=== PATIENT | male | born 1955 | race African-American/Black ===

== ENCOUNTER 2016-09-25 11:49 | Emergency (ER) | payer MEDICARE ==
[2016-09-25 15:51] LABS: BASOPHILS 0.1 % (0-2); EOSINOPHILS 0.7 % (0-7); HEMATOCRIT 45.1 % (42.0-54.0); HEMOGLOBIN 15.9 g/dL (13.5-17.5); IMMATURE GRANULOCYTES 0.1 % (0-5); LYMPHOCYTES 15.5 % (15-50); MCH 30.2 pg (26.0-34.0); MCHC 35.3 g/dL (31.0-37.0); MCV 85.7 fL (80.0-100.0); MEAN PLATELET VOLUME 9.9 fL (7.4-10.4); MONOCYTES 5.3 % (2-11); NEUTROPHILS 78.3 % (40-80); PLATELET COUNT 236 10x3/uL (130-400); RBC 5.26 10x6/uL (4.20-6.10); RDW 13.6 % (11.5-14.5); WBC 7.5 10x3/uL (4.8-10.8)
[2016-09-25 16:23] LABS: ALBUMIN 3.9 g/dL (3.4-5.0); ALKALINE PHOSPHATASE 52 U/L (46-116); ALT (SGPT) 33 U/L (10-68); CALC OSMOLALITY 273 mosm/kg (275-300); CALCIUM 9.4 mg/dL (8.5-10.1); CARBON DIOXIDE 29.6 mmol/L (21.0-32.0); CHLORIDE - SERUM 99 mmol/L (98-107); GLUCOSE 138 mg/dL (74-106); POTASSIUM - SERUM 3.8 mmol/L (3.5-5.1); PROTEIN - SERUM 7.5 g/dL (6.4-8.2); SODIUM 137 mmol/L (136-145); UREA NITROGEN 7 mg/dL (7-18); eGFR NON AFRICAN AMERICAN 80 mL/min (90-120)
== END 2016-09-25 16:45 | disposition home or self-care (01) ==
LOC: D.ER 11:49
PROVIDERS: Emergency Medicine
DX: M25.511 Pain in right shoulder (principal); S46.911A Strain of unspecified muscle, fascia and tendon at shoulder and upper arm level, right arm, initial encounter; X58.XXXA Exposure to other specified factors, initial encounter; Y93.89 Activity, other specified; Y92.89 Other specified places as the place of occurrence of the external cause; M62.838 Other muscle spasm; M75.91 Shoulder lesion, unspecified, right shoulder; M54.12 Radiculopathy, cervical region; E11.9 Type 2 diabetes mellitus without complications; K21.9 Gastro-esophageal reflux disease without esophagitis; I10 Essential (primary) hypertension; F17.200 Nicotine dependence, unspecified, uncomplicated

== ENCOUNTER 2016-11-01 09:53 | Emergency (ER) | payer MEDICARE | END 2016-11-01 10:45 | disposition home or self-care (01) | LOC: D.ER 09:53 | DX: R52 Pain, unspecified (principal); T14.8 Other injury of unspecified body region; X58.XXXA Exposure to other specified factors, initial encounter; I11.9 Hypertensive heart disease without heart failure; I10 Essential (primary) hypertension ==

== ENCOUNTER 2016-12-23 11:01 | Emergency (ER) | payer MEDICARE | END 2016-12-23 11:39 | disposition home or self-care (01) | LOC: D.ER 11:01 | DX: Z03.89 Encounter for observation for other suspected diseases and conditions ruled out (principal); W19.XXXA Unspecified fall, initial encounter; Y93.89 Activity, other specified; Y92.89 Other specified places as the place of occurrence of the external cause; E11.9 Type 2 diabetes mellitus without complications; K21.9 Gastro-esophageal reflux disease without esophagitis; I10 Essential (primary) hypertension; F17.200 Nicotine dependence, unspecified, uncomplicated ==

== ENCOUNTER 2017-09-22 09:29 | Emergency (ER) | payer MEDICARE ==
[2017-09-22 09:56] LABS: BASOPHILS 0.2 % (0-2); EOSINOPHILS 1.7 % (0-7); HEMATOCRIT 40.3 % (42.0-54.0); HEMOGLOBIN 14.9 g/dL (13.5-17.5); IMMATURE GRANULOCYTES 0.2 % (0-5); LYMPHOCYTES 17.8 % (15-50); MCV 83.8 fL (80.0-100.0); MEAN PLATELET VOLUME 9.6 fL (7.4-10.4); MONOCYTES 7.9 % (2-11); NEUTROPHILS 72.2 % (40-80); PLATELET COUNT 199 10x3/uL (130-400); RBC 4.81 10x6/uL (4.20-6.10); RDW 13.3 % (11.5-14.5); WBC 4.8 10x3/uL (4.8-10.8)
[2017-09-22 10:04] LABS: APTT 30.6 SECONDS (22.8-39.4); INR 1.17 (0.85-1.17); PROTIME 14.5 SECONDS (11.6-15.0)
[2017-09-22 10:11] LABS: ALBUMIN 3.8 g/dL (3.4-5.0); ANION GAP 10.3 mmol/L (8-16); BILIRUBIN - TOTAL 0.4 mg/dL (0.2-1.3); CALCIUM 9.2 mg/dL (8.5-10.1); CARBON DIOXIDE 29.6 mmol/L (21.0-32.0); CREATININE - SERUM 1.1 mg/dL (0.6-1.3); POTASSIUM - SERUM 3.9 mmol/L (3.5-5.1); PROTEIN - SERUM 7.7 g/dL (6.4-8.2)
== END 2017-09-22 14:18 | disposition home or self-care (01) ==
LOC: D.ER 09:29
PROVIDERS: Emergency Medicine
DX: G45.9 Transient cerebral ischemic attack, unspecified (principal); I10 Essential (primary) hypertension; E11.9 Type 2 diabetes mellitus without complications; F17.200 Nicotine dependence, unspecified, uncomplicated

== ENCOUNTER 2017-10-15 12:23 | Emergency (ER) | payer MEDICARE ==
[2017-12-05 14:15] VITALS: BMI 29.0
== END 2017-10-15 14:30 | disposition home or self-care (01) ==
LOC: D.ER 12:23
DX: S81.801A Unspecified open wound, right lower leg, initial encounter (principal); W34.00XA Accidental discharge from unspecified firearms or gun, initial encounter; Y93.89 Activity, other specified; Y92.9 Unspecified place or not applicable; E11.9 Type 2 diabetes mellitus without complications; I10 Essential (primary) hypertension

== ENCOUNTER 2017-10-26 09:16 | Emergency (ER) | payer MEDICARE ==
[~2017-10-26] VITALS: Ht 185.4 cm; Wt 90.0 kg
[2017-10-26 09:28] VITALS: Ht 185.4 cm; Wt 90.0 kg
[2017-10-26 10:08] LABS: BASOPHILS 0.2 % (0-2); EOSINOPHILS 1.6 % (0-7); HEMATOCRIT 38.5 % (42.0-54.0); HEMOGLOBIN 14.4 g/dL (13.5-17.5); IMMATURE GRANULOCYTES 0.3 % (0-5); LYMPHOCYTES 13.5 % (15-50); MCH 31.2 pg (26.0-34.0); MCHC 37.4 g/dL (31.0-37.0); MCV 83.3 fL (80.0-100.0); MEAN PLATELET VOLUME 9.8 fL (7.4-10.4); MONOCYTES 6.1 % (2-11); NEUTROPHILS 78.3 % (40-80); PLATELET COUNT 226 10x3/uL (130-400); RBC 4.62 10x6/uL (4.20-6.10); RDW 13.5 % (11.5-14.5); WBC 6.2 10x3/uL (4.8-10.8)
[2017-10-26 10:23] LABS: ALBUMIN 3.9 g/dL (3.4-5.0); ANION GAP 12.4 mmol/L (8-16); BILIRUBIN - TOTAL 0.49 mg/dL (0.2-1.3); CALCIUM 9.7 mg/dL (8.5-10.1); CARBON DIOXIDE 28.2 mmol/L (21.0-32.0); CREATININE - SERUM 1.1 mg/dL (0.6-1.3); POTASSIUM - SERUM 3.6 mmol/L (3.5-5.1)
[2017-10-26] MEDS ORDERED: CYCLOBENZAPRINE10 MG PO (11:42)
[2017-10-26] MEDS ORDERED: IBUPROFEN800 MG PO (11:42)
[2017-10-26] MEDS ORDERED: ACETAMINOPHEN500 M1 PO (11:42)
[2017-10-26 12:20] VITALS: BP 138/89
[2017-12-05 14:15] VITALS: Ht 185.4 cm; Wt 90.0 kg
== END 2017-10-26 12:27 | disposition home or self-care (01) ==
LOC: D.ER 09:16
PROVIDERS: Family Medicine
DX: S81.801A Unspecified open wound, right lower leg, initial encounter (principal); X95.9XXA Assault by unspecified firearm discharge, initial encounter; Y93.89 Activity, other specified; Y92.89 Other specified places as the place of occurrence of the external cause; M79.604 Pain in right leg; I10 Essential (primary) hypertension; Z86.59 Personal history of other mental and behavioral disorders; F17.200 Nicotine dependence, unspecified, uncomplicated

== ENCOUNTER 2017-11-27 22:37 | Emergency (ER) | payer MEDICARE ==
[~2017-11-27] VITALS: Ht 185.4 cm; Wt 90.9 kg
[~2017-11-27 22:37] MED LIST: ACETAMINOPHEN500 M1 PO; CYCLOBENZAPRINE10 MG PO; IBUPROFEN800 MG PO
[2017-11-27 22:41] VITALS: Ht 185.4 cm; Wt 90.9 kg
[2017-11-27 23:38] LABS: HEMATOCRIT 40.3 % (42.0-54.0); HEMOGLOBIN 14.5 g/dL (13.5-17.5); LYMPHOCYTES 6.7 % (15-50); MCH 29.8 pg (26.0-34.0); MCV 82.9 fL (80.0-100.0); MEAN PLATELET VOLUME 9.1 fL (7.4-10.4); NEUTROPHILS 85.3 % (40-80); PLATELET COUNT 263 10x3/uL (130-400); RBC 4.86 10x6/uL (4.20-6.10); RDW 14.4 % (11.5-14.5)
[2017-11-27 23:47] LABS: ALKALINE PHOSPHATASE 54 U/L (46-116); ALT (SGPT) 40 U/L (10-68); BILIRUBIN - TOTAL 0.47 mg/dL (0.2-1.3); CALC OSMOLALITY 256 mosm/kg (275-300); CALCIUM 8.7 mg/dL (8.5-10.1); CARBON DIOXIDE 18.8 mmol/L (21.0-32.0); CHLORIDE - SERUM 93 mmol/L (98-107); GLUCOSE 115 mg/dL (74-106); POTASSIUM - SERUM 3.4 mmol/L (3.5-5.1); SODIUM 128 mmol/L (136-145); UREA NITROGEN 10 mg/dL (7-18); eGFR NON AFRICAN AMERICAN 80 mL/min (90-120)
[2017-11-28] MEDS ORDERED: TYLENOL W/CODEI1 TAB PO (00:27)
[2017-11-28 09:10] VITALS: BP 152/085
[2017-12-05 14:15] VITALS: Ht 185.4 cm; Wt 90.9 kg
== END 2017-11-28 09:11 | disposition home or self-care (01) ==
LOC: D.ER 22:37
PROVIDERS: Emergency Medicine
DX: S09.93XA Unspecified injury of face, initial encounter (principal); V09.9XXA Pedestrian injured in unspecified transport accident, initial encounter; Y93.89 Activity, other specified; Y92.410 Unspecified street and highway as the place of occurrence of the external cause; S16.1XXA Strain of muscle, fascia and tendon at neck level, initial encounter; S09.90XA Unspecified injury of head, initial encounter; F17.200 Nicotine dependence, unspecified, uncomplicated

== ENCOUNTER 2017-12-04 18:57 | Inpatient (IN) | payer MEDICARE ==
[~2017-12-04] VITALS: Ht 185.4 cm; Wt 100.0 kg
[~2017-12-04 18:57] MED LIST changes: +TYLENOL W/CODEI1 TAB PO
[2017-12-04 19:30] VITALS: BP 181/111
[2017-12-04 19:34] LABS: BASOPHILS 0.4 % (0-2); EOSINOPHILS 1.3 % (0-7); HEMATOCRIT 35.8 % (42.0-54.0); HEMOGLOBIN 13.8 g/dL (13.5-17.5); IMMATURE GRANULOCYTES 0.2 % (0-5); LYMPHOCYTES 16.4 % (15-50); MCH 30.7 pg (26.0-34.0); MCHC 38.5 g/dL (31.0-37.0); MCV 79.7 fL (80.0-100.0); MEAN PLATELET VOLUME 9.7 fL (7.4-10.4); MONOCYTES 5.8 % (2-11); NEUTROPHILS 75.9 % (40-80); RBC 4.49 10x6/uL (4.20-6.10); RDW 12.6 % (11.5-14.5); WBC 5.5 10x3/uL (4.8-10.8)
[2017-12-04 19:52] LABS: ALBUMIN 3.6 g/dL (3.4-5.0); ALKALINE PHOSPHATASE 52 U/L (46-116); ALT (SGPT) 37 U/L (10-68); BILIRUBIN - TOTAL 0.68 mg/dL (0.2-1.3); CALC OSMOLALITY 240 mosm/kg (275-300); CALCIUM 8.4 mg/dL (8.5-10.1); CARBON DIOXIDE 24.1 mmol/L (21.0-32.0); CHLORIDE - SERUM 86 mmol/L (98-107); CREATININE - SERUM 0.8 mg/dL (0.6-1.3); GLUCOSE 138 mg/dL (74-106); PROTEIN - SERUM 7.3 g/dL (6.4-8.2); UREA NITROGEN 11 mg/dL (7-18); eGFR NON AFRICAN AMERICAN > 90 mL/min (90-120)
[2017-12-04 19:58] LABS: SODIUM 119 mmol/L (136-145)
[2017-12-04 20:00] VITALS: BP 178/109
[2017-12-04 20:04] LABS: PLATELET COUNT 200 10x3/uL (130-400)
[2017-12-04] MEDS ORDERED: LIPITOR20 MG PO (20:26)
[2017-12-04] MEDS ORDERED: RIOMET500 MG/5 M PO (20:26)
[2017-12-04] MEDS ORDERED: MINIPRESS1 MG PO (20:26)
[2017-12-04] MEDS ORDERED: TYLENOL W/CODEI1 TAB (20:26)
[2017-12-04] MEDS ORDERED: BUSPAR5 MG PO (20:27)
[2017-12-04] MEDS ORDERED: COREG 3.1253.125 MG PO (20:27)
[2017-12-04] MEDS ORDERED: SEROQUEL25 MG PO (20:27)
[2017-12-04] MEDS ORDERED: HALDOL5 MG PO (20:27)
[2017-12-04] MEDS ORDERED: DIOVAN40 MG (20:27)
[2017-12-04] MEDS ORDERED: MOBIC7.5 MG PO (20:27)
[2017-12-04] MEDS ORDERED: BENZTROPINE ME0.5 MG PO (20:27)
[2017-12-04 20:30] VITALS: BP 177/114
[2017-12-04 21:00] VITALS: BP 167/101
[2017-12-04 22:53] VITALS: BP 158/110
[2017-12-04 22:57] LABS: CALC OSMOLALITY 247 mosm/kg (275-300); CALCIUM 8.3 mg/dL (8.5-10.1); CARBON DIOXIDE 29.2 mmol/L (21.0-32.0); CHLORIDE - SERUM 88 mmol/L (98-107); CREATININE - SERUM 0.8 mg/dL (0.6-1.3); GLUCOSE 111 mg/dL (74-106); POTASSIUM - SERUM 3.3 mmol/L (3.5-5.1); SODIUM 123 mmol/L (136-145); UREA NITROGEN 11 mg/dL (7-18); eGFR NON AFRICAN AMERICAN > 90 mL/min (90-120)
[2017-12-05 00:22] LABS: APPEARANCE CLEAR (CLEAR); BILIRUBIN NEGATIVE (NEGATIVE); COLOR YELLOW (YELLOW); GLUCOSE NEGATIVE (NEGATIVE); KETONE NEGATIVE (NEGATIVE); NITRITE NEGATIVE (NEGATIVE); PROTEIN NEGATIVE (NEGATIVE); SPECIFIC GRAVITY 1.015 (1.005-1.020); UROBILINOGEN NORMAL (NORMAL)
[2017-12-05 00:23] LABS: BACTERIA FEW /hpf (NONE SEEN); EPITHELIAL CELLS 0-5 /hpf (0-5); RED CELLS - URINE 0-5 /hpf (0-5); WHITE CELLS - URINE 0-5 /hpf (0-5)
[2017-12-05 02:44] LABS: CALC OSMOLALITY 245 mosm/kg (275-300); CALCIUM 8.4 mg/dL (8.5-10.1); CARBON DIOXIDE 28.2 mmol/L (21.0-32.0); CHLORIDE - SERUM 89 mmol/L (98-107); CREATININE - SERUM 0.8 mg/dL (0.6-1.3); GLUCOSE 108 mg/dL (74-106); POTASSIUM - SERUM 3.2 mmol/L (3.5-5.1); SODIUM 122 mmol/L (136-145); UREA NITROGEN 9 mg/dL (7-18); eGFR NON AFRICAN AMERICAN > 90 mL/min (90-120)
[2017-12-05 04:47] VITALS: BP 159/91; BMI 29.0
[2017-12-05 04:48] LABS: BASOPHILS 0.2 % (0-2); EOSINOPHILS 0.6 % (0-7); HEMATOCRIT 34.4 % (42.0-54.0); HEMOGLOBIN 12.9 g/dL (13.5-17.5); IMMATURE GRANULOCYTES 0.2 % (0-5); LYMPHOCYTES 9.3 % (15-50); MCH 29.7 pg (26.0-34.0); MCHC 37.5 g/dL (31.0-37.0); MCV 79.3 fL (80.0-100.0); MEAN PLATELET VOLUME 9.8 fL (7.4-10.4); MONOCYTES 7.1 % (2-11); NEUTROPHILS 82.6 % (40-80); PLATELET COUNT 216 10x3/uL (130-400); RBC 4.34 10x6/uL (4.20-6.10); RDW 12.5 % (11.5-14.5); WBC 6.3 10x3/uL (4.8-10.8)
[2017-12-05 05:05] LABS: CALC OSMOLALITY 247 mosm/kg (275-300); CALCIUM 8.2 mg/dL (8.5-10.1); CARBON DIOXIDE 27.9 mmol/L (21.0-32.0); CHLORIDE - SERUM 90 mmol/L (98-107); CREATININE - SERUM 0.7 mg/dL (0.6-1.3); GLUCOSE 104 mg/dL (74-106); POTASSIUM - SERUM 3.2 mmol/L (3.5-5.1); SODIUM 124 mmol/L (136-145); UREA NITROGEN 8 mg/dL (7-18); eGFR NON AFRICAN AMERICAN > 90 mL/min (90-120)
[2017-12-05 09:05] VITALS: BP 144/91
[2017-12-05 12:48] VITALS: BP 170/104
[2017-12-05 14:15] VITALS: Ht 185.4 cm; Wt 100.0 kg
[2017-12-05] MEDS ORDERED: DIOVAN HCT 160/1 TAB PO (15:22)
[2017-12-05] MEDS ORDERED: TYLENOL W/CODEI1 TAB PO (15:23)
[2017-12-05] MEDS ORDERED: HALDOL5 MG PO (15:23)
[2017-12-05 16:24] VITALS: BP 182/103
[2017-12-05 19:19] VITALS: BP 155/99
[2017-12-06 03:42] VITALS: BP 173/100
[2017-12-06 06:50] LABS: BASOPHILS 0.2 % (0-2); EOSINOPHILS 0.6 % (0-7); HEMATOCRIT 37.5 % (42.0-54.0); HEMOGLOBIN 14.1 g/dL (13.5-17.5); IMMATURE GRANULOCYTES 0.4 % (0-5); LYMPHOCYTES 13.8 % (15-50); MCH 30.5 pg (26.0-34.0); MCHC 37.6 g/dL (31.0-37.0); MCV 81.2 fL (80.0-100.0); MEAN PLATELET VOLUME 9.4 fL (7.4-10.4); PLATELET COUNT 214 10x3/uL (130-400); RBC 4.62 10x6/uL (4.20-6.10); RDW 13.1 % (11.5-14.5); WBC 4.8 10x3/uL (4.8-10.8)
[2017-12-06 07:08] LABS: CALC OSMOLALITY 270 mosm/kg (275-300); CALCIUM 8.7 mg/dL (8.5-10.1); CARBON DIOXIDE 26.3 mmol/L (21.0-32.0); CHLORIDE - SERUM 102 mmol/L (98-107); CREATININE - SERUM 0.8 mg/dL (0.6-1.3); GLUCOSE 110 mg/dL (74-106); POTASSIUM - SERUM 3.7 mmol/L (3.5-5.1); SODIUM 136 mmol/L (136-145); UREA NITROGEN 6 mg/dL (7-18); eGFR NON AFRICAN AMERICAN > 90 mL/min (90-120)
[2017-12-06 08:43] VITALS: BP 157/97
[2017-12-06 11:48] VITALS: BP 141/91
[2017-12-06 19:40] VITALS: BP 169/70
[2017-12-06 19:43] VITALS: BP 169/110
[2017-12-07 04:12] VITALS: BP 176/100
[2017-12-07 09:49] VITALS: BP 159/101
[2017-12-07 12:51] LABS: CALC OSMOLALITY 274 mosm/kg (275-300); CALCIUM 9.4 mg/dL (8.5-10.1); CARBON DIOXIDE 28.9 mmol/L (21.0-32.0); CHLORIDE - SERUM 101 mmol/L (98-107); CREATININE - SERUM 0.9 mg/dL (0.6-1.3); GLUCOSE 111 mg/dL (74-106); SODIUM 138 mmol/L (136-145); UREA NITROGEN 7 mg/dL (7-18); eGFR NON AFRICAN AMERICAN 90 mL/min (90-120)
[2017-12-07 12:53] LABS: POTASSIUM - SERUM 4.3 mmol/L (3.5-5.1)
[2017-12-07 12:57] LABS: BASOPHILS 0.3 % (0-2); EOSINOPHILS 0.8 % (0-7); HEMATOCRIT 40.2 % (42.0-54.0); HEMOGLOBIN 14.9 g/dL (13.5-17.5); IMMATURE GRANULOCYTES 0.3 % (0-5); LYMPHOCYTES 13.7 % (15-50); MCH 30.5 pg (26.0-34.0); MCHC 37.1 g/dL (31.0-37.0); MCV 82.4 fL (80.0-100.0); MEAN PLATELET VOLUME 9.8 fL (7.4-10.4); MONOCYTES 9.2 % (2-11); NEUTROPHILS 75.7 % (40-80); PLATELET COUNT 222 10x3/uL (130-400); RBC 4.88 10x6/uL (4.20-6.10); RDW 13.2 % (11.5-14.5); WBC 6.4 10x3/uL (4.8-10.8)
[2017-12-07] MEDS ORDERED: NICODERM C1 PATCH .1 TRANSDERM (13:58)
[2017-12-07] MEDS ORDERED: PROTONIX40 MG PO (13:59)
[2017-12-07] MEDS ORDERED: THERMOTABS 1 GM1 GM PO (14:00)
== END 2017-12-07 16:01 | disposition home health service (06) | DRG 640 ==
LOC: D.ER 18:57 → D.MS 22:10 → D.EDHOLD 22:10 → D.MS 23:31
PROVIDERS: Family Medicine; Internal Medicine Nephrology
DX: E87.1 Hypo-osmolality and hyponatremia (principal); G93.41 Metabolic encephalopathy; F17.213 Nicotine dependence, cigarettes, with withdrawal; R53.1 Weakness; E87.6 Hypokalemia; I10 Essential (primary) hypertension; E78.5 Hyperlipidemia, unspecified; E11.9 Type 2 diabetes mellitus without complications; Z79.84 Long term (current) use of oral hypoglycemic drugs; D50.9 Iron deficiency anemia, unspecified; F10.10 Alcohol abuse, uncomplicated

== ENCOUNTER 2018-08-28 10:51 | Inpatient (IN) | payer OTHER, MEDICAID ==
--- NOTE | ~2018-08-28 | PN ---
PATIENT:MELISSA ISAAC MEDICAL RECORD: [id number] LOCATION:[facility] ADMISSION DATE: 08/28/18 PROGRESS NOTE DATE OF SERVICE: 09/02/2018 SUBJECTIVE: Mr. Isaac is a 63-year-old male with a long history of schizophrenia who came in secondary to suicidal ideation. He initially denied it, but then when asked about a plan, he had a plan to slit his throat. According to Dr. Perales's initial notes, the patient was actively responding to internal stimuli and had not been taking his psychotropics for several days. Today, the patient is pleasant and cooperative. He states that Dr. Perales told him that he is going to find him a job. He is somewhat tangential in his thought process. Nursing reports that he lies on the sofa most of the day. His blood pressure has been elevated, the last recorded 152/119. General practitioner has seen him and recommended apparently clonidine p.r.n. on top of his other antihypertensives. The patient has been eating 100%. He slept 8.25 hours. He denied suicidal ideation today. He did not seem to be actively responding to internal stimuli, although as stated above, he is fairly grandiose and his expectations become reemployed. OBJECTIVE: VITAL SIGNS: 97.9, 88, 18, 152/119, and 96%. ASSESSMENT: Unchanged. PLAN: As noncompliance at home is an issue and the patient states his current psychiatrist had stopped working, he preferred the local [facility]. We will also start Haldol Decanoate 50 mg q.30 days, first dose today. Side effects, risks and benefits discussed including but not limited to, EPS, NMS and tardive dyskinesia. Case discussed with nursing. Chart was reviewed and the patient interviewed. TRANSINT:[id number] Voice Confirmation ID: [id number] DOCUMENT ID: [id number] DUSTIN LAMAR MD CC: [id number] DICTATION DATE: 09/02/18 1139 STORE WORKER: 09/02/18 1608 ADM IN [place] [address] [place] [address]
[~2018-08-28 10:51] MED LIST changes: +BENZTROPINE ME0.5 MG PO; +BUSPAR5 MG PO; +COREG 3.1253.125 MG PO; +DIOVAN HCT 160/1 TAB PO; +DIOVAN40 MG; +HALDOL5 MG PO; +LIPITOR20 MG PO; +MINIPRESS1 MG PO; +MOBIC7.5 MG PO; +NICODERM C1 PATCH .1 TRANSDERM; +PROTONIX40 MG PO; +RIOMET500 MG/5 M PO; +SEROQUEL25 MG PO; +THERMOTABS 1 GM1 GM PO; +TYLENOL W/CODEI1 TAB
[2018-08-28 11:45] LABS: ALBUMIN 3.9 g/dL (3.4-5.0); ALKALINE PHOSPHATASE 41 U/L (46-116); ALT (SGPT) 42 U/L (10-68); BILIRUBIN - TOTAL 0.43 mg/dL (0.2-1.3); CALC OSMOLALITY 275 mosm/kg (275-300); CALCIUM 8.9 mg/dL (8.5-10.1); CARBON DIOXIDE 28.2 mmol/L (21.0-32.0); CHLORIDE - SERUM 102 mmol/L (98-107); CREATININE - SERUM 0.9 mg/dL (0.6-1.3); GLUCOSE 105 mg/dL (74-106); PROTEIN - SERUM 8.2 g/dL (6.4-8.2); SODIUM 139 mmol/L (136-145); UREA NITROGEN 8 mg/dL (7-18); eGFR NON AFRICAN AMERICAN 90 mL/min (90-120)
[2018-08-28 11:50] LABS: BASOPHILS 0.1 % (0-2); EOSINOPHILS 0.3 % (0-7); HEMATOCRIT 43.3 % (42.0-54.0); HEMOGLOBIN 15.7 g/dL (13.5-17.5); IMMATURE GRANULOCYTES 0.3 % (0-5); MCHC 36.3 g/dL (31.0-37.0); MCV 82.6 fL (80.0-100.0); MEAN PLATELET VOLUME 9.7 fL (7.4-10.4); MONOCYTES 5.4 % (2-11); NEUTROPHILS 77.9 % (40-80); PLATELET COUNT 209 10x3/uL (130-400); RBC 5.24 10x6/uL (4.20-6.10); RDW 14.6 % (11.5-14.5); WBC 6.8 10x3/uL (4.8-10.8)
[2018-08-28 13:39] LABS: APTT 30.3 SECONDS (22.8-39.4); INR 1.11 (0.85-1.17); PROTIME 13.8 SECONDS (11.6-15.0)
[2018-08-28 13:50] LABS: CHOL - HDL RATIO 3.8 ratio (2.3-4.9); LDL-HDL RATIO 2.3 ratio (1.5-3.5); MAGNESIUM - SERUM 2.5 mg/dL (1.8-2.4); THYROID STIMULATING HORMONE 4.43 uIU/mL (0.36-3.74)
[2018-08-28 20:18] VITALS: BP 164/104
[2018-08-28 22:16] VITALS: BP 164/102; BMI 27.2
[2018-08-29 09:30] VITALS: BP 164/104
[2018-08-29 11:21] LABS: FOLATE (FOLIC ACID) - SERUM 14.4 ng/mL (>3.0)
[2018-08-29 11:44] VITALS: BMI 27.2
[2018-08-29 13:52] VITALS: BMI 27.1
[2018-08-29 20:00] VITALS: BP 146/85
[2018-08-30 07:18] LABS: APPEARANCE CLEAR (CLEAR); BILIRUBIN NEGATIVE (NEGATIVE); COLOR YELLOW (YELLOW); GLUCOSE NEGATIVE (NEGATIVE); KETONE NEGATIVE (NEGATIVE); NITRITE NEGATIVE (NEGATIVE); PROTEIN NEGATIVE (NEGATIVE); UROBILINOGEN NORMAL (NORMAL)
[2018-08-30 07:21] LABS: UDS - AMPHET NEGATIVE QUAL (NEGATIVE); UDS - BARB NEGATIVE QUAL (NEGATIVE); UDS - BENZO NEGATIVE QUAL (NEGATIVE); UDS - COCAINE NEGATIVE QUAL (NEGATIVE); UDS - OPIATE NEGATIVE QUAL (NEGATIVE); UDS - PCP NEGATIVE QUAL (NEGATIVE); UDS - THC NEGATIVE QUAL (NEGATIVE)
[2018-08-30 09:30] VITALS: BP 136/96
[2018-08-30 11:08] LABS: T4 THYROXIN - FREE 0.86 ng/dL (0.76-1.46); THYROID STIMULATING HORMONE 6.18 uIU/mL (0.36-3.74)
[2018-08-30 20:19] VITALS: BP 130/72
[2018-08-31 09:21] VITALS: BP 154/128
--- NOTE | 2018-08-31 12:33 | PN ---
PATIENT:MELISSA ISAAC MEDICAL RECORD: [id number] LOCATION:[facility] ADMISSION DATE: 08/28/18 PROGRESS NOTE DATE OF SERVICE: 08/30/2018 SUBJECTIVE: The patient's case was discussed with staff. He has no new complaint. OBJECTIVE: The patient denies intent to harm himself or others. He generally tolerates his medicines well. He is complaining of some extrapyramidal side effects and tells me that in the past, he has taken a higher dose of Cogentin. I have told him I would like to give him 2 mg twice a day. He wants it 1 mg 4 times a day that is distinction without a difference and if it is making him more satisfied am just going to go ahead and order it that way. He does drink excessively. He freely admits that I spoke with him about stopping drinking and he says he is not willing to. He says he will cut down, but he is evasive about how much he drinks and how much he will cut down. His niece is one of the employees here and she says he drinks excessively and has a history of not taking his medications. I will consider a long-acting Haldol injection. I am not sure what I can do if anything about the alcohol abuse, especially since he does not want to stop drinking. TRANSINT:[id number] Voice Confirmation ID: [id number] DOCUMENT ID: [id number] JARON HULL MD at 1233 CC: [id number] DICTATION DATE: 08/30/18 170 SOLE ROUGHER: 08/31/18 0027 ADM IN [place] [address] [place] [address]
--- NOTE | 2018-08-31 12:33 | PSY ---
PATIENT NAME:MELISSA ISAAC MEDICAL RECORD: [id number] : 51 LOCATION:[facility] ADMISSION DATE: 08/28/18 ACCOUNT: [id number] PSYCHIATRIC EVALUATION DATE OF EVALUATION: 08/29/18 IDENTIFYING DATA: The patient is 63 years old and he is admitted to the hospital on a voluntary basis secondary to psychotic symptoms. CHIEF COMPLAINT: None. HISTORY OF PRESENT ILLNESS: The patient has a known history of chronic mental illness. He has been having both auditory and visual hallucinations for the past 3-4 days. He is hearing voices telling him to kill himself. He unfortunately has stopped taking his medications. He denies any thoughts of harming others. PAST MEDICAL HISTORY: Significant for arthritis, a right nephrectomy, diabetes and hypertension. FAMILY HISTORY: Noncontributory. ALLERGIES: No known drug allergies. CURRENT MEDICATIONS: Include Habitrol patch, Protonix, Minipress, Lipitor, Haldol, Coreg, Mobic, Cogentin and Diovan. SOCIAL HISTORY: The patient does intermittently abuse alcohol, but not on a daily basis. He is currently single. 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 He is also a [place] . MENTAL STATUS EXAMINATION: The patient is awake, alert and oriented to person and place, but not really to time or situation. His mood is flat. His affect is constricted. Thought processes are disorganized. Memory, concentration, and abstraction abilities are moderately impaired. He denies any active intent to harm himself or others as well as overt psychotic symptoms. He clearly is experiencing psychotic symptoms as I talk to him, but he is denying them. ASSETS: Supportive family members. LIABILITIES: Limited insight. DIAGNOSTIC IMPRESSION: AXIS I: Schizophrenia, chronic, undifferentiated. AXIS II: None. AXIS III: Hypertension, chronic obstructive pulmonary disease, diabetes. AXIS IV: Moderate stressors. AXIS V: Global assessment of functioning is 30. PLAN: At this time, the patient is admitted to the hospital secondary to auditory hallucinations telling him to kill himself. He will be comprehensively evaluated from both a medical, psychological, and social standpoint. He will be treated with both mood stabilizing and memory enhancing medications. TRANSINT:[id number] Voice Confirmation ID: [id number] DOCUMENT ID: [id number] JARON HULL MD at 1233 CC: [id number] DICTATION DATE: 08/29/18 1553 COMPUTER OPERATIONS TECHNICIAN: 08/29/18 1602 ADM IN [place] [id number] [place] [id number]
[2018-08-31 21:47] VITALS: BP 176/103
[2018-09-01 07:00] VITALS: BP 174/92
--- NOTE | 2018-09-01 12:21 | PN ---
PATIENT:MELISSA ISAAC MEDICAL RECORD: [id number] LOCATION:[facility] ADMISSION DATE: 08/28/18 PROGRESS NOTE DATE OF SERVICE: 08/31/2018 SUBJECTIVE: The patient's case was discussed with staff. He has no new complaint. OBJECTIVE: The patient is tolerating his medicines well. He is showing no evidence of alcohol withdrawal. ASSESSMENT: Schizophrenia. PLAN: I am going to reduce the patient's Haldol slightly. I think he could be reasonably managed on a lower dose. His long-term prognosis is guarded. He drinks excessively and has no interest in making a significant change in that behavior. TRANSINT:[id number] Voice Confirmation ID: [id number] DOCUMENT ID: [id number] JARON HULL MD at 1221 CC: [id number] DICTATION DATE: 08/31/18 1243 TITLE LAWYER: 08/31/182011 ADM IN [facility] [address] [place] [address]
[2018-09-01 21:03] VITALS: BP 166/79
[2018-09-02 07:00] VITALS: BP 152/119
[2018-09-02 20:30] VITALS: BP 162/93
[2018-09-03 08:00] VITALS: BP 150/113
[2018-09-03 19:32] VITALS: BP 180/108
[2018-09-04 08:00] VITALS: BP 124/43; BP 139/96
--- NOTE | 2018-09-04 12:57 | PN ---
PATIENT:MELISSA ISAAC MEDICAL RECORD: [id number] LOCATION:[facility] ADMISSION DATE: 08/28/18 PROGRESS NOTE DATE OF SERVICE: 09/03/2018 SUBJECTIVE: The patient's case was discussed with staff. He has no new complaint. OBJECTIVE: The patient denies intent to harm himself or others. He generally tolerates his medicines well. He has had no evidence of alcohol withdrawal and he says that he is going to cutdown his beer drinking from 30 pack a day to just 2 a day. I hope he really will do that, but I am not optimistic that is the case. ASSESSMENT: No change in diagnoses. PLAN: Current medicines have been reviewed and will be maintained. Long-term prognosis is guarded. I am going to reduce his Haldol slightly secondary to a likelihood that he will not need this. That would be the case if he does stop drinking or cuts it down to just 2 bottles of beer a day. TRANSINT:[id number] Voice Confirmation ID: [id number] DOCUMENT ID: [id number] JARON HULL MD at 1257 CC: [id number] DICTATION DATE: 09/03/18 1008 CANDLEMAKER: 09/03/18 1452 ADM IN [place] [id number] [place] [address]
--- NOTE | 2018-09-04 12:57 | PN ---
PATIENT:MELISSA ISAAC MEDICAL RECORD: [id number] LOCATION:[facility] ADMISSION DATE: 08/28/18 PROGRESS NOTE DATE OF SERVICE: 09/01/2018 SUBJECTIVE: The patient's case was discussed with staff. He has no new complaint. OBJECTIVE: The patient is in good behavioral control with limited insight about his condition. ASSESSMENT: Schizophrenia. PLAN: Current medicines have been reviewed and will be maintained. Long-term prognosis is guarded. TRANSINT:[id number] Voice Confirmation ID: [id number] DOCUMENT ID: [id number] JARON HULL MD at 1257 CC: [id number] DICTATION DATE: 09/01/18 1215 REAL ESTATE VALUER: 09/01/18 1356 ADM IN [place] [id number] [place] [id number]
[2018-09-04 20:00] VITALS: BP 166/100
[2018-09-05 08:30] VITALS: BP 151/99
--- NOTE | 2018-09-05 12:29 | PN ---
PATIENT:MELISSA ISAAC MEDICAL RECORD: [id number] LOCATION:[facility] ADMISSION DATE: 08/28/18 PROGRESS NOTE DATE OF SERVICE: 09/04/2018 SUBJECTIVE: The patient's case was discussed with staff. He has no new complaint. OBJECTIVE: The patient denies intent to harm himself or others. He generally tolerates his medicines well. He is denying psychotic symptoms. He has no evidence of alcohol withdrawal at this point. ASSESSMENT: Schizophrenia. PLAN: Current medicines have been reviewed and will be maintained. Long-term prognosis is guarded. TRANSINT:[id number] Voice Confirmation ID: [id number] DOCUMENT ID: [id number] JARON HULL MD at 1229 CC: [id number] DICTATION DATE: 09/04/18 1535 CONSTRUCTION LABORER: 09/04/18 1709 ADM IN [place] [id number] [place] [id number]
[2018-09-05] MEDS ORDERED: DIOVAN80 MG PO (13:04)
[2018-09-05] MEDS ORDERED: BENZTROPINE MESY1 MG PO (13:05)
[2018-09-05] MEDS ORDERED: HCTZ25 MG PO (13:06)
[2018-09-05] MEDS ORDERED: VITAMIN D5000 UNIT PO (13:06)
[2018-09-05] MEDS ORDERED: VITAMIN B-1100 M1 PO (13:06)
[2018-09-05] MEDS ORDERED: FOLATE0.4 MG PO (13:06)
[2018-09-05 19:43] VITALS: BP 138/86
[2018-09-06 08:56] VITALS: BP 147/84
--- NOTE | 2018-09-06 13:58 | PN ---
PATIENT:MELISSA ISAAC MEDICAL RECORD: [id number] LOCATION:[facility] ADMISSION DATE: 08/28/18 PROGRESS NOTE DATE OF SERVICE: 09/05/2018 SUBJECTIVE: The patient's case was discussed with staff. He has no new complaint. OBJECTIVE: The patient is showing no evidence of alcohol withdrawal. He has no overt psychotic symptoms. ASSESSMENT: Schizophrenia. PLAN: Current medicines have been reviewed and will be maintained. I anticipate the patient can be transitioned out of the hospital tomorrow if this level of improvement continues. TRANSINT:[id number] Voice Confirmation ID: [id number] DOCUMENT ID: [id number] JARON HULL MD at 1358 CC: [id number] DICTATION DATE: 09/05/18 1302 SENIOR RESEARCH EXECUTIVE: 09/05/18 1320 ADM IN [facility] [address] [place] [address]
--- NOTE | 2018-09-07 09:39 | PN ---
PATIENT:MELISSA ISAAC MEDICAL RECORD: [id number] LOCATION:[facility] ADMISSION DATE: 08/28/18 PROGRESS NOTE DATE OF SERVICE: 09/06/2018 SUBJECTIVE: The patient's case was discussed with staff. He has no new complaint. OBJECTIVE: The patient is not delusional. He is in good behavioral control. He has limited insight about his condition. He tolerates his medicines well. ASSESSMENT: Schizophrenia. PLAN: Current medicines have been reviewed and will be maintained. Long-term prognosis is guarded. I anticipate the patient can be transitioned out of the hospital today. TRANSINT:[id number] Voice Confirmation ID: [id number] DOCUMENT ID: [id number] JARON HULL MD at 0939 CC: [id number] DICTATION DATE: 09/06/18 1410 EXECUTIVE COMPENSATION ANALYST: 09/06/18 1530 DIS IN 09/06/18 [facility] [address] [place] [address]
== END 2018-09-06 14:30 | disposition home or self-care (01) | DRG 885 ==
LOC: D.ER 10:51 → D.EDHOLD 14:09 → D.PSYCH 16:13
PROVIDERS: Family Medicine; ADMIT Psychiatry & Neurology Psychiatry
DX: F20.5 Residual schizophrenia (principal); R45.851 Suicidal ideations; I10 Essential (primary) hypertension; J44.9 Chronic obstructive pulmonary disease, unspecified; E11.9 Type 2 diabetes mellitus without complications; M19.90 Unspecified osteoarthritis, unspecified site; F10.10 Alcohol abuse, uncomplicated; K21.9 Gastro-esophageal reflux disease without esophagitis; E78.5 Hyperlipidemia, unspecified; E03.9 Hypothyroidism, unspecified; E55.9 Vitamin D deficiency, unspecified; Z72.0 Tobacco use

== ENCOUNTER 2018-09-12 11:45 | Emergency (ER) | payer OTHER, MEDICAID ==
[~2018-09-12] VITALS: Ht 185.4 cm; Wt 91.8 kg
[~2018-09-12 11:45] MED LIST changes: +BENZTROPINE MESY1 MG PO; +DIOVAN80 MG PO; +FOLATE0.4 MG PO; +HCTZ25 MG PO; +VITAMIN B-1100 M1 PO; +VITAMIN D5000 UNIT PO
[2018-09-12 11:57] VITALS: BP 174/78; Ht 185.4 cm; Wt 91.8 kg
== END 2018-09-12 13:17 | disposition left against medical advice (07) ==
LOC: D.ER 11:45
DX: R51 Headache (principal)

== ENCOUNTER 2018-10-30 21:16 | Emergency (ER) | payer OTHER, MEDICAID ==
[~2018-10-30] VITALS: Ht 185.4 cm; Wt 93.6 kg
[2018-10-30 21:52] VITALS: Ht 185.4 cm; Wt 93.6 kg
[2018-10-30] MEDS ORDERED: VOLTAREN75 MG PO (22:23)
[2018-10-30 22:40] VITALS: BP 144/88
== END 2018-10-30 22:46 | disposition home or self-care (01) ==
LOC: D.ER 21:16
DX: M79.605 Pain in left leg (principal); M79.604 Pain in right leg; M79.602 Pain in left arm; M79.601 Pain in right arm; G89.29 Other chronic pain

== ENCOUNTER 2019-01-14 04:19 | Emergency (ER) | payer OTHER, MEDICAID ==
[~2019-01-14] VITALS: Ht 185.4 cm; Wt 96.4 kg
[~2019-01-14 04:19] MED LIST changes: +VOLTAREN75 MG PO
[2019-01-14 04:22] VITALS: Ht 185.4 cm; Wt 96.4 kg
[2019-01-14 04:46] LABS: BASOPHILS 0.2 % (0-2); EOSINOPHILS 1.8 % (0-7); HEMATOCRIT 39.1 % (42.0-54.0); HEMOGLOBIN 14.5 g/dL (13.5-17.5); IMMATURE GRANULOCYTES 0.2 % (0-5); LYMPHOCYTES 19.6 % (15-50); MCH 29.4 pg (26.0-34.0); MCHC 37.1 g/dL (31.0-37.0); MCV 79.1 fL (80.0-100.0); MEAN PLATELET VOLUME 9.7 fL (7.4-10.4); MONOCYTES 7.7 % (2-11); NEUTROPHILS 70.5 % (40-80); PLATELET COUNT 200 10x3/uL (130-400); RBC 4.94 10x6/uL (4.20-6.10); RDW 14.5 % (11.5-14.5); WBC 6.3 10x3/uL (4.8-10.8)
[2019-01-14 05:03] LABS: ALBUMIN 3.7 g/dL (3.4-5.0); ALKALINE PHOSPHATASE 63 U/L (46-116); ALT (SGPT) 31 U/L (10-68); BILIRUBIN - TOTAL 0.37 mg/dL (0.2-1.3); CALC OSMOLALITY 275 mosm/kg (275-300); CARBON DIOXIDE 26.4 mmol/L (21.0-32.0); CHLORIDE - SERUM 101 mmol/L (98-107); GLUCOSE 136 mg/dL (74-106); POTASSIUM - SERUM 3.5 mmol/L (3.5-5.1); PROTEIN - SERUM 7.7 g/dL (6.4-8.2); SODIUM 138 mmol/L (136-145); UREA NITROGEN 8 mg/dL (7-18); eGFR NON AFRICAN AMERICAN 80 mL/min (90-120)
[2019-01-14 05:05] LABS: AMYLASE - SERUM 45 U/L (25-115); LIPASE 114 U/L (73-393); TROPONIN-I < 0.017 ng/mL (0.000-0.060)
[2019-01-14 05:15] LABS: APPEARANCE CLEAR (CLEAR); BILIRUBIN NEGATIVE (NEGATIVE); COLOR YELLOW (YELLOW); GLUCOSE NEGATIVE (NEGATIVE); KETONE NEGATIVE (NEGATIVE); NITRITE NEGATIVE (NEGATIVE); PROTEIN NEGATIVE (NEGATIVE); UROBILINOGEN NORMAL (NORMAL)
[2019-01-14 05:16] VITALS: BP 168/104
[2019-01-14] MEDS ORDERED: PROTONIX40 MG PO (07:09)
[2019-01-15] MEDS ORDERED: VOLTAREN100 GM TOPICAL (21:22)
[2019-01-15] MEDS ORDERED: MIRALAX17 GM PO (21:22)
== END 2019-01-14 07:18 | disposition home or self-care (01) ==
LOC: D.ER 04:19
PROVIDERS: Family Medicine
DX: K29.70 Gastritis, unspecified, without bleeding (principal); R10.31 Right lower quadrant pain

== ENCOUNTER 2019-01-15 19:16 | Emergency (ER) | payer OTHER, MEDICAID ==
[~2019-01-15] VITALS: Ht 185.4 cm; Wt 93.7 kg
[2019-01-15 19:20] VITALS: Ht 185.4 cm; Wt 93.7 kg
[2019-01-15 19:50] LABS: APPEARANCE CLEAR (CLEAR); BILIRUBIN NEGATIVE (NEGATIVE); COLOR STRAW (YELLOW); GLUCOSE NEGATIVE (NEGATIVE); KETONE NEGATIVE (NEGATIVE); NITRITE NEGATIVE (NEGATIVE); PROTEIN NEGATIVE (NEGATIVE); UROBILINOGEN NORMAL (NORMAL)
[2019-01-15 19:58] LABS: BASOPHILS 0.3 % (0-2); EOSINOPHILS 1.1 % (0-7); HEMATOCRIT 38.5 % (42.0-54.0); HEMOGLOBIN 14.5 g/dL (13.5-17.5); IMMATURE GRANULOCYTES 0.1 % (0-5); MCH 29.6 pg (26.0-34.0); MCHC 37.7 g/dL (31.0-37.0); MCV 78.6 fL (80.0-100.0); MEAN PLATELET VOLUME 9.8 fL (7.4-10.4); MONOCYTES 8.4 % (2-11); NEUTROPHILS 71.1 % (40-80); PLATELET COUNT 207 10x3/uL (130-400); RDW 14.4 % (11.5-14.5); WBC 7.1 10x3/uL (4.8-10.8)
[2019-01-15 20:00] LABS: ALBUMIN 3.8 g/dL (3.4-5.0); ALKALINE PHOSPHATASE 54 U/L (46-116); ALT (SGPT) 33 U/L (10-68); BILIRUBIN - TOTAL 0.44 mg/dL (0.2-1.3); CALC OSMOLALITY 272 mosm/kg (275-300); CALCIUM 8.9 mg/dL (8.5-10.1); CARBON DIOXIDE 29.4 mmol/L (21.0-32.0); CHLORIDE - SERUM 99 mmol/L (98-107); CREATININE - SERUM 0.9 mg/dL (0.6-1.3); GLUCOSE 115 mg/dL (74-106); POTASSIUM - SERUM 3.4 mmol/L (3.5-5.1); SODIUM 137 mmol/L (136-145); UREA NITROGEN 8 mg/dL (7-18); eGFR NON AFRICAN AMERICAN 90 mL/min (90-120)
[2019-01-15 20:17] LABS: AMYLASE - SERUM 55 U/L (25-115); LIPASE 131 U/L (73-393)
[2019-01-15] MEDS ORDERED: VOLTAREN100 GM TOPICAL (21:22)
[2019-01-15] MEDS ORDERED: MIRALAX17 GM PO (21:22)
[2019-01-15 21:52] VITALS: BP 170/110
== END 2019-01-15 21:52 | disposition home or self-care (01) ==
LOC: D.ER 19:16
PROVIDERS: Emergency Medicine
DX: K59.00 Constipation, unspecified (principal); S39.011A Strain of muscle, fascia and tendon of abdomen, initial encounter; X58.XXXA Exposure to other specified factors, initial encounter; Y93.89 Activity, other specified; Y92.89 Other specified places as the place of occurrence of the external cause

== ENCOUNTER 2019-02-12 14:43 | Emergency (ER) | payer OTHER, MEDICAID ==
[~2019-02-12] VITALS: Ht 185.4 cm; Wt 93.6 kg
[~2019-02-12 14:43] MED LIST changes: +MIRALAX17 GM PO; +VOLTAREN100 GM TOPICAL
[2019-02-12 14:49] VITALS: Ht 185.4 cm; Wt 93.6 kg
[2019-02-12 15:16] LABS: APPEARANCE CLEAR (CLEAR); BILIRUBIN NEGATIVE (NEGATIVE); COLOR YELLOW (YELLOW); GLUCOSE NEGATIVE (NEGATIVE); KETONE NEGATIVE (NEGATIVE); NITRITE NEGATIVE (NEGATIVE); PROTEIN NEGATIVE (NEGATIVE); UROBILINOGEN NORMAL (NORMAL)
[2019-02-12 16:52] VITALS: BP 178/114
== END 2019-02-12 16:58 | disposition home or self-care (01) ==
LOC: D.ER 14:43
PROVIDERS: Family Medicine
DX: M54.16 Radiculopathy, lumbar region (principal); I10 Essential (primary) hypertension; M48.061 Spinal stenosis, lumbar region without neurogenic claudication; E11.9 Type 2 diabetes mellitus without complications; F17.210 Nicotine dependence, cigarettes, uncomplicated

== ENCOUNTER 2019-04-04 06:47 | Emergency (ER) | payer OTHER, MEDICAID ==
[~2019-04-04] VITALS: Ht 185.4 cm; Wt 93.6 kg
[2019-04-04 06:53] VITALS: BP 181/101; Ht 185.4 cm; Wt 93.6 kg
== END 2019-04-04 07:26 | disposition left against medical advice (07) ==
LOC: D.ER 06:47
DX: R05 Cough (principal); Z53.21 Procedure and treatment not carried out due to patient leaving prior to being seen by health care provider

== ENCOUNTER 2019-04-30 08:53 | Inpatient (IN) | payer MEDICARE ==
[~2019-04-30] VITALS: Ht 185.4 cm; Wt 89.1 kg
--- NOTE | 2019-04-30 09:09 | NUR ---
SUPERVISOR OF WAY NOTIFIED OF NEED FOR PSYCH ASSESSMENT AT THIS TIME.
--- NOTE | 2019-04-30 09:30 | NUR ---
ACCORDING TO THE SUICIDE ASSESSMENT THE PATIENT IS A HIGH RISK FOR SUICIDE AND HE REQUIRES A 1:1 OBSERVATION. PROVIDED RESOURCE HANDOUT AND SAFETY PLAN.
--- NOTE | 2019-04-30 09:40 | NUR ---
PSYCH ASSESSMENT COMPLETE. 1:1 SITTER AT BEDSIDE TO ENSURE PT SAFETY.
[2019-04-30 09:55] LABS: CALC OSMOLALITY 269 mosm/kg (275-300); CALCIUM 9.1 mg/dL (8.5-10.1); CARBON DIOXIDE 25.3 mmol/L (21.0-32.0); CHLORIDE - SERUM 99 mmol/L (98-107); CREATININE - SERUM 0.9 mg/dL (0.6-1.3); GLUCOSE 134 mg/dL (74-106); POTASSIUM - SERUM 3.3 mmol/L (3.5-5.1); SODIUM 135 mmol/L (136-145); UREA NITROGEN 8 mg/dL (7-18); eGFR NON AFRICAN AMERICAN 90 mL/min (90-120)
[2019-04-30 10:12] LABS: INR 1.13 (0.85-1.17); PROTIME 14.4 SECONDS (11.6-15.0)
[2019-04-30 10:13] LABS: APTT 29.1 SECONDS (22.8-39.4)
[2019-04-30 10:18] LABS: BASOPHILS 0.2 % (0-2); EOSINOPHILS 0.5 % (0-7); HEMATOCRIT 41.8 % (42.0-54.0); HEMOGLOBIN 15.3 g/dL (13.5-17.5); IMMATURE GRANULOCYTES 0.2 % (0-5); LYMPHOCYTES 13.3 % (15-50); MCH 30.1 pg (26.0-34.0); MCHC 36.6 g/dL (31.0-37.0); MCV 82.3 fL (80.0-100.0); MEAN PLATELET VOLUME 9.4 fL (7.4-10.4); MONOCYTES 8.5 % (2-11); NEUTROPHILS 77.3 % (40-80); RBC 5.08 10x6/uL (4.20-6.10); RDW 13.1 % (11.5-14.5); WBC 6.4 10x3/uL (4.8-10.8)
[2019-04-30 10:21] LABS: PLATELET COUNT 292 10x3/uL (130-400)
[2019-04-30 10:29] LABS: ALBUMIN 3.6 g/dL (3.4-5.0); ALKALINE PHOSPHATASE 51 U/L (46-116); ALT (SGPT) 42 U/L (10-68); BILIRUBIN - TOTAL 0.55 mg/dL (0.2-1.3); CHOL - HDL RATIO 3.9 ratio (2.3-4.9); CHOLESTEROL, TOTAL 138 mg/dL (0-200); CKMB 0.7 U/L (0.0-3.6); CREATINE KINASE 139 UL (21-232); HDL CHOLESTEROL 35 mg/dL (32-96); LDL CHOLESTEROL 94 mg/dL (0-100); LDL-HDL RATIO 2.7 ratio (1.5-3.5); PROTEIN - SERUM 7.5 g/dL (6.4-8.2); TRIGLYCERIDE 45 mg/dL (30-200)
[2019-04-30 10:35] LABS: TROPONIN-I < 0.017 ng/mL (0.000-0.060)
[2019-04-30 15:25] LABS: UDS - AMPHET NEGATIVE QUAL (NEGATIVE); UDS - BARB NEGATIVE QUAL (NEGATIVE); UDS - BENZO NEGATIVE QUAL (NEGATIVE); UDS - COCAINE POSITIVE QUAL (NEGATIVE); UDS - OPIATE NEGATIVE QUAL (NEGATIVE); UDS - PCP NEGATIVE QUAL (NEGATIVE); UDS - THC NEGATIVE QUAL (NEGATIVE)
[2019-04-30 15:27] LABS: APPEARANCE CLEAR (CLEAR); BILIRUBIN NEGATIVE (NEGATIVE); COLOR YELLOW (YELLOW); GLUCOSE NEGATIVE (NEGATIVE); KETONE NEGATIVE (NEGATIVE); NITRITE NEGATIVE (NEGATIVE); PROTEIN NEGATIVE (NEGATIVE); UROBILINOGEN NORMAL (NORMAL)
--- NOTE | 2019-04-30 15:34 | NUR ---
The patient is admitted from the ED from home, he came to the hospital because he said he was having chest pains and then when he got here he said he felt suicidal. "I want to hang myself in the hospital." He contracts for no self harm the patient can ambulate independently. He has no dentures. No scars. He says he has been coughing for a couple days and has a sore throat.
[2019-04-30 15:40] VITALS: BP 163/97; BMI 25.4
[2019-04-30 16:08] LABS: CKMB 0.6 U/L (0.0-3.6); CREATINE KINASE 137 UL (21-232)
[2019-04-30 16:09] LABS: TROPONIN-I < 0.017 ng/mL (0.000-0.060)
[2019-04-30 21:55] VITALS: BP 164/109
--- NOTE | 2019-04-30 22:04 | NUR ---
RECEIVED IN PATIENT ROOM. RESTING IN BED WITH EYES OPEN. CALM AND COOPERATIVE WITH CARE AND ASSESSMENT. ADMITS TO HAVING THOUGHTS OF SUICIDE. STATED HIS PLAN IS TO HANG HIMSELF. CONTRACTED FOR SAFETY. VERBAL CONSENTS TO TREAT RECEIVED FROM PATIENT. REDIRECT AND REORIENT NEEDED. RESTING IN BED WITH EYES CLOSED AT THIS TIME. CONTINUE PLAN OF CARE.
[2019-04-30 22:22] LABS: CKMB 0.5 U/L (0.0-3.6); CREATINE KINASE 114 UL (21-232); TROPONIN-I < 0.017 ng/mL (0.000-0.060)
[2019-05-01 06:28] LABS: BASOPHILS 0.2 % (0-2); EOSINOPHILS 0.5 % (0-7); HEMATOCRIT 41.1 % (42.0-54.0); IMMATURE GRANULOCYTES 0.2 % (0-5); LYMPHOCYTES 16.1 % (15-50); MCH 30.1 pg (26.0-34.0); MCHC 36.5 g/dL (31.0-37.0); MCV 82.4 fL (80.0-100.0); MEAN PLATELET VOLUME 9.1 fL (7.4-10.4); MONOCYTES 6.9 % (2-11); NEUTROPHILS 76.1 % (40-80); PLATELET COUNT 257 10x3/uL (130-400); RBC 4.99 10x6/uL (4.20-6.10); RDW 13.1 % (11.5-14.5); WBC 6.1 10x3/uL (4.8-10.8)
[2019-05-01 06:51] LABS: ALBUMIN 3.3 g/dL (3.4-5.0); ALKALINE PHOSPHATASE 52 U/L (46-116); ALT (SGPT) 38 U/L (10-68); BILIRUBIN - TOTAL 0.46 mg/dL (0.2-1.3); CALC OSMOLALITY 269 mosm/kg (275-300); CALCIUM 9.2 mg/dL (8.5-10.1); CARBON DIOXIDE 26.8 mmol/L (21.0-32.0); CHLORIDE - SERUM 100 mmol/L (98-107); GLUCOSE 160 mg/dL (74-106); POTASSIUM - SERUM 3.4 mmol/L (3.5-5.1); PROTEIN - SERUM 7.4 g/dL (6.4-8.2); SODIUM 134 mmol/L (136-145); UREA NITROGEN 10 mg/dL (7-18); eGFR NON AFRICAN AMERICAN 79 mL/min (90-120)
[2019-05-01 08:00] VITALS: BP 171/88
--- NOTE | 2019-05-01 10:40 | CN ---
PATIENT NAME:MELISSA ISAAC MEDICAL RECORD: [id number] : 51 LOCATION:[id number] ADMIT DATE: 04/30/19 ACCOUNT: [id number] CONSULTING PHYSICIAN: ABIMAEL BONILLA MD REFERRING PHYSICIAN: JARON HULL MD DATE OF CONSULTATION: 04/30/2019 DIAGNOSES: 1. Suicidal ideation. 2. Chest pain. 3. Hypertension. 4. Hyperlipidemia. 5. Snn-gbsqdmj-bwnxsamku diabetes. HISTORY OF PRESENT ILLNESS: This is a gentleman who presents to the hospital with suicidal ideation and states that he wants to hang himself in the hospital, as well for the last week he has had episodes of chest discomfort. Does not have a history of ischemic heart disease. He has a history of hypertension, for which he is on multiple medications and his compliance is questionable on those as well as hyperlipidemia and kdd-glmmhga-nrgdltsja diabetes. His EKG is normal. Troponin is normal. PHYSICAL EXAMINATION: CONSTITUTIONAL/GENERAL APPEARANCE: Well nourished, well developed, appears stated age. EYES: Lids and conjunctivae noninjected. No discharge. No pallor. ENT: Lips within normal limit. No cyanosis. No pallor. NECK: Carotid arteries, bilateral normal upstroke. No bruits. No thrills. No jugular venous pressure or distention. CERVICAL LYMPH NODES: Nontender. Nonenlarged. THYROID: Not enlarged. No nodules. CARDIOVASCULAR: Precordial exam, nondisplaced. No heaves or pericardial thrills. Rate and rhythm, regular. Heart sounds, normal S1, normal S2. No S3, no gallop, no rub. Systolic murmur, not heard. Diastolic murmur, not heard. RESPIRATORY: Respiratory effort, unlabored. Normal curvature. No thoracic deformity. No chest wall tenderness. Percussion, resonant. Auscultation, clear. No wheezes, no rales, no rhonchi. ABDOMEN: Soft, nondistended, nontender. No abdominal pain, no vomiting and normal appetite. MUSCULOSKELETAL: No joint tenderness, normal gait, normal tone. SKIN: Warm and dry. OVERALL IMPRESSION: Suicidal ideation is his main concern at this time. His troponin is normal. At this time would just restart his antihypertensive medications, we can do cardiac workup in the future if his psych issues stabilize. TRANSINT:[id number] Voice Confirmation ID: [id number] DOCUMENT ID: [id number] CONSULT REPORT [id number] MELISSA ISAAC JEFFREY MD at 1040 CC: [id number] DICTATION DATE: 04/30/19 1244 KNOWLEDGE MANAGEMENT CONSULTANT: 04/30/192032 ADM IN [facility] [address] [place] [id number]
[2019-05-01 15:03] VITALS: Ht 185.4 cm; Wt 89.1 kg
[2019-05-01 21:12] VITALS: BP 171/104
--- NOTE | 2019-05-01 22:29 | NUR ---
B.) PT IS ALERT AND ORIENTED TO SELF AND SITUATION. HE IS ABLE TO AMBULATE WITHOUT ASSISTANCE AND MAKE HIS NEEDS KNOWN. HE DENIES SI AT THIS TIME. HE IS PLEASANT WITH STAFF. I.) PROVDIED PM MEDICATIONS. R.) COMPLIANT WITH ALL MEDICATIONS. P.) WILL CONTINUE TO MONITOR.
[2019-05-02 08:30] VITALS: BP 143/98
--- NOTE | 2019-05-02 10:40 | NUR ---
PATIENT LAYING ON THE COUCH WITH HEAD COVERED. PT C/O OF THROAT HURTING AND C/O OF COUGHING. PT IS ALERT AND ORIENTED TO SITUTION. PT IS C/O WITH MEDS, VITALS AND ASSESSMENTS. AMBULATES. CAN MAKE NEEDS KNOWN. DENIES SI. NO BEHAVIORS NOTED. WILL CONT PLAN OF CARE.
[2019-05-02 10:51] VITALS: BP 143/98
--- NOTE | 2019-05-02 13:49 | HP ---
PATIENT: MELISSA ISAAC MEDICAL RECORD: [id number] ACCOUNT: [id number] LOCATION:[facility] : 51 ADMISSION DATE: 04/30/19 PCP: MARGARITO VILLAVICENCIO MD HISTORY AND PHYSICAL EXAMINATION IDENTIFYING DATA: The patient is 64 years old and is admitted to the hospital on a voluntary basis. CHIEF COMPLAINT: Suicidal thoughts. HISTORY OF PRESENT ILLNESS: The patient is well known to me from previous clinical contact. He has a long history of chronic mental illness and recently has been hearing voices telling him to hurt himself or others. He states that he would hurt himself by hanging himself, but does not have any specific thoughts about hurting anyone in particular. He says he is mad at his girlfriend because they have had some sort of conflict that I do not understand and it has made him homeless. He says that he has been taking his medications, but that he has been drinking a 30 pack of beer daily for the past 2 months. He is somewhat embarrassed about this, says that he knows he is not supposed to do this, but has just simply been unable to control himself. PAST MEDICAL HISTORY: Significant for hypertension, chronic obstructive pulmonary disease, and diabetes. PAST PSYCHIATRIC HISTORY: Significant for schizophrenia and alcoholism. FAMILY HISTORY: Unknown dose. ALLERGIES: No known drug allergies. CURRENT MEDICATIONS: Please see the admissions MAR. SOCIAL HISTORY: The patient is an intermittent abuser of alcohol. He is single and has 3 children. 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 MENTAL STATUS EXAMINATION: The patient is awake, alert, and oriented to person, place and somewhat to time and situation. His mood is flat. His affect is constricted. Thought processes are impaired and disorganized. He denies that he would actively seek to harm himself or others. He denies overt psychotic symptoms. ASSETS: Supportive family members. LIABILITIES: Limited insight. DIAGNOSTIC IMPRESSION: AXIS I: Schizophrenia, chronic undifferentiated. Alcohol abuse. AXIS II: None. AXIS III: Hypertension, chronic obstructive pulmonary disease, and diabetes. AXIS IV: Moderate stressors. AXIS V: Global assessment of functioning is 30. PLAN: At the time of discharge, the patient is in good behavioral control with limited insight about his condition. He is tolerating his medicines well. His long-term prognosis is guarded. HISTORY AND PHYSICAL [id number] SUSAN ISAACVELT TRANSINT:[id number] Voice Confirmation ID: [id number] DOCUMENT ID: [id number] JARON HULL MD at 1349 CC: [id number] DICTATION DATE: 05/01/19 1646 DIESEL BUS MECHANIC: 05/01/19 1810 ADM IN [place] [address] [place] [address]
--- NOTE | 2019-05-02 20:40 | NUR ---
PATIENT IS ALERT AND ORIENTED, COMPLIANT WITH MEDS, DENIES SUICIDIAL IDEATIONS. WILL FOLLOW POC
[2019-05-03 02:22] VITALS: BP 137/80
--- NOTE | 2019-05-03 08:00 | NUR ---
REC'D PT LAYING IN BED. PREVIOUS SHIFT REPORTED PT DID NOT SLEEP. PT IS ALERT AND ORIENTED. CAN MAKE NEEDS KNOWN. AMBULATES. COMPLIANT WITH MEDS, VITALS AND ASSESSMENTS. WILL CONT PLAN OF CARE.
--- NOTE | 2019-05-03 11:50 | PN ---
PATIENT:MELISSA ISAAC MEDICAL RECORD: [id number] LOCATION:[facility] ADMISSION DATE: 04/30/19 PROGRESS NOTE DATE OF SERVICE: 05/02/2019 SUBJECTIVE: The patient's case was discussed with staff. He has no new complaint. OBJECTIVE: The patient is in good behavioral control. He is making delusional statements, but he is not grossly disorganized. ASSESSMENT: 1. Schizophrenia. 2. Alcohol abuse. PLAN: Current medicines have been reviewed. I am going to keep him on the Haldol for its antipsychotic effect. He does not require such a large dose of Cogentin in my opinion and I am going to reduce that to 1 mg twice daily. TRANSINT:[id number] Voice Confirmation ID: [id number] DOCUMENT ID: [id number] JARON HULL MD at 1150 CC: [id number] DICTATION DATE: 05/02/19 1615 BIOCHEMISTRY TEACHER: 05/02/19 2153 ADM IN [place] [id number] [place] [id number]
--- NOTE | 2019-05-03 18:50 | NUR ---
LATE ENTRY: PATIENT OT1SSGNU THIS SHIFT AND SLEPT ON THE COUCH MOST OF THE SHIFT. STAFF ATTEMPTED TO ENCOURAGE PATIENT TO JOIN GROUPS AND PATIENT REFUSED. WILL CONT TO ENCOURAGE PATIENT TO BE MORE SOCIAL WITH STAFF.
--- NOTE | 2019-05-03 21:20 | NUR ---
PATIENT ISN'T CONFUSED, HAVING A HARD TIME SLEEPING, CAN MAKE ALL NEEDS KNOWN, MONITOR ON AT SINUS RHYTHM. COMPLIANT WITH MEDS. WILL FOLLOW POC
[2019-05-04 01:44] VITALS: BP 186/112
--- NOTE | 2019-05-04 08:45 | NUR ---
PATIENT WANTED TO LAY ON COUCH TO SLEEP. STAFF ATTEMPTED TO ENCOURAGE PT TO TRY NOT TO SLEEP ON THE COUCH ALL DAY. PT BECAME UPSET STATING "I'M A GROWN MAN. HELL" PT WENT BACK TO HIS ROOM AND LAID IN THE BED. A STAFF MEMEBER ATTEMPED TO TALK TO PT AND GET TO COME BACK TO THE DINING AREA. PT BECAME UPSET STATING "I'M A GROWN MAN. I DONT NEED ANYONE TO TALK TO ME LIKE IM A CHILD. I GOT A BAD BACK. I REALLY CANT SIT UP ALL DAY LIKE THE REST OF THESE PATIENTS." NURSE SPOKE WITH PT AND ENCOURAGED HIM TO STAY UP FOR A FEW HOURS AND THEN TRY LAYING DOWN FOR A LITTLE WHILE. PT AGREED AND CAME BACK TO THE DAY AREA WITH STAFF. WILL CONT TO MONITOR PTS BEHAVIOR. WILL CONT PLAN OF CARE.
--- NOTE | 2019-05-04 11:20 | NUR ---
PAGEPromise JEFFERS IN REGARDS TO TELEMETRY. SINUS RHTHYM 74. AWAITING CALLBACK.
[2019-05-04 11:27] VITALS: BP 157/100
--- NOTE | 2019-05-04 11:30 | NUR ---
SPOKE WITH DR. JEFFERS. NEW ORDER: REMOVE TELEMETRY.
--- NOTE | 2019-05-04 13:20 | PN ---
PATIENT:MELISSA ISAAC MEDICAL RECORD: [id number] LOCATION:[facility] ADMISSION DATE: 04/30/19 PROGRESS NOTE DATE OF SERVICE: 05/03/2019 SUBJECTIVE: The patient's case was discussed with staff. He has no new complaint. OBJECTIVE: The patient is feeling better. He has limited insight about his situation. He has no evidence of alcohol withdrawal. ASSESSMENT: 1. Schizophrenia. 2. Alcohol abuse. PLAN: Current medicines have been reviewed and will be maintained. His long-term prognosis is guarded. TRANSINT:[id number] Voice Confirmation ID: [id number] DOCUMENT ID: [id number] JARON HULL MD at 1320 CC: [id number] DICTATION DATE: 05/03/191215 CIRCULATION CLERK: 05/03/19 [address] [facility] [address] [place] [address]
[2019-05-04 20:00] VITALS: BP 153/95
--- NOTE | 2019-05-04 22:06 | NUR ---
RECEIVED IN PATIENT ROOM. SITTING ON SIDE OF BED AND EATING SNACK. CALM AND COOPERATIVE WITH CARE AND ASSESSMENT. NO AGGRESSIVE BEHAVIOR. DENIES THOUGHTS OF SELF HARM. REDIRECT AND REORIENT NEEDED. RESTING IN BED WITH EYES CLOSED AT THIS TIME. CONTINUE PLAN OF CARE.
[2019-05-05 10:55] VITALS: BP 150/91
--- NOTE | 2019-05-05 13:00 | NUR ---
PATIENT IS AWAKE AND ALERT. CALM AND COOPERATIVE WITH ASSESSMENT AND CARE. COMPLIANT WITH MEDICATIONS. DENIES SUICIDAL IDEATIONS. MONITOR FOR SAFETY AND CONTINUE POC.
--- NOTE | 2019-05-05 15:13 | PN ---
PATIENT:MELISSA ISAAC MEDICAL RECORD: [id number] LOCATION:[facility] ADMISSION DATE: 04/30/19 PROGRESS NOTE DATE OF SERVICE: 05/04/2019 SUBJECTIVE: The patient's case was discussed with staff. He has no new complaint. OBJECTIVE: The patient is in good behavioral control. He has poor insight about his situation. ASSESSMENT: 1. Schizophrenia. 2. Alcohol abuse. PLAN: The patient denies that he wants to hurt himself, but when asked about this, he pauses for an uncomfortable number of seconds and then says no. He has been isolated and withdrawn. I am not sure about the reasons for this, but combining that with the way he is answering a question about wanting to hurt himself is a little distressing. He is not showing any evidence of alcohol withdrawal. I am going to start him on an antidepressant. I have spoken with him again about the importance of medication compliance and not abusing drugs or alcohol and he assures me that he is not going to do so again. With all due respect I have heard that from him before and I am sure he is sincere in saying it at that time, but weeks or months later when he is out of the hospital and unsupervised circumstances change. He insists that the cocaine in his urine is a mistake that he has not used any cocaine. He insists that he does not need or require any kind of substance abuse treatment either on an inpatient or outpatient basis. TRANSINT:[id number] Voice Confirmation ID: [id number] DOCUMENT ID: [id number] JARON HULL MD at 1513 CC: [id number] DICTATION DATE: 05/04/19 1352 MIXER OPERATOR: 05/04/19 2316 ADM IN [facility] [address] [place] [address]
--- NOTE | 2019-05-05 16:19 | NUR ---
Nutrition Follow-up: Diet: Diabetic PO intake: 85-100% x all meals last 9 meals recorded Last BM: 05/03/19. WT: 197# (05/04/19); Admit wt: 193# (04/30/19) Meds reviewed. Labs noted: POC Glu 153mg/dL. Continue current nutrition regimen. RD following.
[2019-05-05 20:00] VITALS: BP 182/98
--- NOTE | 2019-05-05 22:28 | NUR ---
RECEIVED IN PATIENT ROOM. GETTING READY FOR BED. SHOWERED. CALM AND COOPERATIVE WITH CARE AND ASSESSMENT. DENIES THOUGHTS OF SELF HARM. REDIRECT AND REORIENT NEEDED. RESTING IN BED WITH EYES CLOSED AT THIS TIME. CONTINUE PLAN OF CARE.
[2019-05-06 08:00] VITALS: BP 122/89
--- NOTE | 2019-05-06 11:41 | NUR ---
RECEIVED PATIENT IN D/R FOR B'FAST, APPETITE GOOD, CALM, PLEASANT, NO SUICIDAL STATEMENTS MADE, MED COMPLIANT, COOPERATIVE, NO ADVERSE BEHAVIORS. CONT POC DIRECTED.
--- NOTE | 2019-05-06 13:51 | PN ---
PATIENT:MELISSA ISAAC MEDICAL RECORD: [id number] LOCATION:[facility] ADMISSION DATE: 04/30/19 PROGRESS NOTE DATE OF SERVICE: 05/05/2019 SUBJECTIVE: The patient's case was discussed with staff. He has no new complaint. OBJECTIVE: The patient denies intent to harm himself or others. He is bizarre and disorganized. ASSESSMENT: 1. Schizophrenia. 2. Alcohol use disorder. 3. Cocaine use disorder. PLAN: The patient is going to be given a low dose of Haldol decanoate to ensure compliance. He also is homeless and efforts will be made to find him appropriate housing as well as followup. TRANSINT:[id number] Voice Confirmation ID: [id number] DOCUMENT ID: [id number] JARON HULL MD at 1351 CC: [id number] DICTATION DATE: 05/05/19 1652 TEACHER DRAMATICS: 05/06/19 0131 ADM IN [facility] [address] [id number]
[2019-05-06 20:35] VITALS: BP 149/80
--- NOTE | 2019-05-07 00:09 | NUR ---
RECEIVED IN DAYROOM. WATCHING TV. CALM AND COOPERATIVE WITH CARE AND ASSESSMENT. DENIES SI. REDIRECT AND REORIENT NEEDED. RESTING IN BED WITH EYES CLOSED AT THIS TIME. CONTINUE PLAN OF CARE.
[2019-05-07 09:11] VITALS: BP 163/76
--- NOTE | 2019-05-07 10:12 | PN ---
PATIENT:MELISSA ISAAC MEDICAL RECORD: [id number] LOCATION:[facility] ADMISSION DATE: 04/30/19 PROGRESS NOTE DATE OF SERVICE: 05/06/2019 SUBJECTIVE: The patient's case was discussed with staff. He has no new complaint. OBJECTIVE: The patient is calmer today. He is very anxious to leave, but agrees to stay until we can find him an appropriate housing situation. ASSESSMENT: Schizophrenia. PLAN: The patient will have his Cogentin increased since I have given him a fairly significant shot of Haldol. TRANSINT:[id number] Voice Confirmation ID: [id number] DOCUMENT ID: [id number] JARON HULL MD at 1012 CC: [id number] DICTATION DATE: 05/06/19 1554 DIETITIAN TEACHER: 05/06/19 2331 ADM IN [facility] [address] [place] [address]
[2019-05-07] MEDS ORDERED: ZOLOFT50 MG PO (12:01)
[2019-05-07] MEDS ORDERED: HALDOL DECAN50 MG/ML IM (12:01)
[2019-05-07] MEDS ORDERED: VITAMIN D5000 UNIT PO (12:02)
[2019-05-07] MEDS ORDERED: PROTONIX40 MG PO (12:02)
--- NOTE | 2019-05-07 16:05 | NUR ---
PATIENT CALM AND COOPERATIVE. COMPLIANT WITH MEDICATIONS, CONFUSED, NO BEHAVIORAL ISSUES NOTED. DENIES SUICIDAL IDEATIONS. CONT POC DIRECTED.
[2019-05-07 22:50] VITALS: BP 135/99
--- NOTE | 2019-05-07 23:15 | NUR ---
REC'D PATIENT LAYING ON THE COUCH. ORIENTED X4. RELATES HE IS HERE BECAUSE HE SAID HE WANTED TO HURT HIMSELF. DENIES SI AT THIS TIME. INTERACTS WITH STAFF. ADMINISTER MEDS AND MONITOR COMPLIANCE. OBTAIN VERBAL NO HARM CONTRACT. MED COMPLIANT. CONTRACTS VERBALLY FOR NO SELF HARM. CONTINUE POC AND PROVIDE SAFE ENVIRONMENT.
--- NOTE | 2019-05-08 08:00 | NUR ---
PT SITTING AND EATING BREAKFAST AT THIS TIME. NO ACUTE DISTRESS NOTED. PT CAN MAKE NEEDS KNOWN. PT IS ALERT AND ORIENTED TO PERSON, PLACE AND TIME. PT CAN AMBULATE. PT DENIES SI AT THIS TIME. PT COMPLIANT WITH STAFF, MEDS AND VITALS. WILL CONT PLAN OF CARE.
[2019-05-08 09:26] VITALS: BP 116/72
--- NOTE | 2019-05-08 11:25 | NUR ---
Evonjimmie Pat informed me that the patient can be d/c'd. Faxed d/c order and MAR Dr. Sanchez. Provided a med list and Dr. Sanchez's phone number for the patient. The meds are escripted to [facility] [address]. Patient's personal belingings returned to the patient.
--- NOTE | 2019-05-08 11:28 | NUR ---
Called the patient's nephew and he will pick him up at 1:30 pm today. Will let the patient be aware.
--- NOTE | 2019-05-08 11:44 | PN ---
PATIENT:MELISSA ISAAC MEDICAL RECORD: [id number] LOCATION:[facility] ADMISSION DATE: 04/30/19 PROGRESS NOTE DATE OF SERVICE: 05/07/2019 SUBJECTIVE: The patient's case was discussed with staff. He has no new complaint. OBJECTIVE: The patient denies intent to harm himself or others. He has tolerated his Haldol Decanoate shot reasonably well. He is showing no evidence of alcohol withdrawal. ASSESSMENT: 1. Schizophrenia. 2. Alcohol abuse. 3. Cocaine abuse. PLAN: The patient will be transitioned out of the hospital tomorrow. His current symptoms are under control as they are today. Followup will be with his primary care physician and the [facility]. TRANSINT:[id number] Voice Confirmation ID: [id number] DOCUMENT ID: [id number] JARON HULL MD at 1144 CC: [id number] DICTATION DATE: 05/07/19 171 DEVELOPMENTAL TRAINING COUNSELOR: 05/08/19 0202 ADM IN [address] [place] [address]
--- NOTE | 2019-05-08 13:44 | NUR ---
PATIENT DISCHARGED WITH FAMILY AT THIS TIME. PT CONTRACTS NO HARM. PT BELONGINGS SENT WITH PT AND FAMILY. PAPERWORK SENT TO DR. DEL REAL. PT WILL MAKE OWN APPOINTMENT FOR FOLLOWUP. STABLE AT TIME OF DISCHARGE.
--- NOTE | 2019-05-09 15:05 | PN ---
PATIENT:MELISSA ISAAC MEDICAL RECORD: [id number] LOCATION:[facility] ADMISSION DATE: 04/30/19 PROGRESS NOTE DATE OF SERVICE: 05/08/2019 SUBJECTIVE: The patient's case was discussed with staff. He has no new complaint. OBJECTIVE: The patient is in good behavioral control with poor insight. He is tolerating his medicines well. ASSESSMENT: 1. Schizophrenia. 2. Alcohol abuse. 3. Cocaine abuse. PLAN: The patient will be transitioned out of the hospital today. Followup will be with his primary care physician and the outpatient [facility]. He does not want to go to substance abuse treatment, but he has been given referral to outpatient therapy anyway. I think his prognosis is entirely contingent upon medication compliance and substance abuse abstinence. TRANSINT:[id number] Voice Confirmation ID: [id number] DOCUMENT ID: [id number] JARON HULL MD at 1505 CC: [id number] DICTATION DATE: 05/08/191835 MULTIPLE SLIDE OPERATOR: 05/08/192021 DIS IN 05/08/19 [facility] [address] [place] [address]
--- NOTE | 2019-05-16 14:14 | DS ---
PATIENT:MELISSA ISAAC :51 MEDICAL RECORD: [id number] DISCHARGE SUMMARY ADMISSION DATE: 04/30/19 DISCHARGE DATE: 05/08/19 IDENTIFYING DATA: The patient is 74 years old and he is admitted to the hospital on a voluntary basis because of suicidal thoughts. The patient is known to me from previous clinical contact and he has a long history of chronic mental illness. Recently, he has been hearing voices telling him to hurt himself or others. He states that he would hurt himself by hanging himself, but does not have any specific plans to hurt others at this time. He is angry because his girlfriend had some sort of a conflict with him and at the time of admission, he is homeless. He says that he has been taking his medicines, but he has been drinking a 30-pack of beer a day for the past 2 months and he also has cocaine in his urine at the time of admission. HOSPITAL COURSE: The patient was admitted to the hospital and fully evaluated from both a medical, psychological, and social standpoint. He was treated with antipsychotic and mood stabilizing medications. He was observed for evidence of alcohol withdrawal. director of women's services was contacted and appropriate assistance was obtained for him. DISCHARGE DIAGNOSES: AXIS I: 1. Schizophrenia, chronic undifferentiated. 2. Polysubstance abuse. AXIS II: None. AXIS III: Hypertension, chronic obstructive pulmonary disease, and diabetes. AXIS IV: Moderate. AXIS V: Global assessment of functioning is 40. PLAN: At the time of discharge, the patient was in good behavioral control and had no evidence of acute dangerousness to himself or others. He had no evidence of substance abuse withdrawal. He was referred to outpatient mental health and outpatient substance abuse treatment. His long-term prognosis is guarded and will be largely contingent upon medication management and consistent outpatient followups along with an abstinence from drugs and alcohol. TRANSINT:[id number] Voice Confirmation ID: [id number] DOCUMENT ID: [id number] JARON HULL MD at 1414 CC: [id number] DICTATION DATE: 05/15/19 1528 HAND WRAPPER OPERATOR: 05/16/19 0745 DIS IN 05/08/19 [id number] [place] [address]
== END 2019-05-08 13:40 | disposition home or self-care (01) | DRG 885 ==
LOC: D.ER 08:53 → D.PSYCH 09:44
PROVIDERS: Family Medicine; ADMIT Psychiatry & Neurology Psychiatry; ATTEND Psychiatry & Neurology Psychiatry
DX: F20.9 Schizophrenia, unspecified (principal); R45.851 Suicidal ideations; F10.10 Alcohol abuse, uncomplicated; I10 Essential (primary) hypertension; J44.9 Chronic obstructive pulmonary disease, unspecified; E11.9 Type 2 diabetes mellitus without complications; E78.5 Hyperlipidemia, unspecified; K59.00 Constipation, unspecified; N40.0 Benign prostatic hyperplasia without lower urinary tract symptoms; R05 Cough; F32.9 Major depressive disorder, single episode, unspecified; R07.9 Chest pain, unspecified

== ENCOUNTER 2019-06-08 15:24 | Emergency (ER) | payer OTHER, MEDICAID ==
[~2019-06-08] VITALS: Ht 185.4 cm; Wt 90.0 kg
[~2019-06-08 15:24] MED LIST changes: +HALDOL DECAN50 MG/ML IM; +ZOLOFT50 MG PO
[2019-06-08 15:27] VITALS: Ht 185.4 cm; Wt 90.0 kg
[2019-06-08] MEDS ORDERED: MECLIZINE HCL25 MG PO (17:04)
[2019-06-08 17:09] VITALS: BP 132/89
== END 2019-06-08 17:09 | disposition home or self-care (01) ==
LOC: D.ER 15:24
DX: S01.81XA Laceration without foreign body of other part of head, initial encounter (principal); W19.XXXA Unspecified fall, initial encounter; Y93.9 Activity, unspecified; Y92.9 Unspecified place or not applicable; I10 Essential (primary) hypertension; J44.9 Chronic obstructive pulmonary disease, unspecified; E11.9 Type 2 diabetes mellitus without complications; Z72.0 Tobacco use

== ENCOUNTER 2019-08-15 12:23 | Inpatient (IN) | payer MEDICARE ==
[~2019-08-15 12:23] MED LIST changes: +MECLIZINE HCL25 MG PO
[2019-08-15 12:45] LABS: BILIRUBIN NEGATIVE (NEGATIVE); GLUCOSE NEGATIVE (NEGATIVE); KETONE NEGATIVE (NEGATIVE); NITRITE NEGATIVE (NEGATIVE); SPECIFIC GRAVITY 1.005 (1.005-1.020); UROBILINOGEN NORMAL (NORMAL)
[2019-08-15 12:53] LABS: UDS - AMPHET NEGATIVE QUAL (NEGATIVE); UDS - BARB NEGATIVE QUAL (NEGATIVE); UDS - BENZO NEGATIVE QUAL (NEGATIVE); UDS - COCAINE POSITIVE QUAL (NEGATIVE); UDS - OPIATE NEGATIVE QUAL (NEGATIVE); UDS - PCP NEGATIVE QUAL (NEGATIVE); UDS - THC NEGATIVE QUAL (NEGATIVE)
[2019-08-15 12:59] LABS: BASOPHILS 0.3 % (0-2); EOSINOPHILS 0.5 % (0-7); HEMATOCRIT 44.8 % (42.0-54.0); HEMOGLOBIN 15.1 g/dL (13.5-17.5); IMMATURE GRANULOCYTES 0.3 % (0-5); LYMPHOCYTES 8.8 % (15-50); MCH 28.8 pg (26.0-34.0); MCHC 33.7 g/dL (31.0-37.0); MCV 85.3 fL (80.0-100.0); MEAN PLATELET VOLUME 8.9 fL (7.4-10.4); MONOCYTES 4.8 % (2-11); NEUTROPHILS 85.3 % (40-80); PLATELET COUNT 275 10x3/uL (130-400); RBC 5.25 10x6/uL (4.20-6.10); RDW 14.1 % (11.5-14.5); WBC 6.6 10x3/uL (4.8-10.8)
--- NOTE | 2019-08-15 13:00 | NUR ---
LUNCH SERVED TO PTIvan CARDOSO. 100%
[2019-08-15 13:22] LABS: ANION GAP 11.3 mmol/L (8-16); CALCIUM 9.6 mg/dL (8.5-10.1); CARBON DIOXIDE 29.2 mmol/L (21.0-32.0); CREATININE - SERUM 1.1 mg/dL (0.6-1.3); POTASSIUM - SERUM 3.5 mmol/L (3.5-5.1)
[2019-08-15 13:28] LABS: ALBUMIN 3.5 g/dL (3.4-5.0); BILIRUBIN - TOTAL 0.33 mg/dL (0.2-1.3); PROTEIN - SERUM 8.1 g/dL (6.4-8.2)
--- NOTE | 2019-08-15 16:20 | NUR ---
The patient is here on senior living, he is sniffing and has a runny nose. He says he has been sick, his temp is 98.3, he did test positive for cocaine. He admits to feeling suicidal and depressed. Right now he is laying on the couch, but answers questions as needed. He is a full code. No new sores on his body, but he has two small scars on his right lower leg.
[2019-08-15 16:29] VITALS: BP 153/84; BMI 22.2
[2019-08-15 20:00] VITALS: BP 155/87
--- NOTE | 2019-08-16 03:09 | NUR ---
B) Patient is alert and oriented to person and place, calm and cooperative this shift, I) Administered scheduled medications as ordered,monitored for safety R) Medication compliant, sleeping quietly now, P) Continue plan of care.
[2019-08-16 06:37] LABS: LDL-HDL RATIO 1.6 ratio (1.5-3.5); THYROID STIMULATING HORMONE 7.13 uIU/mL (0.36-3.74)
[2019-08-16 09:00] VITALS: BP 145/89
[2019-08-16 11:10] VITALS: BP 145/77
[2019-08-16 11:16] VITALS: Wt 78.6 kg
--- NOTE | 2019-08-16 16:44 | NUR ---
ALERT, CALM, COOPERATIVE, QUITE DEMANDING, ASKING FOR ICE CREAM AND "PAIN PILLS". COMPLIANT WITH MEDS, BUT QUESTIONS THE NEED FOR THE MEDICATIONS. CONT POC DIRECTED.
[2019-08-16 20:00] VITALS: BP 171/101
--- NOTE | 2019-08-16 21:54 | NUR ---
B.) PT IS ALERT AND ORIENTED X4. HE IS DEMANDING AT TIMES. HE IS COOPERATIVE WITH STAFF. HE IS RECEIVED IN THE DAYROOM RESTING ON THE COUCH. I.) PROVIDED PM MEDICATIONS. REDIRECT IF NEEDED. R.) COMPLIANT WITH ALL MEDICATIONS. EASY TO REDIRECT. P.) WILL CONTINUE TO MONITOR.
[2019-08-17 09:58] VITALS: BP 157/91
[2019-08-17 11:05] VITALS: BP 157/91
--- NOTE | 2019-08-17 15:38 | NUR ---
ALERT, CALM, COOPERATIVE, CONFUSED. FREQUENTLY DEMANDS SNACKS, FER, CIGARETTES, ETC. PT. DECLINED A NICOTINE PATCH. MEDS ADMIN PER ORDERS WITH COMPLETE MED COMPLIANCE NOTED. CONTINUE PLAN OF CARE OUTLINED.
--- NOTE | 2019-08-17 19:02 | NUR ---
YESTERDAY, PATIENT WAS OVERHEARD TELLING HIS NEPHEW THAT HE WAS HERE AT THE HOSPITAL TO GET TREATED FOR "THE VIRUS". TODAY, FAMILY CALLED AND ASKED IF PATIENT HAD BEEN TESTED FOR COVID-19.
[2019-08-17 20:00] VITALS: BP 164/100
--- NOTE | 2019-08-17 21:02 | NUR ---
B.) PT IS ALERT AND ORIENTED TO SELF ONLY. HE HAS POOR INSIGHT INTO HIS SITUATION. HE STATES "IM AT MY FRIENDS HOUSE WAITING ON SOMEONE TO BRING ME SOME BEER." HE IS RECEIVED IN THE DAYROOM ON THE COUCH. HE IS CALM AND COOPERATIVE WITH STAFF AND PLEASANT WITH PEERS. I.) PROVIDED PM MEDICATIONS. REDIRECT OFTEN. R.) COMPLIANT WITH ALL MEDICATIONS. EASY TO REDIRECT AT TIMES. P.) WILL CONTINUE TO MONITOR.
--- NOTE | 2019-08-18 08:30 | NUR ---
RECEIVED IN HALLWAY OUTSIDE OF NURSES STATION. CALM AND COOPERATIVE WITH CARE AND ASSESSMENT. CONFUSED. DENIES SI. REDIRECT AND REORIENT NEEDED. EATING BREAKFAST AT THIS TIME. CONTINUE PLAN OF CARE.
[2019-08-18 08:42] VITALS: BP 132/72
--- NOTE | 2019-08-18 14:54 | PSY ---
PATIENT NAME:MELISSA ISAAC MEDICAL RECORD: [id number] : 51 LOCATION:[facility] ADMISSION DATE: 08/15/19 ACCOUNT: [id number] PSYCHIATRIC EVALUATION DATE OF EVALUATION: 08/16/19 IDENTIFYING DATA: The patient is a 64-year-old male who was admitted to the hospital on a voluntary basis. CHIEF COMPLAINT: Suicidal thoughts. HISTORY OF PRESENT ILLNESS: The patient is well known from previous clinical contact. The patient was last here in April of 2019 for complaint of suicidal ideation. The patient has a long history of chronic mental health and was hearing voices. The patient had been drinking per his report. The patient denied a current plan of how to kill himself and states that his last drink was around 8:00 a.m. yesterday morning. The patient reports that he has been taking his medications, but also has increased his alcohol intake. PAST MEDICAL HISTORY: Significant for hypertension, COPD and diabetes. PAST PSYCHIATRIC HISTORY: Significant for schizophrenia, schizoaffective and alcoholism. FAMILY HISTORY: Unknown. ALLERGIES: ACETAMINOPHEN AND ORANGE JUICE. CURRENT MEDICATIONS: Meclizine, valsartan, Cogentin, hydrochlorothiazide 12.5, folic acid, Haldol decanoate 50 mg, Zoloft 50 mg, Protonix 40 mg, vitamin D3, MiraLax. Currently, the patient is reporting to take Prazosin, Lipitor and Coreg per the ER. SOCIAL HISTORY: The patient is an intermittent abuser of alcohol. He is single and has 3 children. 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 MENTAL STATUS EXAM: The patient's general appearance is appropriate. His orientation is alert to person, place, time and situation. His speech is slow, soft, low tone. His associations are loose. His thought processes are impaired and disorganized. He denies overt psychotic symptoms. The patient's mood appears to be anxious, depressed, easily agitated. Affect is narrow in range, flat. Negative for psychomotor retardation or agitation. Impulsivity is high. Assets are supportive family members. Liabilities are limited insight. Psychosocial stressors include family, financial. DIAGNOSTIC IMPRESSION: AXIS I: Schizophrenia, chronic undifferentiated. Alcohol use disorder. AXIS II: None. AXIS III: Hypertensive, chronic obstructive pulmonary disease, diabetes. AXIS IV: Moderate stressors. AXIS V: Global assessment of functioning is 30. PLAN: To perform a comprehensive medical, mental psychosocial evaluation. Plan will be to stabilize his mood and thoughts. He will be treated with both mood stabilizing and thought stabilizing medications and will strive to keep the patient safe from harming himself. Dictated By: Laurence Stone APN I have interviewed/examined the above patient and agree with these documented findings. TRANSINT:[id number] Voice Confirmation ID: [id number] DOCUMENT ID: [id number] Dictated By: LAURENCE STONE I have interviewed/examined the above patient and agree with these documented findings. JARON HULL MD at 1454 at 1403 CC: [id number] DICTATION DATE: 08/16/19 1430 LEAD NITRATE PROCESSOR: 08/16/19 1512 ADM IN [facility] [address] [id number]
--- NOTE | 2019-08-18 14:54 | PN ---
PATIENT:MELISSA ISAAC MEDICAL RECORD: [id number] LOCATION:[facility] ADMISSION DATE: 08/15/19 PROGRESS NOTE DATE OF SERVICE: 08/17/2019 SUBJECTIVE: The patient's case was discussed with staff. The patient states that he is having some back pain and would like some medication. The patient has some suicide ideation, but denies any plan. OBJECTIVE: The patient's general appearance is appropriate. He is oriented to person, place, time and situation. His speech is soft, low tone, low volume. Associations are loose. Eye contact is fair. He is easily distracted. His mood is depressed and anxious. Affect is flat, narrow in range. No abnormal movements noted. His anxiety is moderate. Memory is poor for remote events. The patient does appear to be attending to some auditory hallucinations. His impulsivity is high. ASSESSMENT: No change in diagnosis. PLAN: We will continue to monitor his tolerance to medications, stabilizing his mood and thought, and keeping him safe from himself. Dictated By: Laurence Stone APN I have interviewed/examined the above patient and agree with these documented findings. TRANSINT:[id number] Voice Confirmation ID: [id number] DOCUMENT ID: [id number] JARON HULL MD at 1454 at 1403 CC: [id number] DICTATION DATE: 08/17/19 1431 CRIME PREVENTION WORKER: 08/17/19 1647 ADM IN [facility] [address] [place] [address]
[2019-08-18 19:58] VITALS: BP 163/97
--- NOTE | 2019-08-18 19:58 | NUR ---
RECEIVED IN DAYROOM. LAYING QUIETLY IN THE SOFA. CALM AND COOPERATIVE WITH CARE AND ASSESSMENT. NO STSTAEMENTS OF SELF HARM MADE THIS EVENING. CALM AND COOPERATIVE WITH CARE AND ASSESSMENT. ENCOURAGE TO EXPRESS NEEDS. CONTINUES TO REST QUIETLY ON SOFA. CONTINUE PLAN OF CARE.
[2019-08-19 06:08] LABS: RAPID PLASMA REAGIN Non Reactive (Non Reactive)
[2019-08-19 08:43] VITALS: BP 133/85
--- NOTE | 2019-08-19 09:30 | NUR ---
RECEIVED IN HALLWAY OUTSIDE OF NURSES STATION. DEPRESSED. ISOLATES SELF FROM OTHERS. FLAT AFFECT. BECOMES VERBALLY AGGRESSIVE WITH REDIRECTION. DENIES SUICIDAL IDEATION. SLEEPING IN DAYROOM AT THIS TIME. CONTINUE PLAN OF CARE.
--- NOTE | 2019-08-19 12:00 | NUR ---
PATIENT AGITATED AND ARGUING WITH STAFF ABOUT NOT BEING ABLE TO GO OUTSIDE AND SMOKE.
--- NOTE | 2019-08-19 13:01 | PN ---
PATIENT:MELISSA ISAAC MEDICAL RECORD: [id number] LOCATION:[facility] ADMISSION DATE: 08/15/19 PROGRESS NOTE DATE OF SERVICE: 08/18/2019 SUBJECTIVE: The patient's case was discussed with staff. He has no new complaint. OBJECTIVE: The patient is in good behavioral control. He has poor insight about his situation. He generally tolerates his medicines well. He has not been aggressive. ASSESSMENT: Schizophrenia. PLAN: Current medicines have been reviewed. I am going to restart him on Haldol decanoate. TRANSINT:[id number] Voice Confirmation ID: [id number] DOCUMENT ID: [id number] JARON HULL MD at 1301 CC: [id number] DICTATION DATE: 08/18/19 1616 INCIDENT RESPONSE COORDINATOR: 08/18/19 1736 ADM IN [address] [place] [address]
--- NOTE | 2019-08-19 17:47 | NUR ---
PATIENT HAS NOT PARTICPATED IN GROUPS TODAY. ISOLATES HIMSELF AND SLEEPS THROUGHOUT THE DAY.
[2019-08-19 20:00] VITALS: BP 112/54
--- NOTE | 2019-08-19 20:13 | NUR ---
RECEIVED IN DAYROOM. LAYING ON QUIETLY ON SOFA. CALM AND COOPERATIVE WITH CARE AND ASSESSMENT. NO STATEMENTS OF SELF HARM MADE. ENCOURAGE TO EXPRESS NEEDS. RESTING IN BED WITH EYES CLOSED. CONTINUE PLAN OF CARE
--- NOTE | 2019-08-20 09:15 | NUR ---
RECEIVED IN HALLWAY OUTSIDE OF NURSES STATION. CALM AND COOPERATIVE WITH CARE AND ASSESSMENT. DEPRESSED. FLAT AFFECT. ISOLATES HIMSELF FROM OTHER PATIENTS. REDIRECT AND REORIENT NEEDED. EATING BREAKFAST AT THIS TIME. CONTINUE PLAN OF CARE.
[2019-08-20 10:47] VITALS: BP 153/74
--- NOTE | 2019-08-20 10:50 | PN ---
PATIENT:MELISSA ISAAC MEDICAL RECORD: [id number] LOCATION:[facility] ADMISSION DATE: 08/15/19 PROGRESS NOTE DATE OF SERVICE: 08/19/2019 SUBJECTIVE: The patient's case was discussed with staff. He has no new complaint. OBJECTIVE: The patient has been in good behavioral control. He has had some paranoid thoughts, but no aggressive behavior. ASSESSMENT: Schizophrenia. PLAN: Current medicines have been reviewed and will be maintained. Long-term prognosis is guarded. TRANSINT:[id number] Voice Confirmation ID: [id number] DOCUMENT ID: [id number] JARON HULL MD at 1050 CC: [id number] DICTATION DATE: 08/19/19 1336 DRILLING RIG OPERATOR: 08/19/19 1745 ADM IN [id number] [place] [address]
--- NOTE | 2019-08-20 18:14 | NUR ---
PT WAS WALKING AROUND EARLIER ASKIN WHERE HIS WALLET AND CIGGS WERE. HE STATED I LEFT THEM ON THE COUCH BEFORE I FELL ASLEEP AND NO I CANT FIND THEM. PT IS PARANOID STATING EVERYONE IN HERE OWED HIM MONEY FOR SOME KIND OF DEAL. ATTEMPT TO REDIRECT. PT COVERS WTIH HUMOR. WILL CONT TO MONITOR.
--- NOTE | 2019-08-20 22:03 | NUR ---
B.) PT IS ALERT AND ORIENTED TO SELF ONLY. HE HAS POOR INSIGHT INTO HIS SITUATION. HE WANDERS AIMLESSLY AT TIMES. HE IS SELF ISOLATING, WITHDRAWN AND HAS A FLAT AFFECT. HE IS DEMANDING AND INTRUSIVE WITH STAFF. I.) PROVIDED PM MEDICATIONS PRESCRIBED. REDIRECT OFTEN. R.) COMPLIANT WITH ALL MEDICATIONS. DIFFICULT TO REDIRECT AT TIMES. P.) WILL CONTINUE TO MONITOR.
[2019-08-20 23:41] VITALS: BP 142/92
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
[2019-08-21 13:18] VITALS: BP 129/88
--- NOTE | 2019-08-21 14:15 | NUR ---
Nutrition Follow-up: Eating well. Ate 100% x 3 meals yesterday. Diet: Diabetic, Double Portions PO intake: 88% avg x 9 meals Wt: 170# (08/16); 168# (08/14) Last BM: 08/19 Meds noted: HCTZ, Folate, vitamin D, Protonix -Encourage PO intake and honor food preferences within diet restrictions. -Monitor wt. -RD following.
--- NOTE | 2019-08-21 15:31 | NUR ---
PT IS ALERT AND ORIENTED TO SELF ONLY. PT HAS POOR INSIGHT INTO SITUATION. PT IS RESTLESS, CONTS TO TALK ABOUT GOING TO GET A SMOKE AND TRYING TO OPEN THE WINDOWS TO LEAVE. ATTEMPT TO REDIRECT. PT IS WITHDRAWN AND HAS A FLAT AFFECT. HE CAN BE DEMANDING WITH THE STAFF. COMPLIANT WITH MED, VITALS AND ASSESSMENTS. PT THINKS WE OWE HIM MONEY FROM THE [employer]. DIFFICULT TO REDIRECT AT TIMES. CAN MAKE NEEDS KNOWN. WILL CONT PLAN OF CARE.
[2019-08-21 20:00] VITALS: BP 158/86
--- NOTE | 2019-08-22 00:27 | NUR ---
B.) PT IS ALERT AND ORIENTED TO SELF ONLY. HE HAS POOR INSIGHT INTO HIS SITUATION. HE IS ABLE TO AMBULATE WITHOUT ASSIST. HE IS WITHDRAWN, SELF ISOLATING, AND FLAT AFFECT AT TIMES. HE IS DEMANDING, INTRUSIVE AND MANIUPULATIVE WITH STAFF. I.) PROVIDED PM MEDICATIONS PRESCRIBED. REDIRECT OFTEN. R.) COMPLIANT WITH ALL MEDICATIONS. EASY TO REDIRECT. P.) WILL CONTINUE TO MONITOR.
[2019-08-22 09:38] VITALS: BP 134/95
--- NOTE | 2019-08-22 10:55 | NUR ---
The patient is depressed, his affect is flat to blunted, he is not participating in groups, he eats his meals then he lay on the couch and sleep. Provide prescribed meds, encourage group participation. The patient is compliant with meds. The patient is not demanding food, he is solemn. Continue POC.
[2019-08-22 20:00] VITALS: BP 135/80
--- NOTE | 2019-08-22 20:33 | NUR ---
RECEIVED PATIENT IN DAYROOM, SLEEPING ON THE COUCH, COMPLIANT WITH MEDS, ASKED HOW HIS DAY WAS "I DON'T KNOW, BRYAN BEEN ASLEEP". FLAT AFFECT. WILL FOLLOW POC
[2019-08-23 09:20] VITALS: BP 129/59
--- NOTE | 2019-08-23 10:24 | NUR ---
The patient is not as flat today, but he remains depressed, he just wants to eat then go to sleep on the couch, he does not participate in groups, he has been polite. He is childlike in his behavior as he asks for cokes to drink or food. Provide prescribed meds. The patient is compliant with meds. Continue POC.
--- NOTE | 2019-08-23 15:59 | PN ---
PATIENT:MELISSA ISAAC MEDICAL RECORD: [id number] LOCATION:[facility] ADMISSION DATE: 08/15/19 PROGRESS NOTE DATE OF SERVICE: 08/22/2019 SUBJECTIVE: The patient's case was discussed with staff. The staff state that they do not appear to see him having any hallucinations; however, they do feel that he has some moments of delusional thoughts and statements. OBJECTIVE: The patient is in good behavioral control. The patient's general appearance is appropriate. He is oriented to person, place, and situation. His speech is soft, low tone, low volume. His associations are loose. His eye contact is fair. Judgment and insight is impaired. His thought concentration does have some mild blocking. His mood is anxious and depressed. Affect is restricted. No abnormal movements were noted. The patient does not appear to be attending to any visual, auditory hallucinations. His judgment and insight are poor. Impulsivity is high. ASSESSMENT: No change. PLAN: We are going to continue to monitor his tolerance to his medication change, monitor his mood and his thought, striving to stabilize both and will prepare patient for discharge. Keeping the patient safe from harming himself and others. Dictated By: Laurence Stone APN I have interviewed/examined the above patient and agree with these documented findings. TRANSINT:[id number] Voice Confirmation ID: [id number] DOCUMENT ID: [id number] JARON HULL MD at 1443 at 1559 CC: [id number] DICTATION DATE: 08/22/19 1442 CONTRACTS PARALEGAL: 08/22/19 2242 ADM IN [facility] [address] [id number]
[2019-08-23 20:00] VITALS: BP 160/76
--- NOTE | 2019-08-23 20:16 | NUR ---
RECEIVED PATIENT IN DAYROOM, PATIENT IS MORE ALERT TODAY AND HIS AFFECT IS GOOD, BUT DOES FALL ASLEEP RATHER QUICKLY, COMPLIANT WITH MEDS, DENIES S/I. NO ADVERSE REACTION NOTED. WILL FOLLOW POC
[2019-08-24 08:44] VITALS: BP 130/69
--- NOTE | 2019-08-24 09:31 | PN ---
PATIENT:MELISSA ISAAC MEDICAL RECORD: [id number] LOCATION:[facility] ADMISSION DATE: 08/15/19 PROGRESS NOTE DATE OF SERVICE: 08/23/2019 SUBJECTIVE: The patient's case was discussed with staff. The staff states that he does not appear to be attending to any hallucinations; however, he has been sleeping more today and wanting to basically eat and sleep. OBJECTIVE: The patient is in good behavioral control. The patient's general appearance is appropriate. He is oriented to person, place and situation. His speech is soft, low tone, low volume. His associations are loose. His eye contact is fair. His judgment and insight is impaired. Impulsivity is high. His thought and concentration has mild blocking. His affect is restricted. No abnormal movements were noted. At present, he does not appear to be attending to any visual or auditory external stimuli. ASSESSMENT: No change. PLAN: We will continue to monitor his tolerance to his medications. Monitor his mood, thought and suicidality. We will strive to keep him safe from harming himself. Dictated By: Laurence Stone APN I have interviewed/examined the above patient and agree with these documented findings. TRANSINT:[id number] Voice Confirmation ID: [id number] DOCUMENT ID: [id number] JARON HULL MD at 1444 at 0931 CC: [id number] DICTATION DATE: 08/23/19 1558 RADIATION THERAPIST: 08/23/19 2309 ADM IN [id number] [place] [address]
--- NOTE | 2019-08-24 12:20 | NUR ---
RECEIVED IN HALLWAY OUTSIDE OF NURSES STATION. CALM AND COOPERATIVE WITH CARE AND ASSESSMENT. DEPRESSED. STILL ISOLATING SELF IN DAYROOM. DOESN'T PARTICIPATE IN GROUPS. LAYS ON COUCH AND SLEEPS THROUGHOUT THE DAY. REDIRECT AND REORIENT NEEDED. EATING LUNCH AT THIS TIME. CONTINUE PLAN OF CARE.
--- NOTE | 2019-08-24 19:49 | NUR ---
RECEIVED IN DAYROOM. SITTING ON THE SOFA. CALM AND COOPERATIVE WITH CARE AND ASSESSMENT. NO STATEMENTS OF SELF HARM MADE THIS EVENING. ENCOURAGE TO EXPRESS NEEDS. WALKING ABOUT HALLWAY AT [employer] STATION AT THIS TIME. CONTINUE PLAN OF CARE.
[2019-08-24 20:00] VITALS: BP 166/82
[2019-08-25 08:44] VITALS: BP 121/74
--- NOTE | 2019-08-25 09:30 | NUR ---
RECEIVED IN HALLWAY OUTSIDE OF NURSES STATION. CALM AND COOPERATIVE WITH CARE AND ASSESSMENT. DEPRESSED. ISOLATES SELF FROM OTHERS. NOT PARTICIPATING IN GROUP. SLEEPING ON COUCH AT THIS TIME. CONTINUE PLAN OF CARE.
--- NOTE | 2019-08-25 14:43 | PN ---
PATIENT:MELISSA ISAAC MEDICAL RECORD: [id number] LOCATION:[facility] ADMISSION DATE: 08/15/19 PROGRESS NOTE DATE OF SERVICE: 08/21/2019 SUBJECTIVE: The patient's case was discussed with staff. He has no new complaint. OBJECTIVE: The patient is in good behavioral control. He has not been aggressive. He is eating adequately. He did not sleep very well last night, but he is spending a lot of time sleeping during the day. He reports that he is still having the auditory hallucinations, but he says that they have improved with the addition of the Haldol last night. ASSESSMENT: Schizophrenia. PLAN: The patient will be maintained on current medications. I am going to increase the dose of the Zoloft slightly. I have made no improvement in finding an alternate living situation with him and it may be necessary that he be discharged back to the same living circumstances. I think that is unfortunate as it is going to result in an additional hospitalization or hospitalizations if he continues to not receive adequate supervision. TRANSINT:[id number] Voice Confirmation ID: [id number] DOCUMENT ID: [id number] JARON HULL MD at 1443 CC: [id number] DICTATION DATE: 08/21/19 1627 RUBY ON RAILS CONSULTANT: 08/21/19 1640 ADM IN [id number] [place] [id number]
--- NOTE | 2019-08-25 14:44 | PN ---
PATIENT:MELISSA ISAAC MEDICAL RECORD: [id number] LOCATION:[facility] ADMISSION DATE: 08/15/19 PROGRESS NOTE DATE OF SERVICE: 08/24/2019 SUBJECTIVE: The patient's case was discussed with staff. Staff report that he slept 5.25 hours last night; however, he was napping throughout the day yesterday. Staff report that he has been denying suicidal thoughts. The patient is conversive. The patient states that his suicidal ideation has been decreasing and denies any plan. OBJECTIVE: General appearance is appropriate to environment. He is alert to person, place, time and situation. His speech is soft, low tone, low volume. His associations are moderate. His eye contact is fair. His judgment is impaired. He does have some thought blocking. His mood is depressed and anxious. Affect is restricted. No tremors were noted. His anxiety is moderate. His memory is fair for recent and remote events. The patient does not appear to be attending to visual or auditory hallucinations. ASSESSMENT: No change. PLAN: We will continue to monitor his tolerance to his medications, monitor his mood, thought, and suicidality, strive to keep himself safe from harming himself and preparing him for discharge. Dictated By: Laurence Stone APN I have interviewed/examined the above patient and agree with these documented findings. TRANSINT:[id number] Voice Confirmation ID: [id number] DOCUMENT ID: [id number] JARON HULL MD at 1444 CC: [id number] DICTATION DATE: 08/24/19930 LOGISTICS PROGRAM MANAGER: 08/24/19 0959 ADM IN [id number] [place] [address]
--- NOTE | 2019-08-25 19:38 | NUR ---
RECEIVED IN DAYROOM. RESTING QUIETLY ON THE SOFA. CALM AND COOPERATIVE WITH CARE AND ASSESSMENT. NO STATEMENTS OF SELF HARM MADE THIS EVENING. ENCOURAGE TO EXPRESS NEEDS. CONTINUES TO REST QUIETLY. CONTINUE PLAN OF CARE.
[2019-08-25 20:25] VITALS: BP 156/88
[2019-08-26 08:15] VITALS: BP 144/82
--- NOTE | 2019-08-26 09:20 | NUR ---
RECEIVED IN HALLWAY OUTSIDE OF NURSES STATION. CALM AND COOPERATIVE WITH CARE AND ASSESSMENT. WITHDRAWN. ISOLATES SELF FROM OTHERS. NOT PARTICIPATING IN GROUPS. SLEEPING ON COUCH AT THIS TIME. CONTINUE PLAN OF CARE.
--- NOTE | 2019-08-26 12:42 | PN ---
PATIENT:MELISSA ISAAC MEDICAL RECORD: [id number] LOCATION:[facility] ADMISSION DATE: 08/15/19 PROGRESS NOTE DATE OF SERVICE: 08/25/2019 SUBJECTIVE: The patient's case was discussed with staff. He has no new complaint. OBJECTIVE: The patient denies overt psychotic symptoms and he is generally tolerating his medicines well. I discussed alternate living situations with him and did not make much progress. He is clearly not interested in any kind of residential program. I am concerned about his behaviors once he leaves the hospital. He tends not to take his medicine, then begins to drink and take drugs, and he becomes psychotic. TRANSINT:[id number] Voice Confirmation ID: [id number] DOCUMENT ID: [id number] JARON HULL MD at 1242 CC: [id number] DICTATION DATE: 08/25/19 1613 BUSINESS ATTORNEY: 08/25/19 2132 ADM IN [facility] [address] [place] [address]
--- NOTE | 2019-08-26 19:49 | NUR ---
RECEIVED IN DAYROOM. LAYING ON SOFA. NOT SOCIAL WITH PEERS. CALM AND COOPERATIVE WITH CARE AND ASSESSMENT. NO STATEMENTS OF SELF HARM MADE. ENCOURAGE TO EXPRESS NEEDS. CONTINUES TO LAY QUIETLY ON SOFA. CONTINUE PLAN OF CARE.
[2019-08-26 20:40] VITALS: BP 136/87
[2019-08-27 08:54] VITALS: BP 147/92
--- NOTE | 2019-08-27 10:39 | NUR ---
LAYING ON SOFA WITH EYES CLOSED. RESPIRATIONS EVEN AND UNLABORED. NO S/S OF ACUTE DISTRESS NOTED. DENIES ANY NEEDS AT THIS TIME. WILL CONTINUE TO MONITOR.
--- NOTE | 2019-08-27 14:56 | PN ---
PATIENT:MELISSA ISAAC MEDICAL RECORD: [id number] LOCATION:[facility] ADMISSION DATE: 08/15/19 PROGRESS NOTE DATE OF SERVICE: 08/26/2019 SUBJECTIVE: The patient's case was discussed with staff. He has no new complaint. OBJECTIVE: The patient is in good behavioral control with limited insight. He is tolerating his medicines well. ASSESSMENT: Schizophrenia. PLAN: The patient will be maintained on current medicines. I am not pleased with the discharge plan, but do not see any reasonable alternative. He is his own guardian. He says he is not going to drink. He says he will go to AA. He says he will go to his outpatient mental health appointments. He says he will take his medicines. He says he will not use cocaine and all of these things have been said before. I am going to continue to work with at least one of his relatives and hopefully can convince him to go to a more supervised environment. TRANSINT:[id number] Voice Confirmation ID: [id number] DOCUMENT ID: [id number] JARON HULL MD at 1456 CC: [id number] DICTATION DATE: 08/26/19 1525 COMMERCIAL APPRAISER: 08/26/19 1747 ADM IN [id number] [place] [address]
[2019-08-27] MEDS ORDERED: COREG6.25 MG PO (15:37)
[2019-08-27] MEDS ORDERED: ZOLOFT100 MG PO (15:38)
[2019-08-27] MEDS ORDERED: MOBIC7.5 MG PO (15:38)
[2019-08-27] MEDS ORDERED: FLUTICASONE PRO16 GM NASAL (15:39)
[2019-08-27 19:55] VITALS: BP 121/94
--- NOTE | 2019-08-28 00:38 | NUR ---
B)RECEIVED PATIENT LAYING ON THE COUCH IN THE DAYROOM. ALERT AND ORIENTED. PATIENT IS AWARE OF DISCHARGE SUNDAY. PT IS JOKING WITH STAFF AND MAKING REQUEST FOR THINGS TO EAT AND DRINK. WILL MAKE SARCASTIC COMMENTS IN A JOKINGLY MANNER. I)ADMINISTER MEDS AND MONITOR COMPLIANCE. ENCOURAGE USE OF POSSIBLE COPING SKILLS AFTER DISCHARGE. R) MED COMPLIANT HOWEVER WAS TELLING NURSE HE THINKS WE ARE GIVING HIM TO MUCH MEDICINE HE HAD ALREADY HAD MEDICINE THIS MORMING AND THEN AT ANOTHER TIME AND THIS TIME MADE FOUR TIMES. PT RELATED "YEAH RIGHT" WHEN ENCOURAGING HIM TO USE POSITIVE COPING SKILLS VERSUS INDULGING IN DRUGS. P)CONTINUE POC AND PROVIDE SAFE ENVIRONMENT.
[2019-08-28 09:43] VITALS: BP 143/87
--- NOTE | 2019-08-28 11:11 | NUR ---
HE IS DISCHARGING TODAY. HE TOOK HIS MEDS WITHOUT ANY PROBLEMS. HE ATE 85% OF BREAKFAST, AT THE TABLE. HE WALKS AROUND IN THE DAY ROOM SOME, THEN SLEEPS ON THE KRISTEN.
--- NOTE | 2019-08-28 13:21 | PN ---
PATIENT:MELISSA ISAAC MEDICAL RECORD: [id number] LOCATION:[facility] ADMISSION DATE: 08/15/19 PROGRESS NOTE DATE OF SERVICE: 08/27/2019 SUBJECTIVE: The patient's case was discussed with staff. He has no new complaint. OBJECTIVE: The patient is in good behavioral control. He has limited insight about his condition. He does tolerate his medicines well. He is denying overt psychotic symptoms. ASSESSMENT: Schizophrenia. PLAN: The patient will be transitioned out of the hospital tomorrow. His long-term prognosis is guarded and will be entirely contingent upon him following through with the outpatient treatment recommendations. TRANSINT:[id number] Voice Confirmation ID: [id number] DOCUMENT ID: [id number] JARON HULL MD at 1321 CC: [id number] DICTATION DATE: 08/27/19 1537 BRIM AND CROWN PRESSER: 08/27/19 1752 ADM IN [id number] [place] [id number]
--- NOTE | 2019-08-28 14:49 | NUR ---
Nutrition Follow-up: Some fluctuation in PO intake. Ate 85% of breakfast this AM. Noted plans to d/c today. Diet: Diabetic, Double Portions PO intake: 69% avg x 10 meals; ranges from 20-100% Wt: 172# (08/23); 170# (08/16); 168# (admit) Last BM: 08/22 No new labs Meds noted: Miralax, HCTZ, folate, vitamin D, Protonix -Encourage PO intake and honor food preferences within diet restrictions. -Monitor wt. -RD following.
--- NOTE | 2019-08-28 16:45 | NUR ---
PT DISCHARGED HOME TODAY WITH APPOINTMENT WITH PCP. REFFERAL TO [facility]. PT BELONGINGS GIVEN TO HIM. PAPERWORK FAXED TO PCP. PT WALKED OUT OF UNIT IN A GOOD MOOD. WENT OVER PT PAPRWORK WITH HIM AND HE VERBAILIZED UNDERSTANDING.
== END 2019-08-28 16:45 | disposition home or self-care (01) | DRG 885 ==
LOC: D.ER 12:23 → D.PSYCH 15:00
PROVIDERS: Family Medicine; ADMIT Psychiatry & Neurology Psychiatry; ATTEND Psychiatry & Neurology Psychiatry
DX: F20.9 Schizophrenia, unspecified (principal); R45.851 Suicidal ideations; Z72.89 Other problems related to lifestyle; I10 Essential (primary) hypertension; E11.9 Type 2 diabetes mellitus without complications; F33.3 Major depressive disorder, recurrent, severe with psychotic symptoms; J43.9 Emphysema, unspecified; F14.10 Cocaine abuse, uncomplicated; K21.9 Gastro-esophageal reflux disease without esophagitis; E78.2 Mixed hyperlipidemia; E55.9 Vitamin D deficiency, unspecified; K59.01 Slow transit constipation; J30.9 Allergic rhinitis, unspecified; Z72.0 Tobacco use

== ENCOUNTER 2019-09-22 19:50 | Emergency (ER) | payer OTHER ==
[~2019-09-22] VITALS: Ht 175.3 cm; Wt 90.9 kg
[~2019-09-22 19:50] MED LIST changes: +COREG6.25 MG PO; +FLUTICASONE PRO16 GM NASAL; +ZOLOFT100 MG PO
[2019-09-22 19:55] VITALS: Ht 175.3 cm; Wt 90.9 kg
[2019-09-22 20:46] LABS: BASOPHILS 0.3 % (0-2); EOSINOPHILS 0.8 % (0-7); HEMATOCRIT 39.5 % (42.0-54.0); HEMOGLOBIN 13.8 g/dL (13.5-17.5); IMMATURE GRANULOCYTES 0.4 % (0-5); LYMPHOCYTES 13.8 % (15-50); MCH 28.9 pg (26.0-34.0); MCHC 34.9 g/dL (31.0-37.0); MCV 82.6 fL (80.0-100.0); MEAN PLATELET VOLUME 8.4 fL (7.4-10.4); MONOCYTES 6.3 % (2-11); NEUTROPHILS 78.4 % (40-80); PLATELET COUNT 243 10x3/uL (130-400); RBC 4.78 10x6/uL (4.20-6.10); RDW 13.6 % (11.5-14.5); WBC 7.3 10x3/uL (4.8-10.8)
[2019-09-22 20:58] LABS: APTT 30.1 SECONDS (22.8-39.4); INR 1.21 (0.85-1.17); PROTIME 15.2 SECONDS (11.6-15.0)
[2019-09-22 21:14] LABS: ALBUMIN 3.1 g/dL (3.4-5.0); ALKALINE PHOSPHATASE 43 U/L (30-120); ALT (SGPT) 17 U/L (10-68); BILIRUBIN - TOTAL 0.38 mg/dL (0.2-1.3); CALC OSMOLALITY 244 mosm/kg (275-300); CARBON DIOXIDE 26.7 mmol/L (21.0-32.0); CHLORIDE - SERUM 87 mmol/L (98-107); CKMB 0.4 U/L (0.0-3.6); CREATINE KINASE 71 UL (21-232); CREATININE - SERUM 0.8 mg/dL (0.6-1.3); GLUCOSE 115 mg/dL (74-106); MAGNESIUM - SERUM 1.9 mg/dL (1.8-2.4); PROTEIN - SERUM 7.3 g/dL (6.4-8.2); SODIUM 122 mmol/L (136-145); THYROID STIMULATING HORMONE 5.54 uIU/mL (0.36-3.74); UREA NITROGEN 7 mg/dL (7-18); eGFR NON AFRICAN AMERICAN > 90 mL/min (90-120)
[2019-09-22 21:16] LABS: TROPONIN-I < 0.017 ng/mL (0.000-0.060)
[2019-09-22 21:20] LABS: POTASSIUM - SERUM 2.9 mmol/L (3.5-5.1)
[2019-09-22] MEDS ORDERED: K-DUR20 MEQ PO (21:49)
[2019-09-22 23:28] VITALS: BP 154/95
== END 2019-09-22 23:28 | disposition home or self-care (01) ==
LOC: D.ER 19:50
PROVIDERS: Family Medicine
DX: E87.6 Hypokalemia (principal); E87.1 Hypo-osmolality and hyponatremia; S01.81XA Laceration without foreign body of other part of head, initial encounter; W10.9XXA Fall (on) (from) unspecified stairs and steps, initial encounter; Y93.9 Activity, unspecified; Y92.009 Unspecified place in unspecified non-institutional (private) residence as the place of occurrence of the external cause; R55 Syncope and collapse; E11.9 Type 2 diabetes mellitus without complications; I10 Essential (primary) hypertension; J44.9 Chronic obstructive pulmonary disease, unspecified; Z72.0 Tobacco use; K21.9 Gastro-esophageal reflux disease without esophagitis

== ENCOUNTER 2019-10-06 14:58 | Inpatient (IN) | payer OTHER ==
[2019-10-06] VITALS (8 sets, daily range): BP systolic 156–244; BP diastolic 91–131; BMI 24.4
[~2019-10-06] VITALS: Ht 175.3 cm; Wt 76.5 kg
[~2019-10-06 14:58] MED LIST changes: +K-DUR20 MEQ PO
[2019-10-06] MEDS ORDERED: GLUCOPHAGE500 MG PO (15:50)
[2019-10-06 16:07] LABS: BASOPHILS 0 % (0-2); EOSINOPHILS 0.1 % (0-7); HEMATOCRIT 43.9 % (42.0-54.0); IMMATURE GRANULOCYTES 0.3 % (0-5); LYMPHOCYTES 2.2 % (15-50); MCHC 36.4 g/dL (31.0-37.0); MCV 79.5 fL (80.0-100.0); MEAN PLATELET VOLUME 9.2 fL (7.4-10.4); MONOCYTES 5.1 % (2-11); NEUTROPHILS 92.3 % (40-80); PLATELET COUNT 275 10x3/uL (130-400); RBC 5.52 10x6/uL (4.20-6.10); RDW 13.5 % (11.5-14.5); WBC 14.5 10x3/uL (4.8-10.8)
[2019-10-06 16:14] LABS: APTT 30.4 SECONDS (22.8-39.4); INR 1.13 (0.85-1.17); PROTIME 14.4 SECONDS (11.6-15.0)
[2019-10-06 16:29] LABS: ALBUMIN 3.7 g/dL (3.4-5.0); ALKALINE PHOSPHATASE 51 U/L (30-120); ALT (SGPT) 23 U/L (10-68); BILIRUBIN - TOTAL 0.92 mg/dL (0.2-1.3); CARBON DIOXIDE 28.3 mmol/L (21.0-32.0); CKMB 1.5 U/L (0.0-3.6); CREATINE KINASE 164 UL (21-232); GLUCOSE 131 mg/dL (74-106); MAGNESIUM - SERUM 1.8 mg/dL (1.8-2.4); POTASSIUM - SERUM 3.7 mmol/L (3.5-5.1); PROTEIN - SERUM 8.2 g/dL (6.4-8.2); THYROID STIMULATING HORMONE 3.08 uIU/mL (0.36-3.74); UREA NITROGEN 13 mg/dL (7-18); eGFR NON AFRICAN AMERICAN 79 mL/min (90-120)
[2019-10-06 16:30] LABS: CALC OSMOLALITY 236 mosm/kg (275-300); TROPONIN-I < 0.017 ng/mL (0.000-0.060)
[2019-10-06 16:31] LABS: CHLORIDE - SERUM 82 mmol/L (98-107); SODIUM 116 mmol/L (136-145)
--- NOTE | 2019-10-06 17:56 | NUR ---
TRAUMA BAND NUMBER - [id number]
--- NOTE | 2019-10-06 18:15 | NUR ---
c-collar placed per erp order.
--- NOTE | 2019-10-06 19:00 | NUR ---
REPORT GIVEN TO ALCON LEON.
--- NOTE | 2019-10-06 21:50 | NUR ---
PT RECIEVED FROM ER VIA STRETCHER, CONFUSED, COMBATIVE WITH CARE, RIGHT HAND PIV INTACT AND SL, PLACED SANCHEZ CATH, U/A SPECIMEN SENT TO LAB, MISSY MONTERO APN PRESENT, ORDERS RECIEVED, SCD'S PLACED TO BILAT LOWER LEGS
--- NOTE | 2019-10-06 22:40 | NUR ---
PT TAKEN TO CT VIA BED, RESTING QUIETLY, VITALS STABLE
[2019-10-07] VITALS (74 sets, daily range): BP systolic 115–213; BP diastolic 68–120; Ht 175.3 cm; Wt 76.5 kg
[2019-10-07 00:22] LABS: CALCIUM 8.7 mg/dL (8.5-10.1); CARBON DIOXIDE 24.9 mmol/L (21.0-32.0); CREATININE - SERUM 0.9 mg/dL (0.6-1.3); GLUCOSE 168 mg/dL (74-106); POTASSIUM - SERUM 3.3 mmol/L (3.5-5.1); UREA NITROGEN 14 mg/dL (7-18); eGFR NON AFRICAN AMERICAN 90 mL/min (90-120)
[2019-10-07 00:24] LABS: BILIRUBIN NEGATIVE (NEGATIVE); GLUCOSE 100 mg/dL (NEGATIVE); KETONE SMALL mg/dL (NEGATIVE); NITRITE NEGATIVE (NEGATIVE); UDS - AMPHET NEGATIVE QUAL (NEGATIVE); UDS - BARB NEGATIVE QUAL (NEGATIVE); UDS - BENZO NEGATIVE QUAL (NEGATIVE); UDS - COCAINE POSITIVE QUAL (NEGATIVE); UDS - OPIATE NEGATIVE QUAL (NEGATIVE); UDS - PCP NEGATIVE QUAL (NEGATIVE); UDS - THC POSITIVE QUAL (NEGATIVE); UROBILINOGEN NORMAL (NORMAL)
[2019-10-07 00:25] LABS: BACTERIA FEW /hpf (NEGATIVE); EPITHELIAL CELLS 0-5 /hpf (0-5); RED CELLS - URINE 0-5 /hpf (0-5); WHITE CELLS - URINE 0-5 /hpf (NEGATIVE)
--- NOTE | 2019-10-07 00:30 | NUR ---
PT AWAKE AT TIMES, COMBATIVE,TRYING TO CLIMB OUT OF BED, RESTRAINTS REMAIN IN USE, WILL CONT TO MONITOR
[2019-10-07 00:33] LABS: CALC OSMOLALITY 241 mosm/kg (275-300)
[2019-10-07 00:34] LABS: CHLORIDE - SERUM 84 mmol/L (98-107); SODIUM 117 mmol/L (136-145)
--- NOTE | 2019-10-07 03:07 | NUR ---
PT SLEEPING WITH NO DISTRESS, LABETALOL GTT INFUSING VIA RIGHT HAND PIV
[2019-10-07 04:27] LABS: BASOPHILS 0 % (0-2); EOSINOPHILS 0 % (0-7); HEMATOCRIT 40.4 % (42.0-54.0); HEMOGLOBIN 14.7 g/dL (13.5-17.5); IMMATURE GRANULOCYTES 0.3 % (0-5); LYMPHOCYTES 1.9 % (15-50); MCH 29.2 pg (26.0-34.0); MCHC 36.4 g/dL (31.0-37.0); MCV 80.2 fL (80.0-100.0); MEAN PLATELET VOLUME 9.7 fL (7.4-10.4); MONOCYTES 10.1 % (2-11); NEUTROPHILS 87.7 % (40-80); PLATELET COUNT 235 10x3/uL (130-400); RBC 5.04 10x6/uL (4.20-6.10); RDW 13.7 % (11.5-14.5); WBC 12.7 10x3/uL (4.8-10.8)
[2019-10-07 04:47] LABS: APTT 29.8 SECONDS (22.8-39.4); INR 1.23 (0.85-1.17); PROTIME 15.4 SECONDS (11.6-15.0)
[2019-10-07 04:51] LABS: CALCIUM 8.9 mg/dL (8.5-10.1); CARBON DIOXIDE 28.1 mmol/L (21.0-32.0); CREATININE - SERUM 0.9 mg/dL (0.6-1.3); GLUCOSE 136 mg/dL (74-106); MAGNESIUM - SERUM 1.8 mg/dL (1.8-2.4); PHOSPHOROUS 2.7 mg/dL (2.5-4.9); POTASSIUM - SERUM 3.1 mmol/L (3.5-5.1); PRO BNP 463 pg/mL (0-125); UREA NITROGEN 15 mg/dL (7-18); eGFR NON AFRICAN AMERICAN 90 mL/min (90-120)
--- NOTE | 2019-10-07 05:00 | NUR ---
PT SLEEPING QUIETLY, OPENS EYES TO STIMULI, VITALS STABLE, REMAINS IN RESTRAINTS FOR PT SAFETY
[2019-10-07 05:18] LABS: CALC OSMOLALITY 240 mosm/kg (275-300)
[2019-10-07 05:19] LABS: CHLORIDE - SERUM 83 mmol/L (98-107); SODIUM 118 mmol/L (136-145)
[2019-10-07 08:53] LABS: CALCIUM 8.3 mg/dL (8.5-10.1); GLUCOSE 159 mg/dL (74-106); UREA NITROGEN 16 mg/dL (7-18)
[2019-10-07 08:54] LABS: CALC OSMOLALITY 236 mosm/kg (275-300); CREATININE - SERUM 0.6 mg/dL (0.6-1.3); POTASSIUM - SERUM 3.7 mmol/L (3.5-5.1); eGFR NON AFRICAN AMERICAN > 90 mL/min (90-120)
[2019-10-07 08:55] LABS: CHLORIDE - SERUM 82 mmol/L (98-107); SODIUM 115 mmol/L (136-145)
[2019-10-07 12:55] LABS: CALCIUM 8.6 mg/dL (8.5-10.1); GLUCOSE 138 mg/dL (74-106); POTASSIUM - SERUM 3.7 mmol/L (3.5-5.1); UREA NITROGEN 15 mg/dL (7-18)
[2019-10-07 13:02] LABS: CALC OSMOLALITY 244 mosm/kg (275-300); CREATININE - SERUM 0.9 mg/dL (0.6-1.3); eGFR NON AFRICAN AMERICAN 90 mL/min (90-120)
[2019-10-07 13:03] LABS: SODIUM 120 mmol/L (136-145)
[2019-10-07 13:04] LABS: CHLORIDE - SERUM 85 mmol/L (98-107)
--- NOTE | 2019-10-07 13:30 | NUR ---
DR YANG IN ROOM. UPDATE GIVEN. WILL CONTINUE TO MONITOR
--- NOTE | 2019-10-07 17:08 | NUR ---
FAMILY MEMBER IN ROOM. GAVE UPDATE. NO OTHER QUESTIONS AT THIS TIME. WILL CONTINUE TO MONITOR
[2019-10-07 17:10] LABS: CALCIUM 8.4 mg/dL (8.5-10.1); CARBON DIOXIDE 28.1 mmol/L (21.0-32.0); GLUCOSE 141 mg/dL (74-106); POTASSIUM - SERUM 3.5 mmol/L (3.5-5.1); UREA NITROGEN 15 mg/dL (7-18); eGFR NON AFRICAN AMERICAN 79 mL/min (90-120)
[2019-10-07 17:13] LABS: CALC OSMOLALITY 244 mosm/kg (275-300); CHLORIDE - SERUM 85 mmol/L (98-107); SODIUM 120 mmol/L (136-145)
--- NOTE | 2019-10-07 19:30 | NUR ---
ASSESSMENT COMPLETED, OPENS EYES TO STIMULI, CONFUSED, O2 @ 2L VIA N/C, RIGHT HAND PIV INTACT WITH LABETALOL GTT INFUSING, RIGHT FOREARM PIV INTACT WITH POTASSIUM RIDER INFUSING, LAURA PATENT TO BSD, BILAT SWR IN USE, VITALS STABLE
[2019-10-07 20:44] LABS: CALCIUM 8.2 mg/dL (8.5-10.1); CARBON DIOXIDE 26.4 mmol/L (21.0-32.0); GLUCOSE 147 mg/dL (74-106); POTASSIUM - SERUM 3.8 mmol/L (3.5-5.1); UREA NITROGEN 15 mg/dL (7-18)
[2019-10-07 20:45] LABS: CALC OSMOLALITY 240 mosm/kg (275-300); CREATININE - SERUM 0.7 mg/dL (0.6-1.3); eGFR NON AFRICAN AMERICAN > 90 mL/min (90-120)
[2019-10-07 20:47] LABS: CHLORIDE - SERUM 84 mmol/L (98-107); SODIUM 117 mmol/L (136-145)
--- NOTE | 2019-10-07 23:00 | NUR ---
RIGHT FOREARM PIV INFILTRATED, RESITED TO SIDE OF RIGHT FOREARM, PT TOLERATED WELL
[2019-10-08] VITALS (93 sets, daily range): BP systolic 119–195; BP diastolic 63–118
--- NOTE | 2019-10-08 01:30 | NUR ---
PT SLEEPING WITH NO DISTRESS, LABETALOL INCREASED DUE TO ELEVATED B/P, WILL CONT TO MONITOR
--- NOTE | 2019-10-08 03:00 | NUR ---
PT BATHED PER STAFF, NO CHANGE NOTED IN STATUS
[2019-10-08 04:30] LABS: BASOPHILS 0 % (0-2); EOSINOPHILS 0.1 % (0-7); HEMATOCRIT 38.6 % (42.0-54.0); IMMATURE GRANULOCYTES 0.3 % (0-5); LYMPHOCYTES 4.5 % (15-50); MCH 29.4 pg (26.0-34.0); MCHC 36.3 g/dL (31.0-37.0); MCV 81.1 fL (80.0-100.0); MEAN PLATELET VOLUME 9.8 fL (7.4-10.4); MONOCYTES 9.4 % (2-11); NEUTROPHILS 85.7 % (40-80); PLATELET COUNT 207 10x3/uL (130-400); RBC 4.76 10x6/uL (4.20-6.10); RDW 13.6 % (11.5-14.5)
[2019-10-08 04:38] LABS: MAGNESIUM - SERUM 2.1 mg/dL (1.8-2.4); PHOSPHOROUS 2.6 mg/dL (2.5-4.9)
--- NOTE | 2019-10-08 05:26 | NUR ---
PT AWAKENS AT TIMES, YELLS OUT FOE HELP, UNCOOPERATIVE, VITALS STABLE
--- NOTE | 2019-10-08 07:00 | NUR ---
PT REPORT RECEIVED FROM MARINE CARGO SPECIALIST NURSE. SHIFT ASSESSMENT COMPLETED. WILL CONTINUE TO MONITOR
--- NOTE | 2019-10-08 07:28 | NUR ---
Nutrition follow-up: Pt remains NPO 2/2 confusion Continues to yell out and trying to get out of bed per nurse. Labs reviewed Wt: 165# Will need to start diet soon to prevent malnutrition. RDN following.
--- NOTE | 2019-10-08 09:10 | NUR ---
PT STATED HE NEEDED TO POOP. PLACED PT ON BEDPAN.
[2019-10-08 09:12] LABS: CALCIUM 8.1 mg/dL (8.5-10.1); CARBON DIOXIDE 24.9 mmol/L (21.0-32.0); CREATININE - SERUM 0.7 mg/dL (0.6-1.3); GLUCOSE 128 mg/dL (74-106); POTASSIUM - SERUM 3.8 mmol/L (3.5-5.1); UREA NITROGEN 15 mg/dL (7-18); eGFR NON AFRICAN AMERICAN > 90 mL/min (90-120)
[2019-10-08 09:19] LABS: CALC OSMOLALITY 237 mosm/kg (275-300)
[2019-10-08 09:20] LABS: CHLORIDE - SERUM 84 mmol/L (98-107); SODIUM 116 mmol/L (136-145)
--- NOTE | 2019-10-08 09:35 | NUR ---
PT TAKEN OFF BEDPAN. NO BM
--- NOTE | 2019-10-08 10:40 | NUR ---
CT HERE TO TAKE PT TO GET CT SCAN.
--- NOTE | 2019-10-08 10:55 | NUR ---
PT BACK IN ROOM HOOKED BACK UP TO ICU MONITOR. PT TOLERATED CT SCAN WELL. WILL CONTINUE TO MONITOR
--- NOTE | 2019-10-08 13:48 | NUR ---
SPEECH THERAPY IN ROOM. PT TOLERATED SIPS OF WATER HOWEVER WAS CONFUSED AND UNCOOPERATIVE. WILL CONTINUE TO MONITOR
[2019-10-08 14:14] LABS: CALC OSMOLALITY 241 mosm/kg (275-300); CALCIUM 8.3 mg/dL (8.5-10.1); CARBON DIOXIDE 25.9 mmol/L (21.0-32.0); CHLORIDE - SERUM 87 mmol/L (98-107); CREATININE - SERUM 0.7 mg/dL (0.6-1.3); GLUCOSE 128 mg/dL (74-106); POTASSIUM - SERUM 3.6 mmol/L (3.5-5.1); UREA NITROGEN 13 mg/dL (7-18); eGFR NON AFRICAN AMERICAN > 90 mL/min (90-120)
[2019-10-08 14:24] LABS: SODIUM 119 mmol/L (136-145)
--- NOTE | 2019-10-08 14:35 | NUR ---
OT NOTE: ATTEMPTED EVAL ON PT TODAY; PT WAS VERY LETHARGIC; UNABLE TO STAY AWAKE LONG ENOUGH TO PARTICIPATE. UNABLE TO FOLLOW COMMANDS DUE TO LETHARGY. ATTTEMPTED ROM AND COGNITIVE ACT, BUT UNABLE TO FULLY COMPLETE EVAL TODAY. WILL RE ATTEMPT TOMORROW. RUFINA ROGEL, OTR/L [phone]
--- NOTE | 2019-10-08 17:44 | NUR ---
pt transferred to cvicu. olamide took report and met pt in room. pt tolerated transition well. will continue to monitor
--- NOTE | 2019-10-08 17:57 | NUR ---
PATIENT RECIEVED FROM ICU VIA BED. PATIENT LETHARGIC BUT AROUSES TO VOICE, CONFUSED TO WHY HE IS AT THE HOSPITAL AND THE YEAR, ALERT TO SELF AND THAT HE IS IN THE HOSPITAL. VSS. CM - NSR RATE OF 74, NO ECTOPY NOTED. BBS - CLEAR AND EQUAL, DIMINISHED IN THE BASES, ON RA SPO2 - 99%. IV 20 GA TO RIGHT HAND INFUSING LABETALOL AT 0.4 MG/HR (24 ML/HR). PUPILS PEARRLA AT 3 MM. IV 20 GA TO RIGHT FOREARM NSL. SPEECH IS SOMEWHAT GARBLED AND DIFFICULT TO UNDERSTAND AT TIMES. POSITIONED IN BED.
--- NOTE | 2019-10-08 18:50 | MORECARE ---
CASE MANAGEMENT DISCHARGE SUMMARY PATIENT: MELISSA ISAAC UNIT: [id number] ADM DATE: 10/06/19 AGE: 64 : 53 SEX: M ROOM/BED: [facility] AUTHOR: ANTOLIN SHI PHYSICIAN: REFERRING PHYSICIAN: AMY YANG MD DATE OF SERVICE: 10/08/19 Discharge Plan Patient Name: MELISSA ISAAC Facility: [facility]:[place] : 1955 Planned Disposition: Anticipated Discharge Date: Discharge Date: Expected LOS: Initial Reviewer: [email or web address] Initial Review Date: 10/06/2019 Generated: 10/08/19 7:49 pm Patient Name: MELISSA ISAAC Page [id number] at 1850 All edits/amendments must be made on the electronic document DICTATION DATE: 10/08/191848 GRAPHIC ENGINEER: STANTON 10/08/191848 RPT#: [id number] DC DATE: STATUS: ADM IN [facility] [address] [place] [address] END OF REPORT
--- NOTE | 2019-10-08 18:56 | MORECARE ---
CASE MANAGEMENT DISCHARGE SUMMARY PATIENT: MELISSA ISAAC UNIT: [id number] ADM DATE: 10/06/19 AGE: 64 : 53 SEX: M ROOM/BED: D[facility] AUTHOR: YURIDIA,DOC PHYSICIAN: REFERRING PHYSICIAN: AMY YANG MD DATE OF SERVICE: 10/08/19 Discharge Plan Patient Name: MELISSA ISAAC Facility: [facility]:[place] : 1955 Planned Disposition: Anticipated Discharge Date: Discharge Date: Expected LOS: Initial Reviewer: [email or web address] Initial Review Date: 10/06/2019 Generated: 10/08/19 7:55 pm Comments DCP- Discharge Planning Updated by [email or web address]: Ania Mathur on 10/08/19 5:[address] Patient Name: MELISSA ISAAC Admission Status: ER Accout number: [id number] Admission Date: 10-06-2019 : 1955 Admission Diagnosis: Attending: AMY YANG Current LOS: 2 Anticipated DC Date: Planned Disposition: Primary Insurance: [employer] Discharge Planning Comments: CM met with patient at bedside after explaining CM role and obtaining verbal consent. Patient requested CM call and speak to his halie [place] [phone]. CM called [facility] and patient lives at home with his two nephews where he is independent with his care and plans to return there upon discharge. CM discussed availability / needs of home health and medical equipment. Uncertain of any discharge needs at this time. Patient will have his family drive him home upon discharge. CM will continue to follow and assist as needed with discharge planning / needs. Assistant Media Buyer: Ania Mathur DCPIA - Discharge Planning Initial Assessment Updated by [email or web address]: Ania Mathur on 10/08/19 6:51 pm * Is the patient Alert and Oriented? Yes * How many steps to enter\exit or inside your home? * PCP [facility] * Pharmacy [facility] * Preadmission Environment Home with Family * ADLs Independent * Equipment None * List name and contact numbers for known caregivers / representatives who currently or will assist patient after discharge: SABAS JOYCE - [phone] HANNAH -LIVES IN [place] - DAUGHTER - [phone] * Verbal permission to speak to the caregivers and representatives has been obtained from the patient. Yes * Community resources currently utilized None * Additional services required to return to the preadmission environment? No * Can the patient safely return to the preadmission environment? Yes * Has this patient been hospitalized within the prior 30 days at any hospital? No Last DP export: 10/08/19 5:49 p Patient Name: MELISSA ISAAC Page [id number] at 1856 All edits/amendments must be made on the electronic document DICTATION DATE: 10/08/191854 RECRUITING ASSISTANT: STANTON 10/08/191854 RPT#: [id number] DC DATE: STATUS: ADM IN [facility] [address] [place] [address] END OF REPORT
--- NOTE | 2019-10-08 19:00 | NUR ---
SHIFT ASSESSMENT COMPLETED. PT CARE ASSUMED, MONITORS ON AND WORKING, VITALS STABLE. PT RESTING IN BED QUITELY. CALL LIGHT WITHIN REACH SEE FLOW SHEET FOR FURTHER DETAILS. WILL CONTINUE TO OBSERVE.
--- NOTE | 2019-10-08 21:00 | NUR ---
PT FAMILY CALLED, PASSCODE CONFIRMED AND UPDATE PROVIDED, MONITORS ON AND WORKING, VITALS STABLE. PT RESTING QUITELY, WILL CONTINUE TO OBSERVE.
--- NOTE | 2019-10-08 23:00 | NUR ---
PT LYING IN BED RESTING, MONITORS ON AND WORKING, VITALS STABLE. PT CONFUSED ON TIME PLACE AND SITUATION. SEE FLOW SHEET FOR FURTHER DETAILS. WILL CONTINUE TO OBSERVE.
[2019-10-09] VITALS (60 sets, daily range): BP systolic 117–186; BP diastolic 61–837
--- NOTE | 2019-10-09 01:00 | NUR ---
PT ATTEMPTED TO GET OUT OF BED, CONFUSED ON SITUATION, REDIRECTED BACK INTO BED, PT RESTING MOST OF THIS SHIFT, WILL CONTINUE TO OBSERVE.
--- NOTE | 2019-10-09 03:00 | NUR ---
NO CHANGES, SEE FLOW SHEET FOR FURTHER DETAILS. WILL CONTINUE TO OBSERVE.
[2019-10-09 06:47] LABS: BASOPHILS 0 % (0-2); EOSINOPHILS 0.3 % (0-7); IMMATURE GRANULOCYTES 0.3 % (0-5); LYMPHOCYTES 6.9 % (15-50); MCH 29.2 pg (26.0-34.0); MCHC 35.9 g/dL (31.0-37.0); MCV 81.4 fL (80.0-100.0); MEAN PLATELET VOLUME 9.2 fL (7.4-10.4); MONOCYTES 8.9 % (2-11); NEUTROPHILS 83.6 % (40-80); PLATELET COUNT 211 10x3/uL (130-400); RBC 4.79 10x6/uL (4.20-6.10); RDW 13.7 % (11.5-14.5); WBC 7.1 10x3/uL (4.8-10.8)
--- NOTE | 2019-10-09 07:01 | NUR ---
LYING IN BED RESTING AT THIS TIME. RESPIRATIONS STEADY AND UNLABORED. AWAKENS WHEN SPOKEN TO. PT CONFUSED TO TIME AND SITUATION. STATED "I WANT TO GO HOME" DURING INITIAL ASSESSMENT. PT ENCOURAGED TO WAIT TO SPEAK WITH PHYSICIAN LATER TODAY, PT STATED "OKAY" AND THEN WENT BACK TO SLEEP. NO ACUTE DISTRESS NOTED. VSS. WILL CONTINUE PLAN OF CARE.
[2019-10-09 08:33] LABS: ALBUMIN 2.7 g/dL (3.4-5.0); ALKALINE PHOSPHATASE 35 U/L (30-120); ALT (SGPT) 33 U/L (10-68); CALC OSMOLALITY 246 mosm/kg (275-300); CALCIUM 8.7 mg/dL (8.5-10.1); CARBON DIOXIDE 26.7 mmol/L (21.0-32.0); CHLORIDE - SERUM 90 mmol/L (98-107); GLUCOSE 111 mg/dL (74-106); POTASSIUM - SERUM 3.4 mmol/L (3.5-5.1); PROTEIN - SERUM 6.5 g/dL (6.4-8.2); SODIUM 122 mmol/L (136-145); UREA NITROGEN 13 mg/dL (7-18); eGFR NON AFRICAN AMERICAN 90 mL/min (90-120)
[2019-10-09 08:34] LABS: CREATININE - SERUM 0.9 mg/dL (0.6-1.3)
--- NOTE | 2019-10-09 08:40 | NUR ---
PT TRANSFERRED TO ROOM 2302 AT THIS TIME VIA BED ACCOMPANIED BY HOSPITAL STAFF. VSS. NO ACUTE DISTRESS NOTED. NO FURTHER ACTIONS.
--- NOTE | 2019-10-09 12:41 | NUR ---
OT NOTE: PT REMAINS VERY LETHARGIC, HOWEVER, DID GET PT TO EOB WITH MOD ASSIST; MOD ASSIST TO MAINTAIN STATIC SITTING BALANCE ON EOB. PT APPARENTLY HAD A LARGE AMOUNT OF SALIVE IN MOUTH AND CHOKED UPON SITTING UP. APPROX 3-4 MIN OF COUGHING FOLLOWED. ST ALSO IN ROOM TO ASSESS PTS SWALLOW. PT WAS ABLE TO HOLD CUP OF PUDDING AND FEED SELF WITH MIN ASSIST.. DECREASED COORDINATION NOTED DURING FEEDING. TOLERATED SITTING UP ON EOB X APPROX 12 MIN . BACK TO BED WITH MOD ASSIST FOR LE MGMT. PT WAS MORE ALERT AND VERBALLY RESPONSIVE TODAY. RUFINA ROGEL, OTR/L [phone]
--- NOTE | 2019-10-09 14:02 | NUR ---
1045 BEDSIDE REPORT OBTAINED FROM SAMUEL RONDON
--- NOTE | 2019-10-09 14:24 | NUR ---
1140 SERUM POTASSIUM 3.4 INITIATED K+ REPLACEMENT RIDERS
--- NOTE | 2019-10-09 14:26 | NUR ---
1150 RESTARTED NORMADYNE GTT AT 1.1 MG/MIN SEE IV FLOW SHEET
--- NOTE | 2019-10-09 14:28 | NUR ---
[facility]. FAILED SWALLOW STUDY
--- NOTE | 2019-10-09 14:29 | NUR ---
1325 PT BECOMING VERY AGITATED ATIVAN 1MG IV GIVEN
--- NOTE | 2019-10-09 14:30 | NUR ---
1335 INCREASED NORMADYNE GTT TO 0.3MG/HR PLACED 14 fr NGT TO RIGHT NARE WITHOUT COMPLICATIONNS
--- NOTE | 2019-10-09 14:32 | NUR ---
1410 NGT PLACEMENT VERIFIED VIA ABD XRAY AND 10ML AIR BOLUS
--- NOTE | 2019-10-09 14:48 | NUR ---
1445 STARTED JEVITY 1.2 RADHA AT 25ML/HR
--- NOTE | 2019-10-09 15:33 | NUR ---
OT NOTE: PT COMPLETED BED MOB WITH MODA. PT COMPLETED EOB SITTING WITH MIN A. PT COMPETED FACE HYGIENE WITH MIN A. PT REQUIRED EXTENSIVE VERBAL CUES FOR INCREASED PARTICIPATION AND SEQUENCING. PT IS RESPONDING TO QUESTIONS. [phone] THANK YOU,AGNIESZKA SANDERS
--- NOTE | 2019-10-09 20:12 | NUR ---
PATIENT RECEIVED IN BED, PATIENT HAS PERIODS OF CONFUSION AND HAS TO BE REDIRECTED TO STAY IN THE BED, IV PATENT, SANCHEZ DRAINING CLEAR YELLOW URINE. BP STABLE AT THIS TIME. WILL CONTINUE TO MONITOR
[2019-10-10] VITALS (72 sets, daily range): BP systolic 132–173; BP diastolic 29–115
[2019-10-10 03:46] LABS: BASOPHILS 0.2 % (0-2); EOSINOPHILS 0.5 % (0-7); HEMATOCRIT 38.6 % (42.0-54.0); HEMOGLOBIN 13.6 g/dL (13.5-17.5); IMMATURE GRANULOCYTES 0.3 % (0-5); MCH 28.8 pg (26.0-34.0); MCHC 35.2 g/dL (31.0-37.0); MCV 81.8 fL (80.0-100.0); MEAN PLATELET VOLUME 9.1 fL (7.4-10.4); MONOCYTES 10.7 % (2-11); NEUTROPHILS 79.3 % (40-80); PLATELET COUNT 228 10x3/uL (130-400); RBC 4.72 10x6/uL (4.20-6.10); RDW 13.6 % (11.5-14.5); WBC 5.9 10x3/uL (4.8-10.8)
--- NOTE | 2019-10-10 09:26 | NUR ---
Nutrition follow-up: Pt strict NPO per speech path Pt has pulled out NGT and refuses to have it replaced at this time. Labs reviewed Wt: 165# RDN following.
--- NOTE | 2019-10-10 14:31 | NUR ---
OT NOTE: PT REMAINS CONFUSED AND LETHARGIC; CONTINUOUSLY REQUESTING TO EAT BUT UNABLE TO REDIRECT; ATTEMPTS TO EXPLAIN WHY HE CANT EAT AT THIS TIME BUT PT DOESNT REMEMBER AFTER A FEW MIN. WILL ATTEMPT THERAPY LATER RUFINA ROGEL OTR/L
--- NOTE | 2019-10-10 16:23 | NUR ---
OT NOTE: PT IS CONFUSED. PT REQUIRED MOD A WITH BED MOB TASKS. [phone] THANK YOU,AGNIESZKA SANDERS
[2019-10-11] VITALS (61 sets, daily range): BP systolic 115–198; BP diastolic 82–197
--- NOTE | 2019-10-11 02:52 | NUR ---
1900-ASSESSMENT COMPLETED. INDEPENDENT WITH REPOSITIONING. DENIES ANY NEEDS. CONFUSION NOTED. 2100-REFUSED CHG BATH. 230- PATIENT PULLED IV OUT. RESTARTED TO RIGHT FOREARM 22G. PATIENT STATES HE IS GOING TO THE CORNER TO GET A BEER. 0000- PULLING AT F/C AND TOOK OUT OF STAT LOCK. EDUCATED ON NOT PULLING AT F/C. 0030- PATIENT TRYING TO STAND UP. BED ALARM ON. PUT BACK INTO BED. PATIENT CONFUSED. YELLING OUT. 0100-PATIENT CONT TO STAND UP. F/C OUT OF STAT LOCK AGAIN. PATIENT PULLING OFF LEADS AND PULSE OX. PATIENT ASKING IF HE CAN HAVE A BEER. INCREASED LABETALOL PER ORDERS. 0200- INCREASED LABETALOL AGAIN PER ORDERS. PATIENT PULLING OFF PULSE OX. UNABLE TO REDIRECT. PATIENT SAID HE WAS GOING OUTSIDE FOR A SMOKE. BED ALARM STILL ON. RESTRAINT ORDER OBTAINED.
[2019-10-11 03:42] LABS: HEMATOCRIT 41.2 % (42.0-54.0); HEMOGLOBIN 14.6 g/dL (13.5-17.5); LYMPHOCYTES 8.7 % (15-50); MCH 29.4 pg (26.0-34.0); MCHC 35.4 g/dL (31.0-37.0); MCV 83.1 fL (80.0-100.0); MEAN PLATELET VOLUME 9.2 fL (7.4-10.4); NEUTROPHILS 81.4 % (40-80); RBC 4.96 10x6/uL (4.20-6.10)
[2019-10-11 03:43] LABS: PLATELET COUNT 301 10x3/uL (130-400); WBC 8.5 10x3/uL (4.8-10.8)
--- NOTE | 2019-10-11 05:00 | NUR ---
PATIENT CONT TO PULL AT F/C WITH RESTRAINTS AND TRYING TO GET UP OOB
--- NOTE | 2019-10-11 06:09 | NUR ---
OUT OF LABETALOL GTT. NONE IN . CALLED PHARMACY, NO ANSWER. NOTIFIED LUIS PALACIOSTIRE FINISHER
--- NOTE | 2019-10-11 06:22 | NUR ---
CALLED PHARMACY AGAIN FOR IV GTT AND NO ANSWER. UNABLE TO GET MEDICATION AT THIS TIME
--- NOTE | 2019-10-11 06:27 | NUR ---
BP 161/87. WITHIN RANGE OF PARAMETERS. STILL OUT OF IV GTT
--- NOTE | 2019-10-11 06:35 | NUR ---
CALLED PAPER CONE MACHINE TENDER, SUZANNE, TO NOTIFY OF PHARMACY NOT ANSWERING AND NO ANSWER
[2019-10-11 06:46] LABS: ALBUMIN 3.1 g/dL (3.4-5.0); ALKALINE PHOSPHATASE 40 U/L (30-120); ALT (SGPT) 39 U/L (10-68); BILIRUBIN - TOTAL 1.11 mg/dL (0.2-1.3); CALC OSMOLALITY 256 mosm/kg (275-300); CALCIUM 8.8 mg/dL (8.5-10.1); CARBON DIOXIDE 26.7 mmol/L (21.0-32.0); CHLORIDE - SERUM 94 mmol/L (98-107); CREATININE - SERUM 0.8 mg/dL (0.6-1.3); GLUCOSE 115 mg/dL (74-106); MAGNESIUM - SERUM 1.7 mg/dL (1.8-2.4); PHOSPHOROUS 3.1 mg/dL (2.5-4.9); POTASSIUM - SERUM 3.6 mmol/L (3.5-5.1); PROTEIN - SERUM 6.6 g/dL (6.4-8.2); SODIUM 128 mmol/L (136-145); UREA NITROGEN 11 mg/dL (7-18); eGFR NON AFRICAN AMERICAN > 90 mL/min (90-120)
--- NOTE | 2019-10-11 07:03 | NUR ---
CALLED PHARMACY AND SPOKE WITH OLY, INFORMED OF LABETALOL OUT.
--- NOTE | 2019-10-11 10:50 | NUR ---
0700 BEDSIDE REPORT RECEIVED WAITING ON TRANSDATE GTT ASSESSMENT COMPLETE
--- NOTE | 2019-10-11 10:52 | NUR ---
0712 RESTARTED TRANDATE INFUSIION AT 0.5MG/HOUR MONITORING BP EVERY 15 MINUTES OR LESS
--- NOTE | 2019-10-11 10:55 | NUR ---
0812 PATIENT ATTEMPTING TO CLIMB OUT OF BED WHILE RESTRAINTED REORIENTED PATIENT AGRIVATION NOTE UNABLE TO UNDERSTAND WHY HE IS HERE ATIVAN 1MG IV GIVEN STATES HE WANTS TO GO HOME AND THAT HIS RIDE IS ON THE WAY
--- NOTE | 2019-10-11 10:58 | NUR ---
0900 IN AND OUT OF SLEEP WITH OCCASSIONAL YELLING OUT
--- NOTE | 2019-10-11 11:33 | NUR ---
1100 DR MARTE ROUNDING ON PATIENT UPDATES PROVIDED SUGGESTED '[facility]' FOR PLACEMENT IT IS A HEAD INJURY FACILITY [place]
--- NOTE | 2019-10-11 17:56 | NUR ---
PT WITH FOOD AND DRINK SPILLED. BATH AND LINENS CHANGED.
--- NOTE | 2019-10-11 18:50 | NUR ---
PT COMMING OUT OF BED. UNABLE TO REDIRECT EASILY. PT AGGITATED. ATIVAN GIVEN PO AND ASSISTED BACK TO BED.
--- NOTE | 2019-10-11 21:38 | NUR ---
1899-ASSESSMENT COMPLETED. PATIENT TRYING TO GET OOB, UNABLE TO REORIENT. CONFUSION NOTED. PATIENT YELLING OUT TO GET A BEER. 1939-NOTED REDNESS, SWELLING, AND WARMTH TO LEFT FOREARM. CALLED DR. YANG WITH NEW ORDERS. 2099-REPOSITIONED IN BED. PATIENT HAD FEET OOB. STATED HE WANTED TO SLEEP. 2129- US STAFF HERE FOR DOPPLER TO LEFT ARM.
--- NOTE | 2019-10-11 23:35 | NUR ---
ASSESSMENT COMPLETED. NO CHANGES SINCE LAST ASSESSMENT
[2019-10-12] VITALS (22 sets, daily range): BP systolic 141–185; BP diastolic 85–116
--- NOTE | 2019-10-12 01:00 | NUR ---
VSS. PATIENT YELLING OUT AT TIMES. ATTEMPTED TO REORIENT. CONFUSION CONT
--- NOTE | 2019-10-12 03:17 | NUR ---
RE-ASSESSMENT COMPLETED. NO CHANGES SINCE LAST ASSESSMENT.
--- NOTE | 2019-10-12 06:00 | NUR ---
EYES CLOSED, EASILY WAKES. INDEPENDENT WITH REPOSITIONING
[2019-10-12 06:37] LABS: ALKALINE PHOSPHATASE 40 U/L (30-120); ALT (SGPT) 35 U/L (10-68); BILIRUBIN - TOTAL 0.93 mg/dL (0.2-1.3); CALC OSMOLALITY 255 mosm/kg (275-300); CALCIUM 8.5 mg/dL (8.5-10.1); CHLORIDE - SERUM 95 mmol/L (98-107); CREATININE - SERUM 0.8 mg/dL (0.6-1.3); GLUCOSE 85 mg/dL (74-106); POTASSIUM - SERUM 3.3 mmol/L (3.5-5.1); PROTEIN - SERUM 6.4 g/dL (6.4-8.2); SODIUM 129 mmol/L (136-145); eGFR NON AFRICAN AMERICAN > 90 mL/min (90-120)
[2019-10-12 06:38] LABS: MAGNESIUM - SERUM 2.3 mg/dL (1.8-2.4); PHOSPHOROUS 4.1 mg/dL (2.5-4.9); UREA NITROGEN 8 mg/dL (7-18)
--- NOTE | 2019-10-12 08:02 | NUR ---
PT RESTING QUIETLY.
--- NOTE | 2019-10-12 11:15 | NUR ---
PT RESTING QUIETLY. AWAKE NOW AND IS EATING BREAKFAST.
--- NOTE | 2019-10-12 11:23 | NUR ---
DR YANG HERE ON ROUNDS. REPORTED HTN.
--- NOTE | 2019-10-12 18:49 | NUR ---
REPORTED REDNESS TO LUE TO DR YANG. ABX ORDERED.
--- NOTE | 2019-10-12 19:20 | NUR ---
pt alert, confused, lungs clear, right fa piv intact and sl, vallejo patent to bsd, vitals stable
--- NOTE | 2019-10-12 21:00 | NUR ---
pt arouses easily, takes po meds without difficulty, will cint to monitor
--- NOTE | 2019-10-12 23:15 | NUR ---
pt resting quietly with no distress
[2019-10-13] VITALS (21 sets, daily range): BP systolic 120–162; BP diastolic 73–123
--- NOTE | 2019-10-13 01:00 | NUR ---
PT SLEEPING WITH NO CHANGE, VITALS STABLE
--- NOTE | 2019-10-13 03:30 | NUR ---
PT AWAKE, VERBALIZES NEEDS, LEFT ARM REMAINS SWOLLEN, VITALS STABLE
--- NOTE | 2019-10-13 08:50 | NUR ---
Nutrition follow-up: Diet advanced to mechanical soft with thin liquids PO intake ~50% of last 2 meals Labs reviewed Wt: 165# Will offer nutritional supplement RDN following
--- NOTE | 2019-10-13 10:26 | NUR ---
DR MARTE AND DR YANG HERE ON ROUNDS THIS AM. L ELBOW SHARRI REMOVED. [address] OF [address] BY DR MARTE. CT HEAD THIS AM DONE.
[2019-10-13 11:31] LABS: BASOPHILS 0.2 % (0-2); EOSINOPHILS 1.2 % (0-7); HEMATOCRIT 36.8 % (42.0-54.0); HEMOGLOBIN 13.2 g/dL (13.5-17.5); IMMATURE GRANULOCYTES 0.3 % (0-5); LYMPHOCYTES 8.2 % (15-50); MCH 29.3 pg (26.0-34.0); MCHC 35.9 g/dL (31.0-37.0); MCV 81.6 fL (80.0-100.0); MEAN PLATELET VOLUME 8.5 fL (7.4-10.4); MONOCYTES 11.8 % (2-11); NEUTROPHILS 78.3 % (40-80); PLATELET COUNT 276 10x3/uL (130-400); RBC 4.51 10x6/uL (4.20-6.10); RDW 13.6 % (11.5-14.5); WBC 5.9 10x3/uL (4.8-10.8)
[2019-10-13 11:41] LABS: CALC OSMOLALITY 261 mosm/kg (275-300); CALCIUM 8.6 mg/dL (8.5-10.1); CARBON DIOXIDE 26.5 mmol/L (21.0-32.0); CHLORIDE - SERUM 98 mmol/L (98-107); CREATININE - SERUM 0.8 mg/dL (0.6-1.3); GLUCOSE 121 mg/dL (74-106); POTASSIUM - SERUM 3.6 mmol/L (3.5-5.1); SODIUM 130 mmol/L (136-145); UREA NITROGEN 12 mg/dL (7-18); eGFR NON AFRICAN AMERICAN > 90 mL/min (90-120)
--- NOTE | 2019-10-13 13:05 | NUR ---
PT WANTED A SNACK. VANILLA PUDDING PROVIDED. BLOOD SUGAR CHECKED.
--- NOTE | 2019-10-13 15:00 | NUR ---
REASSESSMENT COMPLETED. NO ACUTE SIGNS OF DISTRESS NOTED. WILL CONITNUE TO MONITOR
--- NOTE | 2019-10-13 17:00 | NUR ---
DINNER TRAY PROVIDED. PT SITTING UP IN BED EATING TRAY. WILL CONTINUE TO MONTIOR
--- NOTE | 2019-10-13 19:30 | NUR ---
PT AWAKE, VOICES NEEDS, FAMILY MEMBER AT BEDSIDE, ASSESSMENT COMPLETED, RIGHT FA PIV INTACT WITH ABX INFUSING, SANCHEZ PATENT TO BSD, NO DISTRESS NOTED
[2019-10-14] VITALS (8 sets, daily range): BP systolic 124–156; BP diastolic 45–93
[2019-10-14 03:50] LABS: BASOPHILS 0.2 % (0-2); EOSINOPHILS 1.3 % (0-7); HEMATOCRIT 35.4 % (42.0-54.0); HEMOGLOBIN 12.6 g/dL (13.5-17.5); IMMATURE GRANULOCYTES 0.4 % (0-5); LYMPHOCYTES 14.2 % (15-50); MCH 29.1 pg (26.0-34.0); MCHC 35.6 g/dL (31.0-37.0); MCV 81.8 fL (80.0-100.0); MEAN PLATELET VOLUME 8.8 fL (7.4-10.4); MONOCYTES 14.4 % (2-11); NEUTROPHILS 69.5 % (40-80); PLATELET COUNT 278 10x3/uL (130-400); RBC 4.33 10x6/uL (4.20-6.10); RDW 13.4 % (11.5-14.5); WBC 5.2 10x3/uL (4.8-10.8)
[2019-10-14 04:19] LABS: ALBUMIN 2.8 g/dL (3.4-5.0); ALKALINE PHOSPHATASE 49 U/L (30-120); ALT (SGPT) 36 U/L (10-68); BILIRUBIN - TOTAL 0.48 mg/dL (0.2-1.3); CALC OSMOLALITY 258 mosm/kg (275-300); CALCIUM 8.3 mg/dL (8.5-10.1); CHLORIDE - SERUM 96 mmol/L (98-107); CREATININE - SERUM 0.9 mg/dL (0.6-1.3); GLUCOSE 114 mg/dL (74-106); POTASSIUM - SERUM 3.3 mmol/L (3.5-5.1); PROTEIN - SERUM 6.5 g/dL (6.4-8.2); SODIUM 129 mmol/L (136-145); UREA NITROGEN 10 mg/dL (7-18); eGFR NON AFRICAN AMERICAN 90 mL/min (90-120)
--- NOTE | 2019-10-14 11:13 | NUR ---
0700 REPORT RECIEVED AND CARE ASSUMED OF PATIENT.. SEE SHIFT ASSESMENT FOR FINDINGS.. 0730 BREAKFAST SERVED AND PATIENT ASSISTED TO SIDE OF BED... FEEDING SELF.. 0800 REQUEST BEDPAN ... T 0820 LARGE BROWN BM IN BEDPAN.. 0845 ASSISTED BY NURSES TO CHAIR AT THE BEDSIDE.. PT MOVING WELL 0920 LAB IN TO DRAW POTASIUM LEVEL PATIENT IS ASSISTED BACK TO BED.. 0945 PHYSICAL THERAPY HERE TO AMBULATE PATIENT... PT AMBULATED IN THE UNIT 1000 POTASIUM LEVEL 2.7 REPLACMENT POTASIUM GIVEN PO PER LYTE PROTOCOL.. 1100 DAUGHTER CALLED UPDATE GIVEN AND SHE STATES THAT WHEN SHE TALKS TO HER FATHER HE CRIES... PATIENT NOT APPEARING UPSET AT THIS TIME WHEN CHECKING ON HIM.. 1130 LUNCH SERVED AND PT FEEDING SELF..
--- NOTE | 2019-10-14 11:55 | NUR ---
1110 DIET SERVED TO PATIENT... PATIENT REFUSES STATING THAT HE WANTS TUNA SALAD..
--- NOTE | 2019-10-14 14:40 | MORECARE ---
CASE MANAGEMENT DISCHARGE SUMMARY PATIENT: MELISSA ISAAC UNIT: [id number] ADM DATE: 10/06/19 AGE: 64 : 53 SEX: M ROOM/BED: D.2303 AUTHOR: YURIDIA,DOC PHYSICIAN: REFERRING PHYSICIAN: AMY YANG MD DATE OF SERVICE: 10/14/19 Discharge Plan Patient Name: MELISSA ISAAC Facility: [facility]:[place] : 1955 Planned Disposition: Anticipated Discharge Date: Discharge Date: Expected LOS: Initial Reviewer: [email or web address] Initial Review Date: 10/06/2019 Generated: 10/14/19 3:39 pm DCP- Discharge Planning Updated by [email or web address]: Savannah Cruz on 10/14/19 1:[address] CM contacted patient's daughter, per request of S/O Sabas Stone. Hannah Alamo #[phone] ([facility]) gave permission to contact [facility] This will require prior-authorization with patient's insurance. The patient is required to be able to participate in 5-6 hours of Rehab therapy, prior to transfer. Contact: genesis Tolbert @[phone]. DCP- Discharge Planning Updated by [email or web address]: Ania Mathur on 10/08/19 5:[address] Patient Name: MELISSA ISAAC Admission Status: ER Accout number: [id number] Admission Date: 10-06-2019 : 1955 Admission Diagnosis: Attending: AMY YANG Current LOS: 2 Anticipated DC Date: Planned Disposition: Primary Insurance: [facility] Discharge Planning Comments: CM met with patient at bedside after explaining CM role and obtaining verbal consent. Patient requested CM call and speak to his fianc? Sabas Stone [phone]. CM called Sabas and patient lives at home with his two nephews where he is independent with his care and plans to return there upon discharge. CM discussed availability / needs of home health and medical equipment. Uncertain of any discharge needs at this time. Patient will have his family drive him home upon discharge. CM will continue to follow and assist as needed with discharge planning / needs. Travel Registered Nurse Icu: Ania Mathur DCPIA - Discharge Planning Initial Assessment Updated by [email or web address]: Ania Mathur on 10/08/19 6:51 pm * Is the patient Alert and Oriented? Yes * How many steps to enter\exit or inside your home? * PCP MAYE * [facility] * Preadmission Environment Home with Family * ADLs Independent * Equipment None * List name and contact numbers for known caregivers / representatives who currently or will assist patient after discharge: SABAS STONE MARIA DEL CARMEN - [phone] HANNAH CANCINO IN [place] - DAUGHTER - [phone] * Verbal permission to speak to the caregivers and representatives has been obtained from the patient. Yes * Community resources currently utilized None * Additional services required to return to the preadmission environment? No * Can the patient safely return to the preadmission environment? Yes * Has this patient been hospitalized within the prior 30 days at any hospital? No Coverage Notice Reviewer: [id number] Yo Cruz Notice Issued Date-Time: 10/14/2019 14:16 Notice Type: Patient Choice Letter Notice Delivered To: Family Member Relationship to Patient: Daughter Janitorial Account Manager Name: Hannah Alamo Delivery Method: PHONE - Phone Francisca Days: Prior Verbal Notification: Recipient Understood Notice: Yes Recipient Signature: Yes Med Rec Note Co-signed by Attending: Coverage Notice Comment: Daughter Hannah Alamo gave telephone permission for patient to go to [facility]. Last DP export: 10/08/19 5:56 p Patient Name: MELISSA ISAAC Page [id number] at 1440 All edits/amendments must be made on the electronic document DICTATION DATE: 10/14/19 1440 BRIDGE LEVERMAN: STANTON 10/14/19 1440 RPT#: [id number] DC DATE: STATUS: ADM IN [facility] [address] [place] [address] END OF REPORT
--- NOTE | 2019-10-14 15:13 | NUR ---
1230 TUNA SALD BROUGHT FROM KITCHEN TO PATIENT... PT SITTING ON SIDE OF BED FEEDING SELF.. 1330 SLEEPING.. 1500 AWAKE AND REQUEST A CUP OF COFFEE.. PT IS TALKING ON THE PHONE
--- NOTE | 2019-10-14 15:33 | NUR ---
1530 I AND O DONE SANCHEZ CATH REMOVED AT THIS TIME.. URINAL GIEN TO PATIENT .. PT REMAINS IN CHAIR AT BEDSIDE DRINKING A CUP OF COFFEE
--- NOTE | 2019-10-14 15:41 | NUR ---
OT NOTE: PT PERFORMED BED MOB WITH MIN ASSIST; GOOD SITTING BALANCE ON EOB; SIT TO STAND WITH MIN ASSIST; AMB WITH MIN ASSIST X 2 X 75+FT WITH FREQ CUES FOR WALKER MGMT AND SAFETY WITH GAIT. PT TOLERATED SITTING UP IN CHAIR FOR EXT TIME THIS AM PRIOR TO TMT.. PT ASSISTED BACK TO BED WITH MIN ASSIST; MOD ASSIST TO TOMAS SOCKS..CONTINUES WITH CONFUSION RUFINA ROGEL, OTR/L [phone]
--- NOTE | 2019-10-14 15:42 | NUR ---
1538 DR MENARD INFORMED OF PATIENT ELBOW PAIN AND SWELLING ORDERS RECIEVED..
--- NOTE | 2019-10-14 16:33 | NUR ---
OT NOTE: PT COMPLETED SUPINE TO SIT WITH SBA/CGA. PT COMPLETED SIT TO STAND WITH CGA. PT COMPLETED HAND HYGIENE WITH SETUP. [phone] THANK YOU,AGNIESZKA SANDERS
--- NOTE | 2019-10-14 17:37 | NUR ---
0447 DR MARTE CALLED FOR PATIENTS CONTINUED C/O PAIN IN ELBOW .. ORTHO CONSULT RECIEVED AND PAIN MED MORPHINE 2 MG Q 2 PRN.. PATIENT INFORMED
--- NOTE | 2019-10-14 18:04 | NUR ---
1800 REPORT CALLED TO FLOOR AND PT TRANSPORTED TO ROOM 2123 VIA WHEELCHAIR
--- NOTE | 2019-10-14 18:45 | MORECARE ---
CASE MANAGEMENT DISCHARGE SUMMARY PATIENT: MELISSA ISAAC UNIT: [id number] ADM DATE: 10/06/19 AGE: 64 : 51 SEX: M ROOM/BED: D.2124 AUTHOR: YURIDIA,DOC PHYSICIAN: REFERRING PHYSICIAN: AMY YANG MD DATE OF SERVICE: 10/14/19 Discharge Plan Patient Name: MELISSA ISAAC Facility: [facility]:[place] : 1955 Planned Disposition: Anticipated Discharge Date: Discharge Date: Expected LOS: Initial Reviewer: [email or web address] Initial Review Date: 10/06/2019 Generated: 10/14/19 7:45 pm Comments DCP- Discharge Planning Updated by [email or web address]: Savannah Cruz on 10/14/19 5:[address] CM contacted patient's daughter, per request of S/O Sabas Stone. Hannah Alamo #[phone] ([facility]) gave permission to contact [facility]. Per patient's daughter, Hannah Alamo, she is in agreement to this. This will require prior-authorization with patient's insurance. The patient is required to be able to participate in 5-6 hours of Rehab therapy, prior to transfer. Contact: genesis oTlbert @[phone]. DCP- Discharge Planning Updated by [email or web address]: Ania Mathur on 10/08/19 5:[address] Patient Name: MELISSA ISAAC Admission Status: ER Accout number: [id number] Admission Date: 10-06-2019 : 1955 Admission Diagnosis: Attending: AMY YANG Current LOS: 2 Anticipated DC Date: Planned Disposition: [facility] Discharge Planning Comments: CM met with patient at bedside after explaining CM role and obtaining verbal consent. Patient requested CM call and speak to his fianc? Sabas Stone [phone]. CM called Sabas and patient lives at home with his two nephews where he is independent with his care and plans to return there upon discharge. CM discussed availability / needs of home health and medical equipment. Uncertain of any discharge needs at this time. Patient will have his family drive him home upon discharge. CM will continue to follow and assist as needed with discharge planning / needs. Gelatin Dynamite Packing Operator: Ania RUVALCABA - Discharge Planning Initial Assessment Updated by [email or web address]: Ania Mathur on 10/08/19 6:51 pm * Is the patient Alert and Oriented? Yes * How many steps to enter\exit or inside your home? * PCP MAYE * [facility] * Preadmission Environment Home with Family * ADLs Independent * Equipment None * List name and contact numbers for known caregivers / representatives who currently or will assist patient after discharge: SABAS STONE - MARIA DEL CARMEN - [phone] HANNAH CANCINO IN [place] - DAUGHTER - [phone] * Verbal permission to speak to the caregivers and representatives has been obtained from the patient. Yes * Community resources currently utilized None * Additional services required to return to the preadmission environment? No * Can the patient safely return to the preadmission environment? Yes * Has this patient been hospitalized within the prior 30 days at any hospital? No Coverage Notice Reviewer: [email or web address] Yo Cruz Notice Issued Date-Time: 10/14/2019 14:16 Notice Type: Patient Choice Letter Notice Delivered To: Family Member Relationship to Patient: Daughter Network Technician Name: Hannah Alamo Delivery Method: PHONE - Phone Francisca Days: Prior Verbal Notification: Recipient Understood Notice: Yes Recipient Signature: Yes Med Rec Note Co-signed by Attending: Coverage Notice Comment: Daughter Hannah Alamo gave telephone permission for patient to go to [facility]. Last DP export: 10/14/19 1:40 p Patient Name: MELISSA ISAAC Page [id number] at 1845 All edits/amendments must be made on the electronic document DICTATION DATE: 10/14/191844 ZINC FURNACE CHARGER: STANTON 10/14/191844 RPT#: [id number] [place] DATE: STATUS: ADM IN [facility] [address] [place] [address] END OF REPORT
--- NOTE | 2019-10-14 19:16 | NUR ---
CARDENE GTT ORDER DC'D PER AMADEO ELLIOTT. PATIENT HAS NOT BEEN ON CARDENE AND MED WAS NOT DC'D
[2019-10-15] VITALS: BP 124/75
--- NOTE | 2019-10-15 02:40 | NUR ---
I have reviewed this patient and I concur with the Shift Assessment completed by the Licensed Practical Nurse today this shift.
[2019-10-15 04:00] VITALS: BP 136/89
[2019-10-15 06:50] LABS: BASOPHILS 0.4 % (0-2); EOSINOPHILS 1.5 % (0-7); HEMATOCRIT 37.4 % (42.0-54.0); HEMOGLOBIN 13.3 g/dL (13.5-17.5); IMMATURE GRANULOCYTES 0.6 % (0-5); LYMPHOCYTES 12.7 % (15-50); MCH 29.3 pg (26.0-34.0); MCHC 35.6 g/dL (31.0-37.0); MCV 82.4 fL (80.0-100.0); MEAN PLATELET VOLUME 9.1 fL (7.4-10.4); MONOCYTES 13.6 % (2-11); NEUTROPHILS 71.2 % (40-80); PLATELET COUNT 294 10x3/uL (130-400); RBC 4.54 10x6/uL (4.20-6.10); RDW 13.7 % (11.5-14.5); WBC 5.4 10x3/uL (4.8-10.8)
[2019-10-15 06:55] LABS: ALBUMIN 2.9 g/dL (3.4-5.0); ALKALINE PHOSPHATASE 44 U/L (30-120); ALT (SGPT) 33 U/L (10-68); BILIRUBIN - TOTAL 0.47 mg/dL (0.2-1.3); CALC OSMOLALITY 258 mosm/kg (275-300); CALCIUM 8.9 mg/dL (8.5-10.1); CARBON DIOXIDE 25.3 mmol/L (21.0-32.0); CHLORIDE - SERUM 97 mmol/L (98-107); CREATININE - SERUM 0.7 mg/dL (0.6-1.3); GLUCOSE 97 mg/dL (74-106); POTASSIUM - SERUM 3.7 mmol/L (3.5-5.1); PROTEIN - SERUM 6.9 g/dL (6.4-8.2); SODIUM 130 mmol/L (136-145); VANCOMYCIN - TROUGH 11.1 ug/mL (10.0-20.0); eGFR NON AFRICAN AMERICAN > 90 mL/min (90-120)
[2019-10-15 06:56] LABS: UREA NITROGEN 7 mg/dL (7-18)
--- NOTE | 2019-10-15 07:24 | NUR ---
ASSESSMENT DONE. DENIES NEEDS
--- NOTE | 2019-10-15 08:45 | MORECARE ---
CASE MANAGEMENT DISCHARGE SUMMARY PATIENT: MELISSA ISAAC UNIT: [id number] ADM DATE: 10/06/19 AGE: 64 : 51 SEX: M ROOM/BED: D.2124 AUTHOR: YURIDIA,DOC PHYSICIAN: REFERRING PHYSICIAN: AMY YANG MD DATE OF SERVICE: 10/15/19 Discharge Plan Patient Name: MELISSA ISAAC Facility: [facility]:[place] : 1955 Planned Disposition: Anticipated Discharge Date: Discharge Date: Expected LOS: Initial Reviewer: [email or web address] Initial Review Date: 10/06/2019 Generated: 10/15/19 9:45 am Comments DCP- Discharge Planning Updated by [email or web address]: Savannah Cruz on 10/15/19 7:[address] CM contacted patient's daughter, per request of S/O Sabas Stone. Hannah Alamo #[phone] ([facility]) gave permission to contact [facility]. Per patient's daughter, Hannah Alamo, she is in agreement to this. This will require prior-authorization with patient's insurance. The patient is required to be able to participate in 5-6 hours of Rehab therapy, prior to transfer. Contact: Eileen Tolbert @[phone]. DCP- Discharge Planning Updated by [email or web address]: Ania Mathur on 10/08/19 5:[address] Patient Name: MELISSA ISAAC Admission Status: ER Accout number: [id number] Admission Date: 10-06-2019 : 1955 Admission Diagnosis: Attending: AMY YANG Current LOS: 2 Anticipated DC Date: Planned Disposition: Primary [facility] Discharge Planning Comments: CM met with patient at bedside after explaining CM role and obtaining verbal consent. Patient requested CM call and speak to his fianc? Sabas Stone [phone]. CM called Sabas and patient lives at home with his two nephews where he is independent with his care and plans to return there upon discharge. CM discussed availability / needs of home health and medical equipment. Uncertain of any discharge needs at this time. Patient will have his family drive him home upon discharge. CM will continue to follow and assist as needed with discharge planning / needs. Analytical Research Chemist: Ania RUVALCABA - Discharge Planning Initial Assessment Updated by [email or web address]: Ania Mathur on 10/08/19 6:51 pm * Is the patient Alert and Oriented? Yes * How many steps to enter\exit or inside your home? * PCP MAYE * [facility] * Preadmission Environment Home with Family * ADLs Independent * Equipment None * List name and contact numbers for known caregivers / representatives who currently or will assist patient after discharge: SABAS STONE - MARIA DEL CARMEN - [phone] HANNAH CANCINO IN [place] - DAUGHTER - [phone] * Verbal permission to speak to the caregivers and representatives has been obtained from the patient. Yes * Community resources currently utilized None * Additional services required to return to the preadmission environment? No * Can the patient safely return to the preadmission environment? Yes * Has this patient been hospitalized within the prior 30 days at any hospital? No Coverage Notice Reviewer: [id number] Yo Cruz Notice Issued Date-Time: 10/14/2019 14:16 Notice Type: Patient Choice Letter Notice Delivered To: Family Member Relationship to Patient: Daughter Set O Type Operator Name: Hannah Alamo Delivery Method: PHONE - Phone Francisca Days: Prior Verbal Notification: Recipient Understood Notice: Yes Recipient Signature: Yes Med Rec Note Co-signed by Attending: Coverage Notice Comment: Daughter Hannah Alamo gave telephone permission for patient to go to [facility]. Last DP export: 10/14/19 5:45 p Patient Name: MELISSA ISAAC Page [id number] at 0845 All edits/amendments must be made on the electronic document DICTATION DATE: 10/15/19 0845 GAGE DESIGNER: STANTON 10/15/19 0845 RPT#: [id number] [place] DATE: STATUS: ADM IN [facility] [address] [place] [address] END OF REPORT
[2019-10-15 09:25] VITALS: BP 138/77
--- NOTE | 2019-10-15 09:27 | NUR ---
I have reviewed this patient and I concur with the Shift Assessment completed by the Licensed Practical Nurse today this shift.
[2019-10-15 12:03] LABS: BASOPHILS 0.2 % (0-2); EOSINOPHILS 1.4 % (0-7); HEMATOCRIT 36.7 % (42.0-54.0); HEMOGLOBIN 13.1 g/dL (13.5-17.5); IMMATURE GRANULOCYTES 0.2 % (0-5); MCH 29.4 pg (26.0-34.0); MCHC 35.7 g/dL (31.0-37.0); MCV 82.3 fL (80.0-100.0); MEAN PLATELET VOLUME 8.4 fL (7.4-10.4); MONOCYTES 12.6 % (2-11); NEUTROPHILS 74.6 % (40-80); PLATELET COUNT 279 10x3/uL (130-400); RBC 4.46 10x6/uL (4.20-6.10); RDW 13.5 % (11.5-14.5); WBC 5.6 10x3/uL (4.8-10.8)
[2019-10-15 12:24] LABS: CALCIUM 8.6 mg/dL (8.5-10.1); CHLORIDE - SERUM 98 mmol/L (98-107); CREATININE - SERUM 0.8 mg/dL (0.6-1.3); POTASSIUM - SERUM 3.9 mmol/L (3.5-5.1); SODIUM 131 mmol/L (136-145); eGFR NON AFRICAN AMERICAN > 90 mL/min (90-120)
[2019-10-15 12:25] LABS: CALC OSMOLALITY 264 mosm/kg (275-300); GLUCOSE 145 mg/dL (74-106); UREA NITROGEN 10 mg/dL (7-18)
[2019-10-15 13:15] VITALS: BP 135/93
--- NOTE | 2019-10-15 13:38 | NUR ---
OT NOTE: PT INITIALLY VERY LETHARGIC. HOWEVER, ONCE AWAKENED, PT WAS READY TO GET UP OUT OF BED; BED MOB WITH SBA; VERY IMPULSIVE; DECREASED SAFETY AWARENESS..ABLE TO AMB FROM BED TO BATHROOM WITH WALKER AND MIN ASSIST; PERFORMED TOILETING WITH CGA FOR BALANCE. AMB INTO HALLWAY WITH USE OF WALKER. PT IS AWARE THAT HE IS IN HOSPITAL BUT UNABLE TO REMEMBER WHICH ONE. CONTINUALLY ASKING TO GO OUTSIDE AND SMOKE AND DRINK. POOR HISTORIAN. PT IS ABLE TO INITIATE SIMPLE NEEDS, IE GOING TO BATHROOM..EATING.. HOWEVER, HIGHER LEVEL ACT, HE LACKS INITIATION AND IS UNABLE TO PROBLEM SOLVE FOR NEEDS. UNSAFE TO RETURN HOME WITHOUT ASSIST. RUFINA ROGEL, OTR/L [phone]
--- NOTE | 2019-10-15 16:16 | NUR ---
WITHOUT CHANGES OR DISTRESS NOTED AT THIS TIME. DENIES NEEDS
--- NOTE | 2019-10-15 16:24 | NUR ---
OT NOTE: PT REQUIRED MOD VERBAL AND MIN TACTILE CUES FOR SEQUENCING STEPS OF FUNCTIONAL TASKS. PT IS CONFUSED. PT REQUIRED MIN A FOR SUPINE TO SIT AT EOB SECONDARY TO DIFFICULTY PROCESSING STEPS NEEDED TO ACCOMPLISH TASK. PT COMPLETED EOB SITTING WITH MIN A FOR INCREASED SAFETY. PT COMPLETED FACE HYGIENE AT EOB WITH MIN A FOR TASK COMPLETION. [phone] THANK YOU,AGNIESZKA SANDERS
[2019-10-15 17:26] VITALS: BP 144/78
--- NOTE | 2019-10-15 19:37 | NUR ---
IV TO RIGHT AC OUT, TIP INTACT, IV RESITED TO LEFT HAND, 22 GUAGE, PT TOLERTED WELL.
[2019-10-15 20:00] VITALS: BP 148/84
[2019-10-16] VITALS: BP 154/91
--- NOTE | 2019-10-16 00:54 | NUR ---
RESTING WITH EYES CLOSED, RESPERATIONS EVEN, NO S/S DISTRESS NOTED.
[2019-10-16 04:00] VITALS: BP 147/91
[2019-10-16 06:08] LABS: BASOPHILS 0.3 % (0-2); EOSINOPHILS 1.4 % (0-7); HEMATOCRIT 37.2 % (42.0-54.0); HEMOGLOBIN 13.3 g/dL (13.5-17.5); IMMATURE GRANULOCYTES 0.2 % (0-5); LYMPHOCYTES 14.9 % (15-50); MCH 29.2 pg (26.0-34.0); MCHC 35.8 g/dL (31.0-37.0); MCV 81.6 fL (80.0-100.0); MEAN PLATELET VOLUME 8.6 fL (7.4-10.4); MONOCYTES 9.6 % (2-11); NEUTROPHILS 73.6 % (40-80); PLATELET COUNT 283 10x3/uL (130-400); RBC 4.56 10x6/uL (4.20-6.10); RDW 13.4 % (11.5-14.5); WBC 5.7 10x3/uL (4.8-10.8)
[2019-10-16 06:32] LABS: ALBUMIN 2.9 g/dL (3.4-5.0); ALKALINE PHOSPHATASE 49 U/L (30-120); BILIRUBIN - TOTAL 0.38 mg/dL (0.2-1.3); CALC OSMOLALITY 259 mosm/kg (275-300); CALCIUM 8.7 mg/dL (8.5-10.1); CARBON DIOXIDE 27.2 mmol/L (21.0-32.0); CHLORIDE - SERUM 98 mmol/L (98-107); CREATININE - SERUM 0.7 mg/dL (0.6-1.3); GLUCOSE 118 mg/dL (74-106); POTASSIUM - SERUM 3.7 mmol/L (3.5-5.1); PROTEIN - SERUM 6.3 g/dL (6.4-8.2); SODIUM 130 mmol/L (136-145); UREA NITROGEN 8 mg/dL (7-18); eGFR NON AFRICAN AMERICAN > 90 mL/min (90-120)
[2019-10-16 06:33] LABS: ALT (SGPT) 43 U/L (10-68)
[2019-10-16 07:04] LABS: INR 1.2 (0.85-1.17); PROTIME 15.1 SECONDS (11.6-15.0)
[2019-10-16 07:05] LABS: APTT 33.6 SECONDS (22.8-39.4)
--- NOTE | 2019-10-16 07:10 | NUR ---
REPORT RECEIVED FROM ENTERTAINMENT MUSICIAN AND PATIENT CARE ASSUMED. SAADT LAYING IN BED IN RT SIDE WITH EYES CLOSED AND BREATHING EVENLY. PATIENT IS NPO FOR POSSIBLE CRANIOTOMY TODAY. REPORTED [place] ENTERTAINMENT MUSICIAN, THERE IS SOME CONFUSION TO WHETHER SURGERY IS GOING TO TAKE PLACE. IT IS REPORTED THAT ATTEMPTS HAVE BEEN MADE TO SPEAK WITH DR MARTE BUT TO NO AVAIL. WILL CONTINUE WITH PLAN OF CARE. SR UP X 2 BED IN LOW POSITION AND CALL LIGHT IN REACH.
--- NOTE | 2019-10-16 08:19 | NUR ---
CONFIRMED PATIENT IS SCHEDULED FOR LAURA HOLE SURGERY THIS AFTERNOON. PATIENT UNABLE TO SIGN FORM DUE TO MENTAL CONFUSIION. SPOKE WITH NEXT OF KIN, AURELIANO AVERY, AND RECEIVED VERBAL CONSENT WITNESSED BY JOSSIE LY LPN. WILL CONTINUE JEANA MCCABE. SR U P X 2 BED IN LOW POSITION AND CALL LIGHT IN REACH.
[2019-10-16 08:25] VITALS: BP 144/90
--- NOTE | 2019-10-16 10:02 | NUR ---
PATIENT SITTING UP IN BED AWAKE, ALERT AND ORIENTED TO NAME ONLY. PATIENT IS STABLE AND VSS. PATIENT REMAINS NPO FOR SURGERY. PATIENT HAD HIBICLENS BATH, GOWN AND LINEN CHANGE. ASSESSMENT COMPLETED. WILL CONTINUE TO MONITOR. SR UP X 2 BED IN LOW POSTION AND CALL LIGHT IN REACH.
--- NOTE | 2019-10-16 12:00 | NUR ---
PATIENT IS STABLE AND VSS. PATIENT PREOP GIVEN PER BANNER ORDERS AND CALL FROM SURGERY TEAM. PATIENT TO SURGERY VIA HOSPITAL BED ACCOMPANIED BY HOSPITAL STAFF.
--- NOTE | 2019-10-16 13:08 | NUR ---
Nutrition Follow-up: NPO for deborah hole today. Otherwise, fair PO intake; ate 50% x 3 meals yesterday. Wt: 170.8# (10/13); 165.3# (10/05) No BMs recorded Labs noted: Na 130, Glu 118, Alb 2.9 Meds noted: Floranex, electrolyte protocol -Rec resume diet following surgery as medically feasible. -Monitor wt. -RD following.
--- NOTE | 2019-10-16 14:25 | NUR ---
1420 OPA DISCONTINUED. PATIENT MAINTAINING PATENT AIRWAY
--- NOTE | 2019-10-16 15:15 | NUR ---
PATIENT RETURNED FROM SURGERY VIA HOSPITAL BED ACCOMPANIED BY HOSPITAL STAFF. PATIENT IS AWAKE, ALERT AND REQUESTING FOOD AND COFFEE. PATIENT DENIES ANY PAIN. VSS. FAMILY MEMBER AT BS. WILL CONTINUE TO MONITOR. SR UPX 2 BED IN LOW POSITION AND CALL LIGHT IN REACH.
[2019-10-16 15:38] VITALS: BP 152/88
--- NOTE | 2019-10-16 15:56 | MORECARE ---
CASE MANAGEMENT DISCHARGE SUMMARY PATIENT: MELISSA ISAAC UNIT: [id number] ADM DATE: 10/06/19 AGE: 64 : 53 SEX: M ROOM/BED: D.2124 AUTHOR: YURIDIA,DOC PHYSICIAN: REFERRING PHYSICIAN: AMY YANG MD DATE OF SERVICE: 10/16/19 Discharge Plan Patient Name: MELISSA ISAAC Facility: [facility]:[place] : 1955 Planned Disposition: Anticipated Discharge Date: Discharge Date: Expected LOS: Initial Reviewer: [email or web address] Initial Review Date: 10/06/2019 Generated: 10/16/19 4:55 pm DCP- Discharge Planning Updated by [email or web address]: Beckie Jacobs on 10/16/19 2:[address] Patient Name: MELISSA ISAAC Encounter No: [id number] : 1955 Primary Insurance: [employer] Anticipated DC Date: Planned Disposition: External Planned Provider: : DCP follow-up note: CM contacted [facility] for follow up. Left message and will await return call. Patient had deborah hole today. Case management will follow and assist as needed. Beckie Jacobs MSN,RN,CM DCP- Discharge Planning Updated by [email or web address]: Savannah Cruz on 10/15/19 7:[address] CM contacted patient's daughter, per request of S/O Sabas Stone. Rox Alamo #[phone] ([facility]) gave permission to contact [facility]. Per patient's daughter, Rox Alamo, she is in agreement to this. This will require prior-authorization with patient's insurance. The patient is required to be able to participate in 5-6 hours of Rehab therapy, prior to transfer. Contact: Eileen Tolbert @[phone]. DCP- Discharge Planning Updated by [email or web address]: Ania Mathur on 10/08/19 5:[address] Patient Name: MELISSA ISAAC Admission Status: ER Accout number: [id number] Admission Date: 10-06-2019 : 1955 Admission Diagnosis: Attending: AMY YANG Current LOS: 2 Anticipated DC Date: Planned Disposition: Primary Insurance: [employer] Discharge Planning Comments: CM met with patient at bedside after explaining CM role and obtaining verbal consent. Patient requested CM call and speak to his fimarcellus Stone [phone]. CM called Sabas and patient lives at home with his two nephews where he is independent with his care and plans to return there upon discharge. CM discussed availability / needs of home health and medical equipment. Uncertain of any discharge needs at this time. Patient will have his family drive him home upon discharge. CM will continue to follow and assist as needed with discharge planning / needs. Marketing Professional: Ania Mathur DCPIA - Discharge Planning Initial Assessment Updated by [email or web address]: Ania Mathur on 10/08/19 6:51 pm * Is the patient Alert and Oriented? Yes * How many steps to enter\exit or inside your home? * PCP MAYE * [facility]acy [facility] * Preadmission Environment Home with Family * ADLs Independent * Equipment None * List name and contact numbers for known caregivers / representatives who currently or will assist patient after discharge: SABAS STONE - MARIA DEL CARMEN - [phone] ROX CANCINO IN [place] - DAUGHTER - [phone] * Verbal permission to speak to the caregivers and representatives has been obtained from the patient. Yes * Community resources currently utilized None * Additional services required to return to the preadmission environment? No * Can the patient safely return to the preadmission environment? Yes * Has this patient been hospitalized within the prior 30 days at any hospital? No Coverage Notice Reviewer: [email or web address] Yo Cruz Notice Issued Date-Time: 10/14/2019 14:16 Notice Type: Patient Choice Letter Notice Delivered To: Family Member Relationship to Patient: Daughter Pile Driver Operator Barge Mounted Name: oRx Alamo Delivery Method: PHONE - Phone Francisca Days: Prior Verbal Notification: Recipient Understood Notice: Yes Recipient Signature: Yes Med Rec Note Co-signed by Attending: Coverage Notice Comment: Daughter Rox Alamo gave telephone permission for patient to go to [facility]. Last DP export: 10/15/19 7:45 a Patient Name: MELISSA ISAAC Page [id number] at 1556 All edits/amendments must be made on the electronic document DICTATION DATE: 10/16/191554 MINGLE OPERATOR: STANTON 10/16/19 155 RPT#: [id number] DC DATE: STATUS: ADM IN [facility] [address] [place] [address] END OF REPORT
--- NOTE | 2019-10-16 16:07 | MORECARE ---
CASE MANAGEMENT DISCHARGE SUMMARY PATIENT: MELISSA ISAAC UNIT: [id number] ADM DATE: 10/06/19 AGE: 64 : 51 SEX: M ROOM/BED: D.2124 AUTHOR: YURIDIA,DOC PHYSICIAN: REFERRING PHYSICIAN: AMY YANG MD DATE OF SERVICE: 10/16/19 Discharge Plan Patient Name: MELISSA ISAAC Facility: [facility]:[place] : 1955 Planned Disposition: Anticipated Discharge Date: Discharge Date: Expected LOS: Initial Reviewer: [email or web address] Initial Review Date: 10/06/2019 Generated: 10/16/19 5:07 pm DCP- Discharge Planning Updated by [email or web address]: Beckie Jacobs on 10/16/19 2:[address] Patient Name: MELISSA ISAAC Encounter No: [id number] : 1955 Primary Insurance: [employer] Anticipated DC Date: Planned Disposition: External Planned Provider: : DCP follow-up note: CM contacted [facility] for follow up. Left message and will await return call. Patient had deborah hole today. Case management will follow and assist as needed. Beckie Jacobs MSN,RN,CM DCP- Discharge Planning Updated by [email or web address]: Savannah Cruz on 10/15/19 7:[address] CM contacted patient's daughter, per request of S/O Sabas Stone. Rox Alamo #[phone] ([facility]) gave permission to contact [facility]. Per patient's daughter, Rox Alamo, she is in agreement to this. This will require prior-authorization with patient's insurance. The patient is required to be able to participate in 5-6 hours of Rehab therapy, prior to transfer. Contact: Eileen Tolbert @[phone]. DCP- Discharge Planning Updated by [email or web address]: Ania Mathur on 10/08/19 5:[address] Patient Name: MELISSA ISAAC Admission Status: ER Accout number: [id number] Admission Date: 10-06-2019 : 1955 Admission Diagnosis: Attending: AMY YANG Current LOS: 2 Anticipated DC Date: Planned Disposition: Primary Insurance: [employer] Discharge Planning Comments: CM met with patient at bedside after explaining CM role and obtaining verbal consent. Patient requested CM call and speak to his finu? Sabas Stone [phone]. CM called Sabas and patient lives at home with his two nephews where he is independent with his care and plans to return there upon discharge. CM discussed availability / needs of home health and medical equipment. Uncertain of any discharge needs at this time. Patient will have his family drive him home upon discharge. CM will continue to follow and assist as needed with discharge planning / needs. Hoisting Engine Operator: Ania Mathur DCPIA - Discharge Planning Initial Assessment Updated by [email or web address]: Ania Mathur on 10/08/19 6:51 pm * Is the patient Alert and Oriented? Yes * How many steps to enter\exit or inside your home? * PCP MAYE * [facility] * Preadmission Environment Home with Family * ADLs Independent * Equipment None * List name and contact numbers for known caregivers / representatives who currently or will assist patient after discharge: SABAS STONE - MARIA DEL CARMEN - [phone] ROX CANCINO IN [place] - DAUGHTER - [phone] * Verbal permission to speak to the caregivers and representatives has been obtained from the patient. Yes * Community resources currently utilized None * Additional services required to return to the preadmission environment? No * Can the patient safely return to the preadmission environment? Yes * Has this patient been hospitalized within the prior 30 days at any hospital? No Coverage Notice Reviewer: [id number] Yo Cruz Notice Issued Date-Time: 10/14/2019 14:16 Notice Type: Patient Choice Letter Notice Delivered To: Family Member Relationship to Patient: Daughter Numerologist Name: Rox Alamo Delivery Method: PHONE - Phone Francisca Days: Prior Verbal Notification: Recipient Understood Notice: Yes Recipient Signature: Yes Med Rec Note Co-signed by Attending: Coverage Notice Comment: Daughter Rox Alamo gave telephone permission for patient to go to [facility]. Last DP export: 10/16/19 2:56 p Patient Name: MELISSA IASAC Page [phone] at 1607 All edits/amendments must be made on the electronic document DICTATION DATE: 10/16/191606 NAVAL AIRCREWMAN: STANTON 10/16/191606 RPT#: [id number] DC DATE: STATUS: ADM IN [facility] [address] [place] [address] END OF REPORT
--- NOTE | 2019-10-16 16:48 | NUR ---
PATIENT LAYING IN BED ON LT SIDE WITH HOB ELEVATED 30 DEGREES. PATIENT HAS EYES CLOSED AND BREATHING EVENLY. NO SWELLING, BRUISING, BLEEDING OR HEMATOMA NOTED TO RT UPPER FOREHEAD DRSG. VSS. WILL CONTINUE WITH PLAN OF CARE. SR UP X 2 BED IN LOW POSITION AND CALL LIGHT IN REACH.
--- NOTE | 2019-10-16 19:30 | NUR ---
PT IN BED, AAO X 1, RESP EVEN AND UNLABORED, NO DISTRESS NOTED, CL IN REACH, SR UP X 2.
--- NOTE | 2019-10-16 19:30 | NUR ---
PT IN BED, AAO X 3, RESP EVEN AND UNLABORED. NO DISTRESS NOTED, CL IN REACH, SR UP X 2.
[2019-10-16 20:00] VITALS: BP 134/80
--- NOTE | 2019-10-17 01:40 | NUR ---
I have reviewed this patient and I concur with the Shift Assessment completed by the Licensed Practical Nurse today this shift.
[2019-10-17 04:00] VITALS: BP 138/78
[2019-10-17 05:00] LABS: BASOPHILS 0 % (0-2); EOSINOPHILS 0 % (0-7); HEMATOCRIT 36.6 % (42.0-54.0); IMMATURE GRANULOCYTES 0.2 % (0-5); LYMPHOCYTES 3.6 % (15-50); MCH 28.9 pg (26.0-34.0); MCHC 35.5 g/dL (31.0-37.0); MCV 81.3 fL (80.0-100.0); MEAN PLATELET VOLUME 8.6 fL (7.4-10.4); MONOCYTES 3.9 % (2-11); NEUTROPHILS 92.3 % (40-80); PLATELET COUNT 315 10x3/uL (130-400); RDW 13.2 % (11.5-14.5)
[2019-10-17 05:05] LABS: WBC 8.5 10x3/uL (4.8-10.8)
[2019-10-17 05:15] LABS: ALBUMIN 2.9 g/dL (3.4-5.0); ALKALINE PHOSPHATASE 41 U/L (30-120); ALT (SGPT) 47 U/L (10-68); BILIRUBIN - TOTAL 0.43 mg/dL (0.2-1.3); CALCIUM 9.1 mg/dL (8.5-10.1); CARBON DIOXIDE 26.4 mmol/L (21.0-32.0); CHLORIDE - SERUM 94 mmol/L (98-107); POTASSIUM - SERUM 3.9 mmol/L (3.5-5.1); PROTEIN - SERUM 7.1 g/dL (6.4-8.2); SODIUM 126 mmol/L (136-145); UREA NITROGEN 10 mg/dL (7-18); VANCOMYCIN - TROUGH 18.1 ug/mL (10.0-20.0); eGFR NON AFRICAN AMERICAN 90 mL/min (90-120)
[2019-10-17 05:16] LABS: CALC OSMOLALITY 255 mosm/kg (275-300); CREATININE - SERUM 0.9 mg/dL (0.6-1.3); GLUCOSE 167 mg/dL (74-106)
--- NOTE | 2019-10-17 07:10 | NUR ---
REPORT RECEIVED FROM BUSINESS SYSTEMS ADMINISTRATOR AND PATIENT CARE ASSUMED. PATIENT LAYING IN BED ON BACK WITH HOB ELEVATGED 30 DEGREES. PATIENT IS AWAKE, ALERT AND ORIENTED TO NAME ONLY. PATIENT IS STABLE AND VSS. PATIENT DENIES ANY NEEDS OR PAIN. WILL CONTINUE WITH PLAN OF CARE. SR UPX 2 BED IN LOW POSITION AND CALL LIGHT IN REACH.
--- NOTE | 2019-10-17 12:45 | NUR ---
OT NOTE: PT ASLEEP BUT EASILY AROUSED. WANTS TO GO OUTSIDE BUT EASILY REDIRECTED. MIN ASSIST TO TOMAS SOCKS; MIN ASSIST WITH TOILETING DUE TO BALANCE; PT WAS TANGLED UP IN GOWN AND REUQIRED EXT ASSIST WITH THIS.. NO INITIATION TO FIX THE PROBLEM; ABLE TO STAND AT SINK AND WASH HANDS WITH CGA. CREDIT CONSULTANT FOR AMB IN ROOM; AMB INTO HALLWAY WITH CREDIT CONSULTANT X 2..GAIT REMAINS UNSTEADY.. PT AMBULATES WITH EXTENSIVE EXTERNAL HIP ROTATION BILATERALY.. THIS IS PROBABLY NORMAL GAIT PATTERN FOR HIM, BUT DOES EFFECT BALANCE. UNABLE TO CORRECT WITH VERBAL CUES. RUFINA ROGEL, OTR/L [phone]
[2019-10-17 13:21] VITALS: BP 107/62
--- NOTE | 2019-10-17 14:57 | NUR ---
PATIENT HAS REMOVED THE TLEMETRY UNIT FOR THE SECOND TIME. PATIENT STTES HE DONT LIKE THAT THING AND HE AINT WEARING IT. SPENT SEVERAL MINUTES WITH PATIENT EDUCATIONG REGARDING BENEFITS BUT SAADT ADAMANTLY REFUSES TO CONTINUE TO WEAR. WILL CONTINUE TO MONITOR. SR UP X 2 BED IN LOW POSITION AND CALL LIGHT IN REACH.
--- NOTE | 2019-10-17 16:41 | NUR ---
OT NOTE: PT EXHIBITED POOR SAFETY AWARENESS. PT REQUIRED SBA/CGA WITH DYNAMIC BALANCE ACTIVITIES WHILE SITTING AND STANDING. PT COMPLETED ADL MOB WITH SBA/CGA. PT COMPLETED TOILETING TASKS WITH MIN/MOD A FOR HYGIENE. PT REQUIRED MOD A FOR CLOTHING MANAGEMENT. PT HAD GOWN PARTIALLY ON. PT EXHIBITED THE NEED FOR MOD VERBAL CUES FOR COMPLETING TASKS . PT IS EASILY DISTRACTED. [phone] SUZANNE LUCERO COTA
[2019-10-17 17:31] VITALS: BP 124/67
--- NOTE | 2019-10-17 20:00 | NUR ---
INITIAL ROUNDS AND ASSESSMENT COMPLETED. PT ALERT/CONFUSED. ARGUMENTATIVE. NOT WEARING CLOTHES AND WILL NOT PUT CLOTHES ON. TELLS NURSE THE GOWN JUST DOESN'T FIT RIGHT. IV TO LEFT HAND. RIGHT SIDE OF HEAD WITH DRESSING TO LAURA HOLE/SHARRI IN PLACE.
[2019-10-17 20:30] VITALS: BP 118/64
[2019-10-18 00:30] VITALS: BP 156/87
[2019-10-18 04:30] VITALS: BP 152/88
--- NOTE | 2019-10-18 06:28 | NUR ---
RESITED 22G IV TO LEFT HAND FOR ABT. PREVIOUS IV WAS TAPED DOWN, BUT NOT IN THE VEIN. CPOC. PT STILL NAKED IN BED AND WILL NOT KEEP GOWN ON. HAVE NOT BEEN ABLE TO GET A URINE SPECIMEN, PT LITERALLY HOPS UP TO PEE IN BATHROOM AND BY THE TIME STAFF GETS TO ROOM/BED ALARM, HE IS ALREADY BACK IN BED. CPOC.
[2019-10-18 06:45] LABS: BASOPHILS 0.1 % (0-2); EOSINOPHILS 0.2 % (0-7); HEMATOCRIT 35.9 % (42.0-54.0); HEMOGLOBIN 12.4 g/dL (13.5-17.5); IMMATURE GRANULOCYTES 0.2 % (0-5); LYMPHOCYTES 11.3 % (15-50); MCH 28.4 pg (26.0-34.0); MCHC 34.5 g/dL (31.0-37.0); MCV 82.2 fL (80.0-100.0); MONOCYTES 7.7 % (2-11); NEUTROPHILS 80.5 % (40-80); PLATELET COUNT 339 10x3/uL (130-400); RBC 4.37 10x6/uL (4.20-6.10); RDW 13.3 % (11.5-14.5); WBC 9.3 10x3/uL (4.8-10.8)
[2019-10-18 07:21] LABS: ALKALINE PHOSPHATASE 50 U/L (30-120); ALT (SGPT) 51 U/L (10-68); BILIRUBIN - TOTAL 0.31 mg/dL (0.2-1.3); CALC OSMOLALITY 262 mosm/kg (275-300); CALCIUM 8.9 mg/dL (8.5-10.1); CARBON DIOXIDE 26.9 mmol/L (21.0-32.0); CHLORIDE - SERUM 98 mmol/L (98-107); CREATININE - SERUM 0.7 mg/dL (0.6-1.3); GLUCOSE 96 mg/dL (74-106); POTASSIUM - SERUM 3.2 mmol/L (3.5-5.1); PROTEIN - SERUM 7.1 g/dL (6.4-8.2); SODIUM 132 mmol/L (136-145); UREA NITROGEN 7 mg/dL (7-18); eGFR NON AFRICAN AMERICAN > 90 mL/min (90-120)
--- NOTE | 2019-10-18 07:45 | NUR ---
PT AWAKE AND OREINTED, UP TO BATHROOM WHILE I WAS IN ROOM. NO COMPLAINTS OR CONCERNS AT THIS TIME. ALL QUESTIONS ANSWERD TO THE BEST OF MY ABILITY. PT STILL ACTIVELY REFUSING TO KEEP HIS CLOTHING ON. CL IN REACH, SRX2, BED ALARM ON AND ACTIVE WNL.
--- NOTE | 2019-10-18 08:20 | NUR ---
PT C/O HEADACHE, 4/10 PAIN. REQUESTING MEDICATION, NONE ON JUL AT THIS TIME. WILL REQUEST FROM CONFERENCE ORGANIZER. CL INR EACH, SRX2, I/V SL.
[2019-10-18 10:14] VITALS: BP 153/103
--- NOTE | 2019-10-18 12:42 | MORECARE ---
CASE MANAGEMENT DISCHARGE SUMMARY PATIENT: MELISSA ISAAC UNIT: [id number] ADM DATE: 10/06/19 AGE: 64 : 53 SEX: M ROOM/BED: D.2124 AUTHOR: YURIDIADOC PHYSICIAN: REFERRING PHYSICIAN: AMY YANG MD DATE OF SERVICE: 10/18/19 Discharge Plan Patient Name: MELISSA ISAAC Facility: [facility]:[place] : 1955 Planned Disposition: Anticipated Discharge Date: Discharge Date: Expected LOS: Initial Reviewer: [email or web address] Initial Review Date: 10/06/2019 Generated: 10/18/19 1:42 pm Comments DCP- Discharge Planning Updated by [email or web address]: Felicitas Frausto on 10/18/19 11:[address] Spoke with patient and nephew today about Plan of care. He would like to go to rehab. I also spoke with Dr Martini about patient and he anticipates he could DC on Sunday. DCP- Discharge Planning Updated by [email or web address]: Beckie Jacobs on 10/16/19 2:[address] Patient Name: MELISSA ISAAC Encounter No: [id number] : 1955 Primary Insurance: [employer] Anticipated DC Date: Planned Disposition: External Planned Provider: : DCP follow-up note: CM contacted [facility] for follow up. Left message and will await return call. Patient had deborah hole today. Case management will follow and assist as needed. Beckie Jacobs MSN,RN,CM DCP- Discharge Planning Updated by [email or web address]: Savannah Cruz on 10/15/19 7:[address] CM contacted patient's daughter, per request of S/O Sabas Stone. Rox Jasmeet #[phone] ([facility]) gave permission to contact [facility]. Per patient's daughter, Rox Alamo, she is in agreement to this. This will require prior-authorization with patient's insurance. The patient is required to be able to participate in 5-6 hours of Rehab therapy, prior to transfer. Contact: Eileen Tolbert @[phone]. DCP- Discharge Planning Updated by [email or web address]: Ania Mathur on 10/08/19 5:[address] Patient Name: MELISSA ISAAC Admission Status: ER Accout number: [id number] Admission Date: 10-06-2019 : 1955 Admission Diagnosis: Attending: AMY YANG Current LOS: 2 Anticipated DC Date: Planned Disposition: Primary [facility] Discharge Planning Comments: CM met with patient at bedside after explaining CM role and obtaining verbal consent. Patient requested CM call and speak to his fimarcellus Stone [phone]. CM called Sabas and patient lives at home with his two nephews where he is independent with his care and plans to return there upon discharge. CM discussed availability / needs of home health and medical equipment. Uncertain of any discharge needs at this time. Patient will have his family drive him home upon discharge. CM will continue to follow and assist as needed with discharge planning / needs. Outside Sales Account Representative: Ania Mathur DCPIA - Discharge Planning Initial Assessment Updated by [id number]: Ania Mathur on 10/08/19 6:51 pm * Is the patient Alert and Oriented? Yes * How many steps to enter\exit or inside your home? * PCP MAYE * Pharmacy [facility] * Preadmission Environment Home with Family * ADLs Independent * Equipment None * List name and contact numbers for known caregivers / representatives who currently or will assist patient after discharge: SABAS STONE [facility] - [phone] ROX CANCINO [place] - DAUGHTER - [phone] * Verbal permission to speak to the caregivers and representatives has been obtained from the patient. Yes * Community resources currently utilized None * Additional services required to return to the preadmission environment? No * Can the patient safely return to the preadmission environment? Yes * Has this patient been hospitalized within the prior 30 days at any hospital? No Coverage Notice Reviewer: [email or web address] Yo Cruz Notice Issued Date-Time: 10/14/2019 14:16 Notice Type: Patient Choice Letter Notice Delivered To: Family Member Relationship to Patient: Daughter Gate Agent Name: Rox Alamo Delivery Method: PHONE - Phone Francisca Days: Prior Verbal Notification: Recipient Understood Notice: Yes Recipient Signature: Yes Med Rec Note Co-signed by Attending: Coverage Notice Comment: Antoinette Alamo gave telephone permission for patient to go to [facility]. Last DP export: 10/16/19 3:07 p Patient Name: MELISSA ISAAC Page 50467 at 1242 All edits/amendments must be made on the electronic document DICTATION DATE: 10/18/19 1242 TEA BLENDER: STANTON 10/18/19 1242 RPT#: [id number] DC DATE: STATUS: ADM IN [facility] [address] [place] [address] END OF REPORT
--- NOTE | 2019-10-18 13:43 | NUR ---
I have reviewed this patient and I concur with the Shift Assessment completed by the Licensed Practical Nurse today this shift.
[2019-10-18 13:55] LABS: MAGNESIUM - SERUM 1.8 mg/dL (1.8-2.4)
[2019-10-18 13:56] LABS: POTASSIUM - SERUM 3.8 mmol/L (3.5-5.1)
[2019-10-18 14:22] VITALS: BP 127/71
--- NOTE | 2019-10-18 18:07 | NUR ---
PT HAS BEEN ALERT AND ORIENTED WITH MOMENTS OF CONFUSION. HE HAS KEPT HIS CLOTHES ON MOST OF THE DAY AND WALKED WELL WITH STANDBY ASSIST. HE IS EAGER TO GO SUNDAY TO REHAB AND BE CLOSER TO GETTING HOME. FAMILY VISITED ONCE TODAY. ALL QUESTIONS ANSWERED TO THE BEST OF MY ABILITY. CL IN REACH,SRX2.
[2019-10-18 18:19] LABS: BILIRUBIN NEGATIVE (NEGATIVE); GLUCOSE NEGATIVE (NEGATIVE); KETONE NEGATIVE (NEGATIVE); NITRITE NEGATIVE (NEGATIVE); SPECIFIC GRAVITY 1.005 (1.005-1.020); UROBILINOGEN NORMAL (NORMAL)
[2019-10-19 00:30] VITALS: BP 137/84
[2019-10-19 04:30] VITALS: BP 132/76
--- NOTE | 2019-10-19 06:14 | NUR ---
NO VOICED C/O OR CONCERNS DURING THE NIGHT. DENIES NEEDS. NO S/SX OF DISTRESS OBSERVED. CALL LIGHT IN REACH. BED ALARM ON. WILL CPOC.
[2019-10-19 06:21] LABS: BASOPHILS 0.3 % (0-2); EOSINOPHILS 0.8 % (0-7); HEMATOCRIT 37.8 % (42.0-54.0); HEMOGLOBIN 13.1 g/dL (13.5-17.5); IMMATURE GRANULOCYTES 0.3 % (0-5); LYMPHOCYTES 12.3 % (15-50); MCH 28.9 pg (26.0-34.0); MCHC 34.7 g/dL (31.0-37.0); MCV 83.4 fL (80.0-100.0); MEAN PLATELET VOLUME 8.6 fL (7.4-10.4); MONOCYTES 7.7 % (2-11); NEUTROPHILS 78.6 % (40-80); PLATELET COUNT 306 10x3/uL (130-400); RBC 4.53 10x6/uL (4.20-6.10); RDW 13.4 % (11.5-14.5); WBC 7.7 10x3/uL (4.8-10.8)
[2019-10-19 06:58] LABS: ALKALINE PHOSPHATASE 52 U/L (30-120); ALT (SGPT) 54 U/L (10-68); BILIRUBIN - TOTAL 0.41 mg/dL (0.2-1.3); CALC OSMOLALITY 260 mosm/kg (275-300); CARBON DIOXIDE 26.4 mmol/L (21.0-32.0); CHLORIDE - SERUM 96 mmol/L (98-107); CREATININE - SERUM 0.7 mg/dL (0.6-1.3); GLUCOSE 94 mg/dL (74-106); PROTEIN - SERUM 6.6 g/dL (6.4-8.2); SODIUM 131 mmol/L (136-145); UREA NITROGEN 8 mg/dL (7-18); eGFR NON AFRICAN AMERICAN > 90 mL/min (90-120)
--- NOTE | 2019-10-19 07:11 | NUR ---
PT RESTING COMFORTABLY, EYES CLOSED, BREATHS EVEN, REGULAR AND UNLABORED. NO SIGNS OR SYMTPOMS OF ACUTE DISTRESS NOTED AT THIS TIME. CL IN REACH, SRX2.
--- NOTE | 2019-10-19 07:40 | NUR ---
PT RESTING COMFORTABLY, EYES CLOSED, BREATHS EVEN/REGULAR AND UNLABORED. NO SIGNS OR SYMTPOMS OF ACUTE DISTRESS NOTED AT THIS TIME CL IN REACH, SRX2.
[2019-10-19 08:22] VITALS: BP 146/106
--- NOTE | 2019-10-19 08:55 | NUR ---
PT AWAKE AND ORIENTED, TOOK MEDICATIONS WITHOUT COMPLICATIONS. PTS B/P IS ELIVATED AT THIS TIME, INFORMED ANTOINETTE ELLIOTT OF THIS, WILL RECHECK BLOOD PREASURE POST B/P MEDICATIONS WHICH I ADMINISTERED THIS AM. NO COMPALITNS OR CONCERNS AT THIS TIME, ALL QUETSIONS ANSWRED TO THE BEST OF MY ABILITY. CL IN REACH, SRX2, BED ALARM ON AND ACTIVE WNL.
[2019-10-19 12:17] VITALS: BP 133/87
[2019-10-19 15:45] VITALS: BP 140/92
--- NOTE | 2019-10-19 17:04 | NUR ---
PT HAS BEEN SLEEPING MOST OF THE DAY, WAKING FOR MEALS AND THEN GOING RIGHT BACK TO SLEEP. NO COMPLAINTS OF PAIN OR DISCOMFORT, NO CONCERNS STATED AT THIS TIME. CL IN REACH, SRX2, ALL QUESTIONS ANSWERED TO THE BEST OF MY ABILITY.
--- NOTE | 2019-10-19 18:38 | NUR ---
I have reviewed this patient and I concur with the Shift Assessment completed by the Licensed Practical Nurse today this shift.
[2019-10-19 20:30] VITALS: BP 131/71
[2019-10-20] VITALS (7 sets, daily range): BP systolic 108–140; BP diastolic 62–79
[2019-10-20 05:29] LABS: BASOPHILS 0.1 % (0-2); EOSINOPHILS 0.6 % (0-7); HEMATOCRIT 37.2 % (42.0-54.0); HEMOGLOBIN 12.8 g/dL (13.5-17.5); IMMATURE GRANULOCYTES 0.1 % (0-5); LYMPHOCYTES 8.1 % (15-50); MCH 28.4 pg (26.0-34.0); MCHC 34.4 g/dL (31.0-37.0); MCV 82.5 fL (80.0-100.0); MEAN PLATELET VOLUME 8.6 fL (7.4-10.4); MONOCYTES 5.2 % (2-11); NEUTROPHILS 85.9 % (40-80); PLATELET COUNT 288 10x3/uL (130-400); RBC 4.51 10x6/uL (4.20-6.10); RDW 13.2 % (11.5-14.5); WBC 8.6 10x3/uL (4.8-10.8)
[2019-10-20 06:01] LABS: ALBUMIN 2.9 g/dL (3.4-5.0); ALKALINE PHOSPHATASE 46 U/L (30-120); ALT (SGPT) 49 U/L (10-68); BILIRUBIN - TOTAL 0.47 mg/dL (0.2-1.3); CALC OSMOLALITY 260 mosm/kg (275-300); CALCIUM 9.1 mg/dL (8.5-10.1); CARBON DIOXIDE 27.6 mmol/L (21.0-32.0); CHLORIDE - SERUM 96 mmol/L (98-107); GLUCOSE 194 mg/dL (74-106); POTASSIUM - SERUM 3.6 mmol/L (3.5-5.1); SODIUM 128 mmol/L (136-145); UREA NITROGEN 9 mg/dL (7-18); eGFR NON AFRICAN AMERICAN 79 mL/min (90-120)
--- NOTE | 2019-10-20 07:15 | NUR ---
RECEIVED PT IN BED EYES CLOSED RESP UNLABORED SKIN W/D COLOR WNL NAD NOTED
--- NOTE | 2019-10-20 08:55 | MORECARE ---
CASE MANAGEMENT DISCHARGE SUMMARY PATIENT: MELISSA ISAAC UNIT: [id number] ADM DATE: 10/06/19 AGE: 64 : 51 SEX: M ROOM/BED: D.2194 AUTHOR: YURIDIA,DOC PHYSICIAN: REFERRING PHYSICIAN: AMY YANG MD DATE OF SERVICE: 10/20/19 Discharge Plan Patient Name: MELISSA ISAAC Facility: [facility]:[place] : 1955 Planned Disposition: Anticipated Discharge Date: Discharge Date: Expected LOS: Initial Reviewer: [email or web address] Initial Review Date: 10/06/2019 Generated: 10/20/19 9:55 am Comments DCP- Discharge Planning Updated by [email or web address]: Beckie Jacobs on 10/20/19 7:[address] Patient Name: MELISSA ISAAC Encounter No: [id number] : 1955 Primary Insurance: [employer] Anticipated DC Date: Planned Disposition: External Planned Provider: : DCP follow-up note: CM met with patient to discuss dc plan. Patient stated he did not want to go to [facility] [place] or in [place]. States he wants to go down stairs to IP rehab. States he lives with his nephews here in [place]. JAZZMINE signed for IP rehab at [facility]. Case management will follow and assist as needed. Beckie Jacobs MSN,RN,CM DCP- Discharge Planning Updated by [email or web address]: Felicitas Frausto on 10/18/19 11:[address] Spoke with patient and nephew today about Plan of care. He would like to go to rehab. I also spoke with Dr Martini about patient and he anticipates he could DC on Sunday. DCP- Discharge Planning Updated by [id number]: Beckie Jacobs on 10/16/19 2:[address] Patient Name: MELISSA ISAAC Encounter No: [id number] : 1955 Primary Insurance: [employer] Anticipated DC Date: Planned Disposition: External Planned Provider: : DCP follow-up note: CM contacted [facility] for follow up. Left message and will await return call. Patient had deborah hole today. Case management will follow and assist as needed. Beckie Jacobs MSN,RN,CM DCP- Discharge Planning Updated by [id number]: Savannah Anthony on 10/15/19 7:[address] CM contacted patient's daughter, per request of S/O Sabas Stone. Rox Alamo #[phone] ([facility]) gave permission to contact [facility]. Per patient's daughter, Rox Alamo, she is in agreement to this. This will require prior-authorization with patient's insurance. The patient is required to be able to participate in 5-6 hours of Rehab therapy, prior to transfer. Contact: Eileen Tolbert @[phone]. DCP- Discharge Planning Updated by [email or web address]: Ania Mathur on 10/08/19 5:[address] Patient Name: MELISSA ISAAC Admission Status: ER Accout number: [id number] Admission Date: 10-06-2019 : 1955 Admission Diagnosis: Attending: AMY YANG Current LOS: 2 Anticipated DC Date: Planned Disposition: Primary Insurance: [employer] Discharge Planning Comments: CM met with patient at bedside after explaining CM role and obtaining verbal consent. Patient requested CM call and speak to his fianc? Sabas Stone [phone]. CM called Sabas and patient lives at home with his two nephews where he is independent with his care and plans to return there upon discharge. CM discussed availability / needs of home health and medical equipment. Uncertain of any discharge needs at this time. Patient will have his family drive him home upon discharge. CM will continue to follow and assist as needed with discharge planning / needs. Laundry Tech: Ania Mathur DCPIA - Discharge Planning Initial Assessment Updated by [email or web address]: Ania Mathur on 10/08/19 6:51 pm * Is the patient Alert and Oriented? Yes * How many steps to enter\exit or inside your home? * PCP [facility]YE * [facility]acy [facility] * Preadmission Environment Home with Family * ADLs Independent * Equipment None * List name and contact numbers for known caregivers / representatives who currently or will assist patient after discharge: SABAS STONE - MARIA DEL CARMEN - [phone] ROX CANCINO [place] - DAUGHTER - [phone] * Verbal permission to speak to the caregivers and representatives has been obtained from the patient. Yes * Community resources currently utilized None * Additional services required to return to the preadmission environment? No * Can the patient safely return to the preadmission environment? Yes * Has this patient been hospitalized within the prior 30 days at any hospital? No Coverage Notice Reviewer: [id number] Yo Cruz Notice Issued Date-Time: 10/14/2019 14:16 Notice Type: Patient Choice Letter Notice Delivered To: Family Member Relationship to Patient: Daughter Manual Writer Name: Rox Alamo Delivery Method: PHONE - Phone Francisca Days: Prior Verbal Notification: Recipient Understood Notice: Yes Recipient Signature: Yes Med Rec Note Co-signed by Attending: Coverage Notice Comment: Daughter Rox Alamo gave telephone permission for patient to go to [facility]. Reviewer: [email or web address] oY Jacobs Notice Issued Date-Time: 10/20/2019 8:45 Notice Type: Patient Choice Letter Notice Delivered To: Patient Relationship to Patient: Manual Writer Name: Delivery Method: HAND - Hand Delivered Francisca Days: Prior Verbal Notification: Recipient Understood Notice: Yes Recipient Signature: Yes Med Rec Note Co-signed by Attending: Coverage Notice Comment: jazzmine SIGNED FOR ip REHAB AT [facility] Last DP export: 10/18/19 11:42 a Patient Name: MELISSA ISAAC Page 95995 at 0855 All edits/amendments must be made on the electronic document DICTATION DATE: 10/20/19854 SEISMOGRAPH COMPUTER: STANTON 10/20/19 0855 RPT#: [id number] DC DATE: STATUS: ADM IN [facility] [address] [place] [address] END OF REPORT
--- NOTE | 2019-10-20 09:00 | NUR ---
RESITED IV TO LFA WITH 22 GA IV CATHETER X1 STICK USING ASEPTIC TECHNIQUE
--- NOTE | 2019-10-20 09:05 | MORECARE ---
CASE MANAGEMENT DISCHARGE SUMMARY PATIENT: MELISSA ISAAC UNIT: [id number] ADM DATE: 10/06/19 AGE: 64 : 51 SEX: M ROOM/BED: D.7254 AUTHOR: YURIDIA,DOC PHYSICIAN: REFERRING PHYSICIAN: AMY YANG MD DATE OF SERVICE: 10/20/19 Discharge Plan Patient Name: MELISSA ISAAC Facility: [facility]:[place] : 1955 Planned Disposition: Anticipated Discharge Date: Discharge Date: Expected LOS: Initial Reviewer: [email or web address] Initial Review Date: 10/06/2019 Generated: 10/20/19 10:04 am Comments DCP- Discharge Planning Updated by [id number]: Beckie Jacobs on 10/20/19 7:[address] Patient Name: MELISSA ISAAC Encounter No: [id number] : 1955 Primary Insurance: [employer].SLCR Anticipated DC Date: Planned Disposition: External Planned Provider: : DCP follow-up note: CM met with patient to discuss dc plan. Patient stated he did not want to go to [facility] in [place] or in [place]. States he wants to go down stairs to IP rehab. States he lives with his nephews here in [place]. JAZZMINE signed for IP rehab at [facility]. Case management will follow and assist as needed. Beckie Jacobs MSN,RN,CM DCP- Discharge Planning Updated by [email or web address]: Felicitas Frausto on 10/18/19 11:[address] Spoke with patient and nephew today about Plan of care. He would like to go to rehab. I also spoke with Dr Martini about patient and he anticipates he could DC on Sunday. DCP- Discharge Planning Updated by [email or web address]: Beckie Jacobs on 10/16/19 2:[address] Patient Name: MELISSA ISAAC Encounter No: [id number] : 1955 Primary Insurance: NOVASYSMCR Anticipated DC Date: Planned Disposition: External Planned Provider: : DCP follow-up note: CM contacted [facility] for follow up. Left message and will await return call. Patient had deborah hole today. Case management will follow and assist as needed. Beckie Jacobs MSN,RN,CM DCP- Discharge Planning Updated by [id number]: Savannah Anthony on 10/15/19 7:[address] CM contacted patient's daughter, per request of S/O Sabas Stone. Rox Alamo #[phone] ([facility]) gave permission to contact [facility]. Per patient's daughter, Rox Alamo, she is in agreement to this. This will require prior-authorization with patient's insurance. The patient is required to be able to participate in 5-6 hours of Rehab therapy, prior to transfer. Contact: Eileen Tolbert @[phone]. DCP- Discharge Planning Updated by [email or web address]: Ania Mathur on 10/08/19 5:[address] Patient Name: MELISSA ISAAC Admission Status: ER Accout number: [id number] Admission Date: 10-06-2019 : 1955 Admission Diagnosis: Attending: AMY YANG Current LOS: 2 Anticipated DC Date: Planned Disposition: Primary Insurance: [employer] Discharge Planning Comments: CM met with patient at bedside after explaining CM role and obtaining verbal consent. Patient requested CM call and speak to his fianc? Sabas Stone [phone]. CM called Sabas and patient lives at home with his two nephews where he is independent with his care and plans to return there upon discharge. CM discussed availability / needs of home health and medical equipment. Uncertain of any discharge needs at this time. Patient will have his family drive him home upon discharge. CM will continue to follow and assist as needed with discharge planning / needs. Pot Builder: Ania Mathur DCPIA - Discharge Planning Initial Assessment Updated by [email or web address]: Ania Mathur on 10/08/19 6:51 pm * Is the patient Alert and Oriented? Yes * How many steps to enter\exit or inside your home? * PCP MAYE * Pharmacy [facility] * Preadmission Environment Home with Family * ADLs Independent * Equipment None * List name and contact numbers for known caregivers / representatives who currently or will assist patient after discharge: SABAS STONE - MARIA DEL CARMEN - [phone] R[place] - DAUGHTER - [phone] * Verbal permission to speak to the caregivers and representatives has been obtained from the patient. Yes * Community resources currently utilized None * Additional services required to return to the preadmission environment? No * Can the patient safely return to the preadmission environment? Yes * Has this patient been hospitalized within the prior 30 days at any hospital? No Coverage Notice Reviewer: [email or web address] Yo Cruz Notice Issued Date-Time: 10/14/2019 14:16 Notice Type: Patient Choice Letter Notice Delivered To: Family Member Relationship to Patient: Daughter Rag Willow Operator Name: Rox Alamo Delivery Method: PHONE - Phone Francisca Days: Prior Verbal Notification: Recipient Understood Notice: Yes Recipient Signature: Yes Med Rec Note Co-signed by Attending: Coverage Notice Comment: Daughter Rox Alamo gave telephone permission for patient to go to [facility]. Reviewer: [id number] Yo Jacobs Notice Issued Date-Time: 10/20/2019 8:45 Notice Type: Patient Choice Letter Notice Delivered To: Patient Relationship to Patient: Rag Willow Operator Name: Delivery Method: HAND - Hand Delivered Francisca Days: Prior Verbal Notification: Recipient Understood Notice: Yes Recipient Signature: Yes Med Rec Note Co-signed by Attending: Coverage Notice Comment: jazzmine SIGNED FOR ip REHAB AT [facility] Last DP export: 10/20/19 7:55 am Patient Name: MELISSA ISAAC Page [phone] at 0905 All edits/amendments must be made on the electronic document DICTATION DATE: 10/20/19904 COLLEGE ATHLETIC DIRECTOR: STANTON 10/20/19 09 RPT#: [id number] DC DATE: STATUS: ADM IN [facility] [address] [place] [address] END OF REPORT
--- NOTE | 2019-10-20 11:11 | NUR ---
Rehab Prescreening Consult recieved and the chart has been reviewed. He is [employer]/ [employer] managed Medicare and will require a preauth. He has ambulated 750 ft with PT, but does have issues with balance. Information will be submitted to them for to review. Jessy Zhong RN Clinical Liaison, Rehab
--- NOTE | 2019-10-20 15:31 | NUR ---
OT NOTE: PT REQUIRED CGA WITH BED MOB . PT COMPLETED FACE HYGIENE AT EOB WITH SETUP. PT HAD C/O PAIN IN L ELBOW. NURSING NOTIFIED. NURSING TO ORDER XRAY. [phone] THANK YOU,AGNIESZKA SANDERS
--- NOTE | 2019-10-20 20:00 | NUR ---
REPORT RECEIVED AND ROUNDING COMPLETE. PATIENT LAYING IN BED FLAT ON RIGHT SIDE. PATIENT EYES CLOSED AND BREATHING EVEN AND UNLABORED. PATIENT EASILY AROUSED BUT VERY UPSET WHEN WOKEN UP. SHOUTED TO GO AWAY AND LEAVE HIM BE, HE DIDNT NEED ANYTHING OR WANT ANYTHING. PATIENT HAS A LEFT FOREARM PIV THAT IS SALINE LOCKED AT THIS TIME AND APPEARS TO BE IN GOOD WORKING ORDER, PATIENT WOULD NOT LET ME FLUSH AT THIS TIME. INGE HAS SHARRI TO THE LEFT FRONTAL HEAD THAT ARE WNL AND HAS NO DISCHARGE AT THIS TIME. CALL LIGHT WITHIN REACH AND BED IN LOWEST LOCKED POSITION.
[2019-10-21 04:27] VITALS: BP 146/84
[2019-10-21 06:22] LABS: ALBUMIN 2.9 g/dL (3.4-5.0); ALKALINE PHOSPHATASE 49 U/L (30-120); ALT (SGPT) 44 U/L (10-68); BILIRUBIN - TOTAL 0.39 mg/dL (0.2-1.3); CARBON DIOXIDE 28.2 mmol/L (21.0-32.0); CHLORIDE - SERUM 95 mmol/L (98-107); CREATININE - SERUM 0.8 mg/dL (0.6-1.3); POTASSIUM - SERUM 3.4 mmol/L (3.5-5.1); SODIUM 130 mmol/L (136-145); UREA NITROGEN 8 mg/dL (7-18); VANCOMYCIN - TROUGH 6.9 ug/mL (10.0-20.0); eGFR NON AFRICAN AMERICAN > 90 mL/min (90-120)
[2019-10-21 06:23] LABS: BASOPHILS 0.3 % (0-2); CALC OSMOLALITY 258 mosm/kg (275-300); GLUCOSE 104 mg/dL (74-106); HEMATOCRIT 36.7 % (42.0-54.0); HEMOGLOBIN 12.6 g/dL (13.5-17.5); IMMATURE GRANULOCYTES 0.4 % (0-5); LYMPHOCYTES 12.4 % (15-50); MCH 28.7 pg (26.0-34.0); MCHC 34.3 g/dL (31.0-37.0); MCV 83.6 fL (80.0-100.0); MONOCYTES 6.3 % (2-11); NEUTROPHILS 79.6 % (40-80); PLATELET COUNT 309 10x3/uL (130-400); RBC 4.39 10x6/uL (4.20-6.10); RDW 13.2 % (11.5-14.5); WBC 7.9 10x3/uL (4.8-10.8)
[2019-10-21 08:47] VITALS: BP 122/73
--- NOTE | 2019-10-21 10:30 | MORECARE ---
CASE MANAGEMENT DISCHARGE SUMMARY PATIENT: MELISSA ISAAC UNIT: [id number] ADM DATE: 10/06/19 AGE: 64 : 53 SEX: M ROOM/BED: D.9744 AUTHOR: YURIDIA,DOC PHYSICIAN: REFERRING PHYSICIAN: AMY YANG MD DATE OF SERVICE: 10/21/19 Discharge Plan Patient Name: MELISSA ISAAC Facility: [facility]:[place] : 1955 Planned Disposition: Anticipated Discharge Date: Discharge Date: Expected LOS: Initial Reviewer: [email or web address] Initial Review Date: 10/06/2019 Generated: 10/21/19 11:29 am Comments DCP- Discharge Planning Updated by [email or web address]: Beckie Jacobs on 10/20/19 7:[address] Patient Name: MELISSA ISAAC Encounter No: [id number] : 1955 Primary Insurance: NOVASYSMCR Anticipated DC Date: Planned Disposition: External Planned Provider: : DCP follow-up note: CM met with patient to discuss dc plan. Patient stated he did not want to go to [facility] in [place] or in [place]. States he wants to go down stairs to IP rehab. States he lives with his nephews here in [place]. JAZZMINE signed for IP rehab at [facility]. Case management will follow and assist as needed. Beckie Jacobs MSN,RN,CM DCP- Discharge Planning Updated by [email or web address]: Felicitas Frausto on 10/18/19 11:[address] Spoke with patient and nephew today about Plan of care. He would like to go to rehab. I also spoke with Dr Martini about patient and he anticipates he could DC on Sunday. DCP- Discharge Planning Updated by [id number]: Beckie Jacobs on 10/16/19 2:[address] Patient Name: MELISSA ISAAC Encounter No: [id number] : 1955 Primary Insurance: NOVASYSMCR Anticipated DC Date: Planned Disposition: External Planned Provider: : DCP follow-up note: CM contacted [facility] for follow up. Left message and will await return call. Patient had deborah hole today. Case management will follow and assist as needed. Beckie Jacobs MSN,RN,CM DCP- Discharge Planning Updated by [email or web address]: Savannah Anthony on 10/15/19 7:[address] CM contacted patient's daughter, per request of S/O Sabas Stone. Rox Alamo #[phone] ([facility]) gave permission to contact [facility]. Per patient's daughter, Rox Alamo, she is in agreement to this. This will require prior-authorization with patient's insurance. The patient is required to be able to participate in 5-6 hours of Rehab therapy, prior to transfer. Contact: Eileen Tolbert @[phone]. DCP- Discharge Planning Updated by [email or web address]: Ania Mathur on 10/08/19 5:[address] Patient Name: MELISSA ISAAC Admission Status: ER Accout number: [id number] Admission Date: 10-06-2019 : 1955 Admission Diagnosis: Attending: AMY YANG Current LOS: 2 Anticipated DC Date: Planned Disposition: Primary Insurance: [employer] Discharge Planning Comments: CM met with patient at bedside after explaining CM role and obtaining verbal consent. Patient requested CM call and speak to his fianc? Sabas Stone [phone]. CM called Sabas and patient lives at home with his two nephews where he is independent with his care and plans to return there upon discharge. CM discussed availability / needs of home health and medical equipment. Uncertain of any discharge needs at this time. Patient will have his family drive him home upon discharge. CM will continue to follow and assist as needed with discharge planning / needs. Sales Promotion Representative: Ania Mathur DCPIA - Discharge Planning Initial Assessment Updated by [email or web address]: Ania Mathur on 10/08/19 6:51 pm * Is the patient Alert and Oriented? Yes * How many steps to enter\exit or inside your home? * PCP MAYE * [facility]acy [facility] * Preadmission Environment Home with Family * ADLs Independent * Equipment None * List name and contact numbers for known caregivers / representatives who currently or will assist patient after discharge: SABAS STONE - MARIA DEL CARMEN - [phone] [place] - DAUGHTER - [phone] * Verbal permission to speak to the caregivers and representatives has been obtained from the patient. Yes * Community resources currently utilized None * Additional services required to return to the preadmission environment? No * Can the patient safely return to the preadmission environment? Yes * Has this patient been hospitalized within the prior 30 days at any hospital? No Coverage Notice Reviewer: [id number] Yo Cruz Notice Issued Date-Time: 10/14/2019 14:16 Notice Type: Patient Choice Letter Notice Delivered To: Family Member Relationship to Patient: Daughter Ophthalmic Lens Inspector Name: Rox Alamo Delivery Method: PHONE - Phone Francisca Days: Prior Verbal Notification: Recipient Understood Notice: Yes Recipient Signature: Yes Med Rec Note Co-signed by Attending: Coverage Notice Comment: Daughter Rox Alamo gave telephone permission for patient to go to [facility]. Reviewer: [id number] Yo Jacobs Notice Issued Date-Time: 10/20/2019 8:45 Notice Type: Patient Choice Letter Notice Delivered To: Patient Relationship to Patient: Ophthalmic Lens Inspector Name: Delivery Method: HAND - Hand Delivered Francisca Days: Prior Verbal Notification: Recipient Understood Notice: Yes Recipient Signature: Yes Med Rec Note Co-signed by Attending: Coverage Notice Comment: jazzmine SIGNED FOR ip REHAB AT [facility] Last DP export: 10/20/19 8:05 am Patient Name: MELISSA ISAAC Page [id number] at 1030 All edits/amendments must be made on the electronic document DICTATION DATE: 10/21/19 1029 NAVAL ARCHITECT SPECIALIST: STANTON 10/21/19 1029 RPT#: [id number] DC DATE: STATUS: ADM IN [facility] [address] [place] [address] END OF REPORT
--- NOTE | 2019-10-21 10:38 | MORECARE ---
CASE MANAGEMENT DISCHARGE SUMMARY PATIENT: MELISSA ISAAC UNIT: [id number] ADM DATE: 10/06/19 AGE: 64 : 51 SEX: M ROOM/BED: D.4044 AUTHOR: YURIDIA,DOC PHYSICIAN: REFERRING PHYSICIAN: AMY YANG MD DATE OF SERVICE: 10/21/19 Discharge Plan Patient Name: MELISSA ISAAC Facility: [facility]:[place] : 1955 Planned Disposition: Anticipated Discharge Date: Discharge Date: Expected LOS: Initial Reviewer: [email or web address] Initial Review Date: 10/06/2019 Generated: 10/21/19 11:38 am Comments DCP- Discharge Planning Updated by [email or web address]: Beckie Jacobs on 10/20/19 7:[address] Patient Name: MELISSA ISAAC Encounter No: [id number] : 1955 Primary Insurance: NOVASYSMCR Anticipated DC Date: Planned Disposition: External Planned Provider: : DCP follow-up note: CM met with patient to discuss dc plan. Patient stated he did not want to go to [facility] in [place] or in [place]. States he wants to go down stairs to IP rehab. States he lives with his nephews here in [place]. JAZZMINE signed for IP rehab at [facility]. Case management will follow and assist as needed. Beckie Jacobs MSN,RN,CM DCP- Discharge Planning Updated by [email or web address]: Felicitas Frausto on 10/18/19 11:[address] Spoke with patient and nephew today about Plan of care. He would like to go to rehab. I also spoke with Dr Martini about patient and he anticipates he could DC on Sunday. DCP- Discharge Planning Updated by [email or web address]: Beckie Jacobs on 10/16/19 2:[address] Patient Name: MELISSA ISAAC Encounter No: [id number] : 1955 Primary Insurance: NOVASYSMCR Anticipated DC Date: Planned Disposition: External Planned Provider: : DCP follow-up note: CM contacted [facility] for follow up. Left message and will await return call. Patient had deborah hole today. Case management will follow and assist as needed. Beckie Jacobs MSN,RN,CM DCP- Discharge Planning Updated by [id number]: Savannah Anthony on 10/15/19 7:[address] CM contacted patient's daughter, per request of S/O Sabas Stone. Rox Alamo #[phone] ([facility]) gave permission to contact [facility]. Per patient's daughter, Rox Alamo, she is in agreement to this. This will require prior-authorization with patient's insurance. The patient is required to be able to participate in 5-6 hours of Rehab therapy, prior to transfer. Contact: Eileen Tolbert @[phone]. DCP- Discharge Planning Updated by [email or web address]: Ania Mathur on 10/08/19 5:[address] Patient Name: MELISSA ISAAC Admission Status: ER Accout number: [id number] Admission Date: 10-06-2019 : 1955 Admission Diagnosis: Attending: AMY YANG Current LOS: 2 Anticipated DC Date: Planned Disposition: Primary Insurance: [employer] Discharge Planning Comments: CM met with patient at bedside after explaining CM role and obtaining verbal consent. Patient requested CM call and speak to his fianc? Sabas Stone [phone]. CM called Sabas and patient lives at home with his two nephews where he is independent with his care and plans to return there upon discharge. CM discussed availability / needs of home health and medical equipment. Uncertain of any discharge needs at this time. Patient will have his family drive him home upon discharge. CM will continue to follow and assist as needed with discharge planning / needs. Demolitionist: Ania Mathur DCPIA - Discharge Planning Initial Assessment Updated by [email or web address]: Ania Mathur on 10/08/19 6:51 pm * Is the patient Alert and Oriented? Yes * How many steps to enter\exit or inside your home? * PCP [facility] * [facility]acy [facility] * Preadmission Environment Home with Family * ADLs Independent * Equipment None * List name and contact numbers for known caregivers / representatives who currently or will assist patient after discharge: SABAS STONE - MARIA DEL CARMEN - [phone] [place] - DAUGHTER - [phone] * Verbal permission to speak to the caregivers and representatives has been obtained from the patient. Yes * Community resources currently utilized None * Additional services required to return to the preadmission environment? No * Can the patient safely return to the preadmission environment? Yes * Has this patient been hospitalized within the prior 30 days at any hospital? No External Providers External Provider: [facility] Next Contact Date: Service Request Date: Service Type: Resolution: Reviewer: Comments: Coverage Notice Reviewer: [id number] Yo Cruz Notice Issued Date-Time: 10/14/2019 14:16 Notice Type: Patient Choice Letter Notice Delivered To: Family Member Relationship to Patient: Daughter Engineer Geophysical Laboratory Name: Rox Alamo Delivery Method: PHONE - Phone Francisca Days: Prior Verbal Notification: Recipient Understood Notice: Yes Recipient Signature: Yes Med Rec Note Co-signed by Attending: Coverage Notice Comment: Daughter Rox Alamo gave telephone permission for patient to go to [facility]. Reviewer: [id number] Yo Jacobs Notice Issued Date-Time: 10/20/2019 8:45 Notice Type: Patient Choice Letter Notice Delivered To: Patient Relationship to Patient: Engineer Geophysical Laboratory Name: Delivery Method: HAND - Hand Delivered Francisca Days: Prior Verbal Notification: Recipient Understood Notice: Yes Recipient Signature: Yes Med Rec Note Co-signed by Attending: Coverage Notice Comment: jazzmine SIGNED FOR ip REHAB AT [facility] Last DP export: 10/21/19 9:30 am Patient Name: MELISSA ISAAC Page [phone] at 1038 All edits/amendments must be made on the electronic document DICTATION DATE: 10/21/19 1038 MORTAR CARRIER: STANTON 10/21/19 1038 RPT#: [id number] DC DATE: STATUS: ADM IN [facility] [address] [place] [address] END OF REPORT
--- NOTE | 2019-10-21 10:50 | OP ---
PATIENT NAME: MELISSA ISAAC MEDICAL RECORD: [id number] :[birth year] LOCATION:D.M2 D.2124 ADMISSION DATE:10/06/19 SURGEON: BERENICE MARTE MD DATE OF OPERATION: 10/16/2019 PREOPERATIVE DIAGNOSIS: Right frontal subacute subdural hematoma. POSTOPERATIVE DIAGNOSIS: Right frontal subacute subdural hematoma. PROCEDURE: Right frontal deborah hole for evacuation of subdural hematoma. DESCRIPTION OF TECHNIQUE: After induction of general endotracheal anesthesia, the patient's right frontal scalp area was prepped and draped in usual sterile fashion. After infiltration of 1:100,000 epinephrine with 1% lidocaine into the scalp, an incision was carried of the right superior temporal line. A Midas Mushtaq drill with a craniotome was used to create a deborah hole. Following this, the dura was opened in a cruciate manner with bipolar cautery and #11 blade. There was brisk egress of subacute subdural hematoma fluid from subdural space. This was irrigated until was crystal clear with lukewarm saline irrigant solution. The galea was reapproximated with interrupted 2-0 Vicryl suture. The skin was closed with catherine. A sterile dressing was applied to the wound. The patient was awakened in good condition and taken to recovery. All counts were reported as correct. Estimated blood loss was minimal. TRANSINT:[id number] Voice Confirmation ID: [id number] DOCUMENT ID: [id number] BERENICE MARTE MD at 1050 CC: [id number] DICTATION DATE: 10/20/19 09 TELEPHONE CLEANER: 10/20/19 1530 ADM IN [place] [id number]
[2019-10-21 13:11] VITALS: BP 132/78
--- NOTE | 2019-10-21 14:09 | MORECARE ---
CASE MANAGEMENT DISCHARGE SUMMARY PATIENT: MELISSA ISAAC UNIT: [id number] ADM DATE: 10/06/19 AGE: 64 : 51 SEX: M ROOM/BED: D.7794 AUTHOR: YURIDIA,DOC PHYSICIAN: REFERRING PHYSICIAN: AMY YANG MD DATE OF SERVICE: 10/21/19 Discharge Plan Patient Name: MELISSA ISAAC Facility: [facility]:[place] : 1955 Planned Disposition: Anticipated Discharge Date: Discharge Date: Expected LOS: Initial Reviewer: [id number] Initial Review Date: 10/06/2019 Generated: 10/21/19 3:08 pm Comments DCP- Discharge Planning Updated by [email or web address]: Beckie Jacobs on 10/20/19 7:[address] Patient Name: MELISSA ISAAC Encounter No: [id number] : 1955 Primary Insurance: [employer]YSMCR Anticipated DC Date: Planned Disposition: External Planned Provider: : DCP follow-up note: CM met with patient to discuss dc plan. Patient stated he did not want to go to [facility] in [place] or in [place]. States he wants to go down stairs to IP rehab. States he lives with his nephews here in [place]. JAZZMINE signed for IP rehab at [facility]. Case management will follow and assist as needed. Beckie Jacobs MSN,RN,CM DCP- Discharge Planning Updated by [email or web address]: Felicitas Frausto on 10/18/19 11:[address] Spoke with patient and nephew today about Plan of care. He would like to go to rehab. I also spoke with Dr Martini about patient and he anticipates he could DC on Sunday. DCP- Discharge Planning Updated by [email or web address]: Beckie Jacobs on 10/16/19 2:[address] Patient Name: MELISSA ISAAC Encounter No: [id number] : 1955 Primary Insurance: NOVASYSMCR Anticipated DC Date: Planned Disposition: External Planned Provider: : DCP follow-up note: CM contacted [facility] for follow up. Left message and will await return call. Patient had deborah hole today. Case management will follow and assist as needed. Beckie Jacobs MSN,RN,CM DCP- Discharge Planning Updated by [email or web address]: Savannah Anthony on 10/15/19 7:[address] CM contacted patient's daughter, per request of S/O Sabas Stone. Rox Alamo #[phone] ([facility]) gave permission to contact [facility]. Per patient's daughter, Rox Alamo, she is in agreement to this. This will require prior-authorization with patient's insurance. The patient is required to be able to participate in 5-6 hours of Rehab therapy, prior to transfer. Contact: Eileen Tolbert @[phone]. DCP- Discharge Planning Updated by [email or web address]: Ania Mathur on 10/08/19 5:[address] Patient Name: MELISSA ISAAC Admission Status: ER Accout number: [id number] Admission Date: 10-06-2019 : 1955 Admission Diagnosis: Attending: AMY YANG Current LOS: 2 Anticipated DC Date: Planned Disposition: Primary Insurance: [email or web address] Discharge Planning Comments: CM met with patient at bedside after explaining CM role and obtaining verbal consent. Patient requested CM call and speak to his fianc? Sabas Stone [phone]. CM called Sabas and patient lives at home with his two nephews where he is independent with his care and plans to return there upon discharge. CM discussed availability / needs of home health and medical equipment. Uncertain of any discharge needs at this time. Patient will have his family drive him home upon discharge. CM will continue to follow and assist as needed with discharge planning / needs. Mixing Machine Tender Cork Rod: Ania Mathur DCPIA - Discharge Planning Initial Assessment Updated by [email or web address]: Ania Mathur on 10/08/19 6:51 pm * Is the patient Alert and Oriented? Yes * How many steps to enter\exit or inside your home? * PCP MAYE * [facility]acy [facility] * Preadmission Environment Home with Family * ADLs Independent * Equipment None * List name and contact numbers for known caregivers / representatives who currently or will assist patient after discharge: SABAS STONE - MARIA DEL CARMEN - [phone] R[place] - DAUGHTER - [phone] * Verbal permission to speak to the caregivers and representatives has been obtained from the patient. Yes * Community resources currently utilized None * Additional services required to return to the preadmission environment? No * Can the patient safely return to the preadmission environment? Yes * Has this patient been hospitalized within the prior 30 days at any hospital? No External Providers External Provider: [facility] Next Contact Date: Service Request Date: Service Type: Resolution: Reviewer: Comments: External Provider: [facility] Next Contact Date: Service Request Date: Service Type: Resolution: Reviewer: Comments: Coverage Notice Reviewer: [id number] Yo Cruz Notice Issued Date-Time: 10/14/2019 14:16 Notice Type: Patient Choice Letter Notice Delivered To: Family Member Relationship to Patient: Daughter Knee Bolter Name: Rox Alamo Delivery Method: PHONE - Phone Francisca Days: Prior Verbal Notification: Recipient Understood Notice: Yes Recipient Signature: Yes Med Rec Note Co-signed by Attending: Coverage Notice Comment: Daughter Rox Alamo gave telephone permission for patient to go to [facility]. Reviewer: [id number] Yo Jacobs Notice Issued Date-Time: 10/20/2019 8:45 Notice Type: Patient Choice Letter Notice Delivered To: Patient Relationship to Patient: Knee Bolter Name: Delivery Method: HAND - Hand Delivered Francisca Days: Prior Verbal Notification: Recipient Understood Notice: Yes Recipient Signature: Yes Med Rec Note Co-signed by Attending: Coverage Notice Comment: jazzmine SIGNED FOR ip REHAB AT [facility] OR CARE IV Last DP export: 10/21/19 9:38 am Patient Name: MELISSA ISAAC Page 69470 at 1409 All edits/amendments must be made on the electronic document DICTATION DATE: 10/21/19 1408 STONE DERRICKMAN AND RIGGER: STANTON 10/21/19 1408 RPT#: [id number] DC DATE: STATUS: ADM IN [facility] [address] [facility] [place] [address] END OF REPORT
--- NOTE | 2019-10-21 14:16 | MORECARE ---
CASE MANAGEMENT DISCHARGE SUMMARY PATIENT: MELISSA ISAAC UNIT: [id number] ADM DATE: 10/06/19 AGE: 64 : 51 SEX: M ROOM/BED: D.3584 AUTHOR: YURIDIA,DOC PHYSICIAN: REFERRING PHYSICIAN: AMY YANG MD DATE OF SERVICE: 10/21/19 Discharge Plan Patient Name: MELISSA ISAAC Facility: [facility]:[place] : 1955 Planned Disposition: Anticipated Discharge Date: Discharge Date: Expected LOS: Initial Reviewer: [id number] Initial Review Date: 10/06/2019 Generated: 10/21/19 3:16 pm Comments DCP- Discharge Planning Updated by [email or web address]: Beckie Jacobs on 10/20/19 7:[address] Patient Name: MELISSA ISAAC Encounter No: [id number] : 1955 Primary Insurance: [employer]ASYSMCR Anticipated DC Date: Planned Disposition: External Planned Provider: : DCP follow-up note: CM met with patient to discuss dc plan. Patient stated he did not want to go to [facility] in [place] or in [place]. States he wants to go down stairs to IP rehab. States he lives with his nephews here in [place]. JAZZMINE signed for IP rehab at [facility]. Case management will follow and assist as needed. Beckie Jacobs MSN,RN,CM DCP- Discharge Planning Updated by [email or web address]: Felicitas Frausto on 10/18/19 11:[address] Spoke with patient and nephew today about Plan of care. He would like to go to rehab. I also spoke with Dr Martini about patient and he anticipates he could DC on Sunday. DCP- Discharge Planning Updated by [id number]: Beckie Jacobs on 10/16/19 2:[address] Patient Name: MELISSA ISAAC Encounter No: [id number] : 1955 Primary Insurance: NOVASYSMCR Anticipated DC Date: Planned Disposition: External Planned Provider: : DCP follow-up note: CM contacted [facility] for follow up. Left message and will await return call. Patient had deborah hole today. Case management will follow and assist as needed. Beckie Jacobs MSN,RN,CM DCP- Discharge Planning Updated by [email or web address]: Savannah Anthony on 10/15/19 7:[address] CM contacted patient's daughter, per request of S/O Sabas Stone. Rox Alamo #[phone] ([facility]) gave permission to contact [facility]. Per patient's daughter, Rox Alaom, she is in agreement to this. This will require prior-authorization with patient's insurance. The patient is required to be able to participate in 5-6 hours of Rehab therapy, prior to transfer. Contact: Eileen Tolbert @[phone]. DCP- Discharge Planning Updated by [email or web address]: Ania Mathur on 10/08/19 5:[address] Patient Name: MELISSA ISAAC Admission Status: ER Accout number: [id number] Admission Date: 10-06-2019 : 1955 Admission Diagnosis: Attending: AMY YANG Current LOS: 2 Anticipated DC Date: Planned Disposition: Primary Insurance: [employer] Discharge Planning Comments: CM met with patient at bedside after explaining CM role and obtaining verbal consent. Patient requested CM call and speak to his fianc? Sabas Stone [phone]. CM called Sabas and patient lives at home with his two nephews where he is independent with his care and plans to return there upon discharge. CM discussed availability / needs of home health and medical equipment. Uncertain of any discharge needs at this time. Patient will have his family drive him home upon discharge. CM will continue to follow and assist as needed with discharge planning / needs. Gun Sealing Machine Operator: Ania Mathur DCPIA - Discharge Planning Initial Assessment Updated by [email or web address]: Ania Mathur on 10/08/19 6:51 pm * Is the patient Alert and Oriented? Yes * How many steps to enter\exit or inside your home? * PCP MAYE * [facility]acy [facility] * Preadmission Environment Home with Family * ADLs Independent * Equipment None * List name and contact numbers for known caregivers / representatives who currently or will assist patient after discharge: SABAS STONE - MARIA DEL CARMEN - [phone] [place] - DAUGHTER - [phone] * Verbal permission to speak to the caregivers and representatives has been obtained from the patient. Yes * Community resources currently utilized None * Additional services required to return to the preadmission environment? No * Can the patient safely return to the preadmission environment? Yes * Has this patient been hospitalized within the prior 30 days at any hospital? No External [facility]iders [facility] Next Contact Date: Service Request Date: Service Type: Resolution: Reviewer: Comments: Coverage Notice Reviewer: [id number] Yo Cruz Notice Issued Date-Time: 10/14/2019 14:16 Notice Type: Patient Choice Letter Notice Delivered To: Family Member Relationship to Patient: Daughter Cork Compounder Name: Rox Alamo Delivery Method: PHONE - Phone Francisca Days: Prior Verbal Notification: Recipient Understood Notice: Yes Recipient Signature: Yes Med Rec Note Co-signed by Attending: Coverage Notice Comment: Daughter Rox Alamo gave telephone permission for patient to go to [facility]. Reviewer: [email or web address] oY Jacobs Notice Issued Date-Time: 10/20/2019 8:45 Notice Type: Patient Choice Letter Notice Delivered To: Patient Relationship to Patient: Cork Compounder Name: Delivery Method: HAND - Hand Delivered Francisca Days: Prior Verbal Notification: Recipient Understood Notice: Yes Recipient Signature: Yes Med Rec Note Co-signed by Attending: Coverage Notice Comment: jazzmine SIGNED FOR ip REHAB AT [facility] OR CARE IV HH Last DP export: 10/21/19 1:09 pm Patient Name: MELISSA ISAAC Page [id number] at 1416 All edits/amendments must be made on the electronic document DICTATION DATE: 10/21/19 1416 NUTRITION COUNSELOR: STANTON 10/21/19 1416 RPT#: [id number] DC DATE: STATUS: ADM IN [facility] [address] [place] [address] END OF REPORT
--- NOTE | 2019-10-21 14:31 | NUR ---
OT NOTE: (AM) NURSING STATED THERAPY COULD PROCEED. PT COMPLETED UB HYGIENE TASKS WITH WITH SETUP. PT REQUIRED MOD VERBAL CUES FOR TASK SEQUENCING. PT COMPLETED LB HYGIENE WITH SBA. PT COMPETED ADL MOB WITH CGA. PT COMPLETED SITTING BALANCE WITH SBA. PT TOMAS/DOFF SOCKS WITH SBA. (PM) PT COMPLETED BED MOB WITH SPV. PT COMPLETED UE AROM AX WITH FUNCTIONAL TASKS. PT COMPLETED FACE HYGIENE WITH SETUP. [phone] THANK YOU,AGNIESZKA SANDERS
--- NOTE | 2019-10-21 14:36 | NUR ---
Nutrition Follow-up: Good/fair PO intake. Ate ~75% of breakfast this AM. Diet: Regular, Mech Soft with Thin Liquids, limit free H2O PO intake: 50-75% Wt: 168.3# (10/20); 170.8# (10/13); 165.3# (10/05) Labs noted: Na 130, K+ 3.4, Alb 2.9 Meds noted: Protonix, Floranex, electrolyte protocol -Encourage PO intake and honor food preferences within diet restrictions. -Monitor wt. -RD following.
--- NOTE | 2019-10-21 14:48 | NUR ---
LEFT ELBOW WRAPPED PER MF ORDER, NO DISTRESS NOTED. PT HAD NURSE ASSIST HIM TO CALL FRIEND/FAMILY
--- NOTE | 2019-10-21 15:03 | MORECARE ---
CASE MANAGEMENT DISCHARGE SUMMARY PATIENT: MELISSA ISAAC UNIT: [id number] ADM DATE: 10/06/19 AGE: 64 : 51 SEX: M ROOM/BED: D.8904 AUTHOR: YURIDIA,DOC PHYSICIAN: REFERRING PHYSICIAN: AMY YANG MD DATE OF SERVICE: 10/21/19 Discharge Plan Patient Name: MELISSA ISAAC Facility: [facility]:[place] : 1955 Planned Disposition: Anticipated Discharge Date: Discharge Date: Expected LOS: Initial Reviewer: [email or web address] Initial Review Date: 10/06/2019 Generated: 10/21/19 4:02 pm Comments DCP- Discharge Planning Updated by [email or web address]: Beckie Jacobs on 10/21/19 1:[address] Patient Name: MELISSA ISAAC Encounter No: [id number] : 1955 Primary Insurance: [employer] Anticipated DC Date: Planned Disposition: External Planned Provider: : DCP follow-up note: [facility]ARE [facility] IS NOT IN NETWORK WITH [employer]. REFERRAL SENT TO [facility] @ [phone] PER PT REQUEST. CM CALLED [facility] [phone] FOR REFERRAL FOR ROLLING WALKER FOR DC. [facility] WILL SEND IN ROLLING WALKER FOR DC. DC IMM delivered, explained, signed by the patient, and placed in his chart. Signed form also left with patient. Patient and family in agreement with discharge plan. No changes to plan. Case management will follow and assist as needed. Beckie Jacobs msn,rn,cm DCP- Discharge Planning Updated by [email or web address]: Beckie Jacobs on 10/20/19 7:[address] Patient Name: MELISSA ISAAC Encounter No: [id number] : 1955 Primary Insurance: [employer]MCR Anticipated DC Date: Planned Disposition: External Planned Provider: : DCP follow-up note: CM met with patient to discuss dc plan. Patient stated he did not want to go to [facility] in [place] or in [place]. States he wants to go down stairs to IP rehab. States he lives with his nephews here in [place]. JAZZMINE signed for IP rehab at [facility]. Case management will follow and assist as needed. Beckie OWENS,RN,CM DCP- Discharge Planning Updated by [id number]: Felicitas Frausto on 10/18/19 11:[address] Spoke with patient and nephew today about Plan of care. He would like to go to rehab. I also spoke with Dr Martini about patient and he anticipates he could DC on Sunday. DCP- Discharge Planning Updated by [email or web address]: Beckie Jacobs on 10/16/19 2:[address] Patient Name: MELISSA ISAAC Encounter No: [id number] : 1955 Primary [facility]: [facility] Anticipated DC Date: Planned Disposition: External Planned Provider: : DCP follow-up note: CM contacted [facility] for follow up. Left message and will await return call. Patient had deborah hole today. Case management will follow and assist as needed. Beckie OWENS,RN,CM DCP- Discharge Planning Updated by [email or web address]: Savannah Cruz on 10/15/19 7:[address] CM contacted patient's daughter, per request of S/O Sabas Stone. Rox Alamo #[phone] ([facility]) gave permission to contact [facility]. Per patient's daughter, Rox Alamo, she is in agreement to this. This will require prior-authorization with patient's insurance. The patient is required to be able to participate in 5-6 hours of Rehab therapy, prior to transfer. Contact: Eileen Tomasz @[phone]. DCP- Discharge Planning Updated by [email or web address]: Ania Mathur on 10/08/19 5:[address] Patient Name: MELISSA ISAAC Admission Status: ER Accout number: [id number] Admission Date: 10-06-2019 : 1955 Admission Diagnosis: Attending: AMY YANG Current LOS: 2 Anticipated DC Date: Planned Disposition: Primary Insurance: [facility] Discharge Planning Comments: CM met with patient at bedside after explaining CM role and obtaining verbal consent. Patient requested CM call and speak to his fianc? Sabas Stone [phone]. CM called Sabas and patient lives at home with his two nephews where he is independent with his care and plans to return there upon discharge. CM discussed availability / needs of home health and medical equipment. Uncertain of any discharge needs at this time. Patient will have his family drive him home upon discharge. CM will continue to follow and assist as needed with discharge planning / needs. Case Repairer: Ania Mathur DCPIA - Discharge Planning Initial Assessment Updated by [email or web address]: Ania Mathur on 10/08/19 6:51 pm * Is the patient Alert and Oriented? Yes * How many steps to enter\exit or inside your home? * PCP MAYE * Pharmacy [facility] * Preadmission Environment Home with Family * ADLs Independent * Equipment None * List name and contact numbers for known caregivers / representatives who currently or will assist patient after discharge: SABAS STONE MARIA DEL CARMEN - [phone] [place] - DAUGHTER - [phone] * Verbal permission to speak to the caregivers and representatives has been obtained from the patient. Yes * Community resources currently utilized None * Additional services required to return to the preadmission environment? No * Can the patient safely return to the preadmission environment? Yes * Has this patient been hospitalized within the prior 30 days at any hospital? No Coverage Notice Reviewer: [id number] Yo Cruz Notice Issued Date-Time: 10/14/2019 14:16 Notice Type: Patient Choice Letter Notice Delivered To: Family Member Relationship to Patient: Daughter Notereader Name: Rox Alamo Delivery Method: PHONE - Phone Francisca Days: Prior Verbal Notification: Recipient Understood Notice: Yes Recipient Signature: Yes Med Rec Note Co-signed by Attending: Coverage Notice Comment: Daughter Rox Alamo gave telephone permission for patient to go to [facility]. Reviewer: [id number] Yo Jacobs Notice Issued Date-Time: 10/20/2019 8:45 Notice Type: Patient Choice Letter Notice Delivered To: Patient Relationship to Patient: Notereader Name: Delivery Method: HAND - Hand Delivered Francisca Days: Prior Verbal Notification: Recipient Understood Notice: Yes Recipient Signature: Yes Med Rec Note Co-signed by Attending: Coverage Notice Comment: jazzmine SIGNED FOR ip REHAB AT [facility] OR CARE IV HH Last DP export: 10/21/19 1:16 pm Patient Name: ISAAC MELISSA Page 07469 at 1503 All edits/amendments must be made on the electronic document DICTATION DATE: 10/21/191501 [employer] DISPATCHER: STANTON 10/21/191501 RPT#: [id number] DC DATE: STATUS: ADM IN [facility] [address] [place] [address] END OF REPORT
[2019-10-21] MEDS ORDERED: NORVASC10 MG PO (16:41)
[2019-10-21 17:10] VITALS: BP 130/67
--- NOTE | 2019-10-21 19:18 | NUR ---
ASSISTED PATIENT INTO WHEELCHAIR AND TO THE ER EXIT TO MEET HIS FAMILY. PATIENT STATES HE UNDERSTANDS HIS DISCHARGE INSTRUCTIONS AND HAS NO QUESTIONS. PATIENT TRANSFERED WELL TO CHAIR AND WAS UPSET THAT HE DIDNOT HAVE HIS "SMOKES".
--- NOTE | 2019-10-22 09:13 | MORECARE ---
CASE MANAGEMENT DISCHARGE SUMMARY PATIENT: MELISSA ISAAC UNIT: [id number] ADM DATE: 10/06/19 AGE: 64 : 51 SEX: M ROOM/BED: D.4824 AUTHOR: YURIDIA,DOC PHYSICIAN: REFERRING PHYSICIAN: AMY YANG MD DATE OF SERVICE: 10/22/19 Discharge Plan Patient Name: MELISSA ISAAC Facility: [facility]:[place] : 1955 Planned Disposition: Anticipated Discharge Date: Discharge Date: 10/21/2019 Expected LOS: Initial Reviewer: [id number] Initial Review Date: 10/06/2019 Generated: 10/22/19 10:13 am Comments DCP- Discharge Planning Updated by [id number]: Beckie Jacobs on 10/21/19 1:[address] Patient Name: MELISSA ISAAC Encounter No: [id number] : 1955 Primary Insurance: NOVASYSMCR Anticipated DC Date: Planned Disposition: External Planned Provider: : DCP follow-up note: CARE [facility] IS NOT IN NETWORK WITH [employer]. REFERRAL SENT TO [facility] @ [phone] PER PT REQUEST. CM CALLED [facility] [phone] FOR REFERRAL FOR ROLLING WALKER FOR DC. [facility] WILL SEND IN ROLLING WALKER FOR DC. DC IMM delivered, explained, signed by the patient, and placed in his chart. Signed form also left with patient. Patient and family in agreement with discharge plan. No changes to plan. Case management will follow and assist as needed. Beckie Jacobs msn,rn,cm DCP- Discharge Planning Updated by [email or web address]: Beckie Jacobs on 10/20/19 7:[address] Patient Name: MELISSA ISAAC Encounter No: [id number] : 1955 Primary Insurance: NOVASYSMCR Anticipated DC Date: Planned Disposition: External Planned Provider: : DCP follow-up note: CM met with patient to discuss dc plan. Patient stated he did not want to go to [facility] in [place] or in [place]. States he wants to go down stairs to IP rehab. States he lives with his nephews here in [place]. JAZZMINE signed for IP rehab at [facility]. Case management will follow and assist as needed. Beckie Jacobs MSN,RN,CM DCP- Discharge Planning Updated by [id number]: Felicitas Frausto on 10/18/19 11:[address] Spoke with patient and nephew today about Plan of care. He would like to go to rehab. I also spoke with Dr Martini about patient and he anticipates he could DC on Sunday. DCP- Discharge Planning Updated by [id number]: Beckie Jacobs on 10/16/19 2:[address] Patient Name: MELISSA ISAAC Encounter No: [id number] : 1955 Primary Insurance: [employer] Anticipated DC Date: Planned Disposition: External Planned Provider: : DCP follow-up note: CM contacted [facility] for follow up. Left message and will await return call. Patient had deborah hole today. Case management will follow and assist as needed. Beckie OWENS,RN,CM DCP- Discharge Planning Updated by [email or web address]: Savannah Cruz on 10/15/19 7:[address] CM contacted patient's daughter, per request of S/O Sabas Stone. Rox Alamo #[phone] ([facility]) gave permission to contact [facility]. Per patient's daughter, Rox Alamo, she is in agreement to this. This will require prior-authorization with patient's insurance. The patient is required to be able to participate in 5-6 hours of Rehab therapy, prior to transfer. Contact: Eileen Tomasz @[phone]. DCP- Discharge Planning Updated by [email or web address]: Ania Mathur on 10/08/19 5:[address] Patient Name: MELISSA ISAAC Admission Status: ER Accout number: [id number] Admission Date: 10-06-2019 : 1955 Admission Diagnosis: Attending: AMY YANG Current LOS: 2 Anticipated DC Date: Planned Disposition: [facility] Discharge Planning Comments: CM met with patient at bedside after explaining CM role and obtaining verbal consent. Patient requested CM call and speak to his fianc? Sabas Stone [phone]. CM called Sabas and patient lives at home with his two nephews where he is independent with his care and plans to return there upon discharge. CM discussed availability / needs of home health and medical equipment. Uncertain of any discharge needs at this time. Patient will have his family drive him home upon discharge. CM will continue to follow and assist as needed with discharge planning / needs. Medical File Clerk: Ania Mathur DCMARYAMA - Discharge Planning Initial Assessment Updated by [email or web address]: Ania Mathur on 10/08/19 6:51 pm * Is the patient Alert and Oriented? Yes * How many steps to enter\exit or inside your home? * PCP MAYE * Pharmacy [facility] * Preadmission Environment Home with Family * ADLs Independent * Equipment None * List name and contact numbers for known caregivers / representatives who currently or will assist patient after discharge: SABAS STONE - MARIA DEL CARMEN - [phone] ROX CANCINO IN [place] - DAUGHTER - [phone] * Verbal permission to speak to the caregivers and representatives has been obtained from the patient. Yes * Community resources currently utilized None * Additional services required to return to the preadmission environment? No * Can the patient safely return to the preadmission environment? Yes * Has this patient been hospitalized within the prior 30 days at any hospital? No Coverage Notice Reviewer: [id number] Yo Cruz Notice Issued Date-Time: 10/14/2019 14:16 Notice Type: Patient Choice Letter Notice Delivered To: Family Member Relationship to Patient: Daughter Foundry Molder Name: Rox Alamo Delivery Method: PHONE - Phone Francisca Days: Prior Verbal Notification: Recipient Understood Notice: Yes Recipient Signature: Yes Med Rec Note Co-signed by Attending: Coverage Notice Comment: Daughter Rox Alamo gave telephone permission for patient to go to [facility]. Reviewer: [id number] - Beckie Jacobs Notice Issued Date-Time: 10/20/2019 8:45 Notice Type: Patient Choice Letter Notice Delivered To: Patient Relationship to Patient: Foundry Molder Name: Delivery Method: HAND - Hand Delivered Francisca Days: Prior Verbal Notification: Recipient Understood Notice: Yes Recipient Signature: Yes Med Rec Note Co-signed by Attending: Coverage Notice Comment: jazzmine SIGNED FOR ip REHAB AT [facility] OR [facility] Reviewer: [id number] - Beckie Jacobs Notice Issued Date-Time: 10/21/2019 13:35 Notice Type: IM Discharge Notice Notice Delivered To: Patient Relationship to Patient: Foundry Molder Name: Delivery Method: HAND - Hand Delivered Francisca Days: Prior Verbal Notification: Recipient Understood Notice: Yes Recipient Signature: Yes Med Rec Note Co-signed by Attending: Coverage Notice Comment: DC IMM delivered, explained, signed by the patient, and placed in his chart. Signed form also left with patient. Last DP export: 10/21/19 2:03 pm Patient Name: MELISSA ISAAC Page [id number] at 0913 All edits/amendments must be made on the electronic document DICTATION DATE: 10/22/19912 CHIEF ENTERPRISE ARCHITECT: STANTON 10/22/19912 RPT#: [id number] DC DATE:10/21/19 STATUS: DIS IN [facility] [address] [place] [address] END OF REPORT
--- NOTE | 2019-10-22 18:50 | MORECARE ---
CASE MANAGEMENT DISCHARGE SUMMARY PATIENT: MELISSA IASAC UNIT: [id number] ADM DATE: 10/06/19 AGE: 64 : 53 SEX: M ROOM/BED: D.0514 AUTHOR: YURIDIA,DOC PHYSICIAN: REFERRING PHYSICIAN: AMY YANG MD DATE OF SERVICE: 10/22/19 Discharge Plan Patient Name: MELISSA ISAAC Facility: [facility]:[place] : 1955 Planned Disposition: Anticipated Discharge Date: Discharge Date: 10/21/2019 Expected LOS: Initial Reviewer: [id number] Initial Review Date: 10/06/2019 Generated: 10/22/19 7:50 pm Comments DCP- Discharge Planning Updated by [id number]: Beckie Jacobs on 10/21/19 1:[address] Patient Name: MELISSA ISAAC Encounter No: [id number] : 1955 Primary Insurance: NOVASYSMCR Anticipated DC Date: Planned Disposition: External Planned Provider: : DCP follow-up note: CARE [facility] IS NOT IN NETWORK WITH [employer]. REFERRAL SENT TO [facility] @ [phone] PER PT REQUEST. CM CALLED [facility] [phone] FOR REFERRAL FOR ROLLING WALKER FOR DC. [facility] WILL SEND IN ROLLING WALKER FOR DC. DC IMM delivered, explained, signed by the patient, and placed in his chart. Signed form also left with patient. Patient and family in agreement with discharge plan. No changes to plan. Case management will follow and assist as needed. Beckie Jacobs msn,rn,cm DCP- Discharge Planning Updated by [email or web address]: Beckie Jacobs on 10/20/19 7:[address] Patient Name: MELISSA ISAAC Encounter No: [id number] : 1955 Primary Insurance: NOVASYSMCR Anticipated DC Date: Planned Disposition: External Planned Provider: : DCP follow-up note: CM met with patient to discuss dc plan. Patient stated he did not want to go to [facility] in [place] or in [place]. States he wants to go down stairs to IP rehab. States he lives with his nephews here in [place]. JAZZMINE signed for IP rehab at [facility]. Case management will follow and assist as needed. Beckie Jacobs MSN,RN,CM DCP- Discharge Planning Updated by [email or web address]: Felicitas Frausto on 10/18/19 11:[address] Spoke with patient and nephew today about Plan of care. He would like to go to rehab. I also spoke with Dr Martini about patient and he anticipates he could DC on Sunday. DCP- Discharge Planning Updated by [id number]: Beckie Jacobs on 10/16/19 2:[address] Patient Name: MELISSA ISAAC Encounter No: [id number] : 1955 Primary Insurance: [employer] Anticipated DC Date: Planned Disposition: External Planned Provider: : DCP follow-up note: CM contacted [facility] for follow up. Left message and will await return call. Patient had deborah hole today. Case management will follow and assist as needed. Beckie OWENS,RN,CM DCP- Discharge Planning Updated by [email or web address]: Savannah Cruz on 10/15/19 7:[address] CM contacted patient's daughter, per request of S/O Sabas Stone. Rox [place]amo #[phone] ([facility]) gave permission to contact [facility]. Per patient's daughter, Rox Alamo, she is in agreement to this. This will require prior-authorization with patient's insurance. The patient is required to be able to participate in 5-6 hours of Rehab therapy, prior to transfer. Contact: Eileen Tomasz @[phone]. DCP- Discharge Planning Updated by [id number]: Ania Mathur on 10/08/19 5:[address] Patient Name: MELISSA ISAAC Admission Status: ER Accout number: [id number] Admission Date: 10-06-2019 : 1955 Admission Diagnosis: Attending: AMY YANG Current LOS: 2 Anticipated DC Date: Planned Disposition: [facility] Discharge Planning Comments: CM met with patient at bedside after explaining CM role and obtaining verbal consent. Patient requested CM call and speak to his fianc? Sabas Stone [phone]. CM called Sabas and patient lives at home with his two nephews where he is independent with his care and plans to return there upon discharge. CM discussed availability / needs of home health and medical equipment. Uncertain of any discharge needs at this time. Patient will have his family drive him home upon discharge. CM will continue to follow and assist as needed with discharge planning / needs. Doctor Of Naprapathic Medicine: Ania Mathur DCMARYAMA - Discharge Planning Initial Assessment Updated by [id number]: Ania Mathur on 10/08/19 6:51 pm * Is the patient Alert and Oriented? Yes * How many steps to enter\exit or inside your home? * PCP [facility] * [facility]acy [facility] * Preadmission Environment Home with Family * ADLs Independent * Equipment None * List name and contact numbers for known caregivers / representatives who currently or will assist patient after discharge: SABAS STONE - MARIA DEL CARMEN - [phone] [place] - DAUGHTER - [phone] * Verbal permission to speak to the caregivers and representatives has been obtained from the patient. Yes * Community resources currently utilized None * Additional services required to return to the preadmission environment? No * Can the patient safely return to the preadmission environment? Yes * Has this patient been hospitalized within the prior 30 days at any hospital? No Coverage Notice Reviewer: [id number] Yo Cruz Notice Issued Date-Time: 10/14/2019 14:16 Notice Type: Patient Choice Letter Notice Delivered To: Family Member Relationship to Patient: Daughter Automatic Stacker Name: Rox Alamo Delivery Method: PHONE - Phone Francisca Days: Prior Verbal Notification: Recipient Understood Notice: Yes Recipient Signature: Yes Med Rec Note Co-signed by Attending: Coverage Notice Comment: Daughter Rox Alamo gave telephone permission for patient to go to [facility]. Reviewer: [id number] - Beckie Jacobs Notice Issued Date-Time: 10/20/2019 8:45 Notice Type: Patient Choice Letter Notice Delivered To: Patient Relationship to Patient: Automatic Stacker Name: Delivery Method: HAND - Hand Delivered Francisca Days: Prior Verbal Notification: Recipient Understood Notice: Yes Recipient Signature: Yes Med Rec Note Co-signed by Attending: Coverage Notice Comment: jazzmine SIGNED FOR ip REHAB AT [facility] OR [facility] Reviewer: [id number] - Beckie Jacobs Notice Issued Date-Time: 10/21/2019 13:35 Notice Type: IM Discharge Notice Notice Delivered To: Patient Relationship to Patient: Automatic Stacker Name: Delivery Method: HAND - Hand Delivered Francisca Days: Prior Verbal Notification: Recipient Understood Notice: Yes Recipient Signature: Yes Med Rec Note Co-signed by Attending: Coverage Notice Comment: DC IMM delivered, explained, signed by the patient, and placed in his chart. Signed form also left with patient. Last DP export: 10/22/19 8:13 am Patient Name: MELISSA ISAAC Page [id number] at 1850 All edits/amendments must be made on the electronic document DICTATION DATE: 10/22/191849 CLUB CONCIERGE: STANTON 10/22/191849 RPT#: [id number] DC DATE:10/21/19 STATUS: DIS IN [facility] [address] [place] [address] END OF REPORT
== END 2019-10-21 19:20 | disposition home health service (06) | DRG 25 ==
LOC: D.ER 14:58 → D.CVICU 20:23 → D.M2 20:23 → D.ICU 20:23 → D.CVICU 10-08 17:30 → D.ICU 10-09 08:27 → D.M2 10-14 18:05 → D.SDCHOLD 10-17 12:24 → D.M2 10-17 12:33
PROVIDERS: Anesthesiology; Family Medicine; ADMIT Internal Medicine Nephrology; ATTEND Internal Medicine Nephrology
PROC: 0HQEXZZ Repair Left Lower Arm Skin, External Approach (ICD-10-PCS; principal; 2019-10-06)
PROC: 00943ZZ Drainage of Intracranial Subdural Space, Percutaneous Approach (ICD-10-PCS; 2019-10-16)
DX: S06.5X0A Traumatic subdural hemorrhage without loss of consciousness, initial encounter (principal); G93.41 Metabolic encephalopathy; I16.1 Hypertensive emergency; E87.1 Hypo-osmolality and hyponatremia; F17.203 Nicotine dependence unspecified, with withdrawal; L03.114 Cellulitis of left upper limb; F32.9 Major depressive disorder, single episode, unspecified; F20.9 Schizophrenia, unspecified; F03.90 Unspecified dementia, unspecified severity, without behavioral disturbance, psychotic disturbance, mood disturbance, and anxiety; K21.9 Gastro-esophageal reflux disease without esophagitis; M19.90 Unspecified osteoarthritis, unspecified site; J44.9 Chronic obstructive pulmonary disease, unspecified; E78.5 Hyperlipidemia, unspecified; E11.9 Type 2 diabetes mellitus without complications; R26.9 Unspecified abnormalities of gait and mobility; F14.10 Cocaine abuse, uncomplicated; F12.10 Cannabis abuse, uncomplicated; F10.10 Alcohol abuse, uncomplicated; R40.2242 Coma scale, best verbal response, confused conversation, at arrival to emergency department; R40.2362 Coma scale, best motor response, obeys commands, at arrival to emergency department; R40.2142 Coma scale, eyes open, spontaneous, at arrival to emergency department

== ENCOUNTER 2019-10-25 12:54 | Emergency (ER) | payer OTHER ==
[~2019-10-25] VITALS: Ht 175.3 cm; Wt 76.4 kg
[~2019-10-25 12:54] MED LIST changes: +GLUCOPHAGE500 MG PO; +NORVASC10 MG PO
[2019-10-25 12:59] VITALS: Ht 175.3 cm; Wt 76.4 kg
[2019-10-25] MEDS ORDERED: NAPROSYN500 MG PO (14:25)
[2019-10-25 14:36] VITALS: BP 158/89
== END 2019-10-25 14:37 | disposition home or self-care (01) ==
LOC: D.ER 12:54
DX: M71.9 Bursopathy, unspecified (principal); M25.522 Pain in left elbow; E11.9 Type 2 diabetes mellitus without complications; I10 Essential (primary) hypertension; J44.9 Chronic obstructive pulmonary disease, unspecified; K21.9 Gastro-esophageal reflux disease without esophagitis; F03.90 Unspecified dementia, unspecified severity, without behavioral disturbance, psychotic disturbance, mood disturbance, and anxiety; Z72.0 Tobacco use